=== PATIENT | female | born 1950 | race Hispanic/Latino ===

== ENCOUNTER → 2023-04-27 | Outpatient (CLI) | payer MEDICARE | END | disposition home or self-care (01) | LOC: RAH 10:27 | PROVIDERS: ATTEND Internal Medicine Nephrology | DX: Z12.31 Encounter for screening mammogram for malignant neoplasm of breast (principal) | CPT/HCPCS: 77067 ==

== ENCOUNTER → 2023-06-01 | Outpatient (CLI) | payer OTHER | END | disposition home or self-care (01) | LOC: OIH 08:28 | PROVIDERS: ATTEND Internal Medicine Cardiovascular Disease | DX: Z13.6 Encounter for screening for cardiovascular disorders (principal) | CPT/HCPCS: 75571 ==

== ENCOUNTER 2023-06-28 21:13 | Emergency (ER) | payer MEDICARE ==
[~2023-06-28] VITALS: Ht 154.9 cm; Wt 80.7 kg
[2023-06-28 22:12] VITALS: BP 160/70; PULSE 89; RESP 16; O2SAT 100
[2023-06-28 22:55] LABS: BASOPHILS # (AUTO) 0.03 K/uL (0.00-0.20); BASOPHILS % (AUTO) 0.3 % (0.0-5.0); EOSINOPHILS # (AUTO) 0.03 K/uL (0.00-0.70); EOSINOPHILS % (AUTO) 0.3 % (0.0-8.0); HEMATOCRIT 38.2 % (36-48); IMMATURE GRANULOCYTE ABSOLUTE 0.04 K/uL (0-1); LYMPHOCYTES # (AUTO) 2.3 K/uL (1.0-4.8); LYMPHOCYTES % (AUTO) 19.9 % (21.0-51.0); MEAN CORPUSCULAR HEMOGLOBIN 28.3 pg (27.0-33.0); MEAN CORPUSCULAR VOLUME 85.8 fL (79-99); MONOCYTES # (AUTO) 0.6 K/uL (0.1-1.0); MONOCYTES % (AUTO) 4.9 % (3.0-13.0); NEUTROPHILS # (AUTO) 8.4 K/uL (1.8-7.7); NEUTROPHILS % (AUTO) 74.2 % (40.0-77.0); PLATELET COUNT (AUTO) 276 K/uL (130-400); RED BLOOD CELL COUNT(AUTO) 4.45 MIL/uL (4.00-5.50); RED CELL DISTRIBUTION WIDTH 12.8 % (11.0-15.5); WHITE BLOOD COUNT (AUTO) 11.4 K/uL (4.8-10.8)
[2023-06-28 23:09] LABS: CREATININE 0.6 mg/dL (0.5-1.5); POTASSIUM 3.4 mmol/L (3.5-5.1)
[2023-06-28 23:13] LABS: ALBUMIN 3.9 g/dL (3.5-5.0); BILIRUBIN,TOTAL 0.2 mg/dL (0.2-1.0); TOTAL PROTEIN, SERUM 9.4 g/dL (6.0-8.3)
[2023-06-28 23:20] LABS: APPEARANCE,URINE CLEAR (CLEAR); BILIRUBIN,URINE NEGATIVE (NEGATIVE); GLUCOSE, URINE (UA) NEGATIVE (NEGATIVE); KETONES,URINE NEGATIVE (NEGATIVE); LEUKOCYTE ESTERASE ,URINE NEGATIVE Leu/uL (NEGATIVE); NITRATE,URINE NEGATIVE (NEGATIVE); OCCULT BLOOD,URINE NEGATIVE (NEGATIVE); PH,URINE 6.5 (5.0-8.0); PROTEIN,URINE NEGATIVE (NEGATIVE); UROBILINOGEN,URINE 0.2 mg/dL (0.2-1.0)
[2023-06-28 23:21] LABS: ADD UA MICROSCOPIC NO; COLOR,URINE Light-Yellow (YELLOW)
== END 2023-06-29 00:16 | disposition home or self-care (01) ==
LOC: EDH 21:13
DX: F41.9 Anxiety disorder, unspecified (principal); I10 Essential (primary) hypertension; Z90.49 Acquired absence of other specified parts of digestive tract
CPT/HCPCS: 36415; 80053; 81003; 84484; 85025; 93005

== ENCOUNTER → 2023-08-31 | Outpatient (CLI) | payer MEDICARE | END | disposition home or self-care (01) | LOC: RAH 14:42 | PROVIDERS: ATTEND Internal Medicine Nephrology | DX: Z78.0 Asymptomatic menopausal state (principal) | CPT/HCPCS: 77080 ==

== ENCOUNTER 2024-03-19 12:38 | Emergency (ER) | payer MEDICARE ==
[~2024-03-19] VITALS: Ht 154.9 cm; Wt 80.3 kg
[2024-03-19 13:21] LABS: BASOPHILS # (AUTO) 0.02 K/uL (0.00-0.20); BASOPHILS % (AUTO) 0.2 % (0.0-5.0); EOSINOPHILS # (AUTO) 0.05 K/uL (0.00-0.70); EOSINOPHILS % (AUTO) 0.6 % (0.0-8.0); HEMATOCRIT 37.1 % (36-48); IMMATURE GRANULOCYTE ABSOLUTE 0.03 K/uL (0-1); LYMPHOCYTES # (AUTO) 1.3 K/uL (1.0-4.8); LYMPHOCYTES % (AUTO) 15.6 % (21.0-51.0); MEAN CORPUSCULAR HEMOGLOBIN 29.2 pg (27.0-33.0); MEAN CORPUSCULAR HGB CONC 33.2 g/dL (32.0-36.0); MEAN CORPUSCULAR VOLUME 88.1 fL (79-99); MONOCYTES # (AUTO) 0.6 K/uL (0.1-1.0); NEUTROPHILS # (AUTO) 6.4 K/uL (1.8-7.7); NEUTROPHILS % (AUTO) 76.2 % (40.0-77.0); PLATELET COUNT (AUTO) 278 K/uL (130-400); RED BLOOD CELL COUNT(AUTO) 4.21 MIL/uL (4.00-5.50); RED CELL DISTRIBUTION WIDTH 13.2 % (11.0-15.5); WHITE BLOOD COUNT (AUTO) 8.3 K/uL (4.8-10.8)
[2024-03-19 13:40] LABS: CREATININE 0.7 mg/dL (0.5-1.0); POTASSIUM 3.9 mmol/L (3.5-5.1)
[2024-03-19 14:30] LABS: INR 0.98 (0.85-1.15); PROTHROMBIN TIME 10.6 SEC (9.6-11.6)
[2024-03-19 14:31] LABS: PARTIAL THROMBOPLASTIN TIME 29.3 SEC (26.3-35.5)
[2024-03-19 14:57] VITALS: BP 163/64; PULSE 94; RESP 16; O2SAT 96
== END 2024-03-19 15:30 | disposition home or self-care (01) ==
LOC: EDH 12:38
DX: R04.0 Epistaxis (principal); E78.00 Pure hypercholesterolemia, unspecified; I10 Essential (primary) hypertension; Z90.710 Acquired absence of both cervix and uterus
CPT/HCPCS: 36415; 80048; 85025; 85610; 85730

== ENCOUNTER 2024-10-04 18:22 | Emergency (ER) | payer MEDICARE ==
[~2024-10-04] VITALS: Ht 157.5 cm; Wt 79.8 kg
--- NOTE | 2024-10-04 18:29 | ERN ---
ED Note History of Present Illness Stated Complaint: BODY ACHES, LIGHT HEADED Time Seen by MD: 18:22 Time Seen by Midlevel: 18:22 Dictation: The patient is a 74-year-old female with a history of hypertension, hyperlipidemia presents to the emergency department with multiple complaints. Patient reports that she has been having a frontal headache for several weeks. Reports she takes tramadol which causes her to be dizzy. Patient reports that she was also having some nasal congestion, sore throat. Reports that she was eating today and her jaw started to hurt with chewing. Denies any nausea or vomiting. Allergies: Coded Allergies: thimerosal (Unverified Allergy, Unknown, 06/28/23) Home Meds Active Scripts Meclizine HCl (Meclizine HCl) 25 Mg Tablet, 25 MG PO TID for vertigo, #15 TAB 0 Refills Prov:RAÚL DANIELS [employer]GREASING [employer]UTION [employer]ER 10/04/24 Past Medical History Past Medical History: High Cholesterol, Hypertension Surgical History: Hysterectomy, Other Surgical History Other: RT OVARIAN TUMOR REMOVAL, RT EYE SX, SINUS SX Family History: DM, HTN Social History: Negative, Lives with family History: Not Applicable RN Note Reviewed/Agreed w/PFSH: Yes Review of System Dictation Constitutional: Negative for fever,chills, and weight loss Eyes: Negative for injury, pain,redness, and discharge ENT: Negative for injury,pain or swelling positive for sore throat, nasal congestion Cardiovascular: Negative for chest pain, palpitations, and edema Respiratory: Negative for shortness of breath, cough, and wheezing, Abdomen/GI: Negative for abdominal pain, nausea, vomiting, diarrhea, and constipation Back: Negative for injury and pain : Negative for injury, bleeding and discharge MS/Extremity: Negative for injury and deformity Skin: Negative for rash, and discoloration Neuro: Negative for weakness, numbness, tingling, and seizure positive for headache Psych: Negative for suicide ideation, homicidal ideation, and hallucinations Initial Vital Sign VS Vital Signs Date Time Temp Pulse Resp B/P (MAP) Pulse Ox O2 Delivery O2 Flow Rate FiO2 10/04/24 18:50 97.0 104 20 198/81 97 10/04/24 20:39 Room Air* 0 21 Physical Exam Dictation Vital Signs reviewed General Appearance: Alert, oriented x 3, no acute distress, well developed, nourished. Head and Face: non-traumatic. Eyes: PERRL, pink conjunctivas, eyelid no trauma, anterior chamber with arcus senilis. Ears: Pinnas intact and no signs of trauma or erythema ear canals clear and no discharge TM no erythema Nose: No discharge, no bleeding. Oropharynx: Mouth normal, tongue pink. pharynx clear,no erythema, tonsils no exudates, no abscesses noted, mucous membrane moist Neck: Supple, non-tender, no thyromegaly, no masses, no JVD, no bruits Breast:Deferred Chest:No tenderness, no crepitus, no paradoxical movement, no retractions Lungs:Clear, well-ventilated, symmetric, no rales, no wheezing, no rhonchi, no stridor, good breath sounds bilaterally Heart: Regular rate, regular rhythm, no murmur, no gallops Vascular: no peripheral edema, Abdomen: Soft, positive bowel sounds, nondistended, no guarding, nontender, no rebound, no masses no hepatomegaly, no splenomegaly, no Rivera's sign, no hernias. Rectal: Deferred Genital: Deferred Neurological: Normal speech, motor function intact, sensory function intact , upper extremities equal and strength, lower extremities equal and strength Musculoskeletal: Neck nontender, full range of motion, back nontender, full range of motion, Extremities: nontender, full range of motion Skin: Color pink, dry, no turgor, no rash, no lacerations, no abrasions, no contusions. Lymphatic: Deferred Results (Laboratory/Radiology) Laboratory/Radiology Laboratory Tests Test 10/04/24 19:50 10/04/24 19:51 Influenza Type A Antigen Negative For Type A Influenza Type B Antigen Negative For Type B SARS-CoV-2 Antigen (Rapid) PRESUMPTIVE NEGATIVE White Blood Count 8.5 K/uL (4.8-10.8) Red Blood Count 3.88 MIL/uL (4.00-5.50) L Hemoglobin 11.0 g/dL (12.0-16.0) L Hematocrit 34.1 % (36-48) L Mean Corpuscular Volume 87.9 fL (79-99) Mean Corpuscular Hemoglobin 28.4 pg (27.0-33.0) Mean Corpuscular Hemoglobin Concent 32.3 g/dL (32.0-36.0) Red Cell Distribution Width 12.9 % (11.0-15.5) Platelet Count 261 K/uL (130-400) Mean Platelet Volume 8.3 fL (7.5-10.5) Immature Granulocyte % (Auto) 0.5 % (0-1) Neutrophils (%) (Auto) 65.9 % (40.0-77.0) Lymphocytes (%) (Auto) 24.3 % (21.0-51.0) Monocytes (%) (Auto) 7.6 % (3.0-13.0) Eosinophils (%) (Auto) 1.3 % (0.0-8.0) Basophils (%) (Auto) 0.4 % (0.0-5.0) Neutrophils # (Auto) 5.6 K/uL (1.8-7.7) Lymphocytes # (Auto) 2.1 K/uL (1.0-4.8) Monocytes # (Auto) 0.7 K/uL (0.1-1.0) Eosinophils # (Auto) 0.11 K/uL (0.00-0.70) Basophils # (Auto) 0.03 K/uL (0.00-0.20) Absolute Immature Granulocyte (auto 0.04 K/uL (0-1) Nucleated Red Blood Cells 0.0 % (0.0-0.19) Sodium Level 132 mmol/L (136-145) L Potassium Level 3.1 mmol/L (3.5-5.1) L Chloride Level 99 mmol/L (101-111) L Carbon Dioxide Level 37 mmol/L (21-32) H Blood Urea Nitrogen 16 mg/dL (7-18) Creatinine 0.5 mg/dL (0.5-1.0) Glomerular Filtration Rate Calc 99 mL/min (>90) Random Glucose 103 mg/dL (70-105) Total Calcium 9.5 mg/dL (8.5-10.1) Troponin I High Sensitivity 14 ng/L (4-50) REASON: headache ORDERING PHYSICIAN: RAÚL DANIELS PROCEDURE: HEAD WO - CT HEAD/BRAIN W/O CONTRAST CT HEAD WITHOUT CONTRAST INDICATION: Headache TECHNIQUE: Noncontrast axial helical CT images from the vertex through the skull base using 5 mm slice thickness without contrast material. CT was performed with one or more of the following dose reduction techniques: Automated exposure control, adjustment of the mA and/or kV according to patient size, or use of iterative reconstruction technique. COMPARISON: None FINDINGS: The cerebral and cerebellar hemispheres are age-appropriate in appearance. No evidence for abnormal extra-axial fluid collections or masses. The ventricles and sulci are normal in size and configuration. No evidence for intracranial parenchymal, epidural, or subdural hemorrhage, mass effect or midline shift. The grayson-white matter differentiation is well preserved. No secondary evidence to suggest acute ischemia. The brainstem and cerebellum appear normal. The visualized orbits appear unremarkable. The visible paranasal sinuses and mastoid air cells are clear. The calvarium appears normal. IMPRESSION: No acute intracranial process identified. Labs Reviewed?: Yes EKG: (+) rhythm (Sinus rhythm) EKG Comment: Date:10/04/2024 Time: 1918 Ventricular rate:73 [place] interval:150 QRS duration:80 QT/QTc:404 EKG interpretation: Sinus rhythm Reviewed by ED Attending no STEMI ED Course ED Course Orders Procedure Category Date Status Time Cbc With Differential LAB 10/04/24 Complete 18:59 Chest 1vw RAD 10/04/24 Resulted 18:59 12 Lead Ekg Tracing- EKG 10/04/24 Logged Technical 18:59 Acetaminophen 325 Tab PHA 10/04/24 Complete (Tylenol 325mg Tab 19:00 Troponin I High LAB 10/04/24 Complete Sensitivity 18:59 Basic Metabolic Panel LAB 10/04/24 Complete 18:59 Ct Head/Brain W/O CT 10/04/24 Resulted Contrast 18:59 Covid19 (Sars Antigen LAB 10/04/24 Complete Rapid) 18:59 Influenza Type A & B, LAB 10/04/24 Complete Rapid 18:59 Potassium Bicarb/Cit PHA 10/04/24 Complete Ac 25meq (K-Lyte Ta 21:00 Current Medications Medications (Trade) Dose Ordered Sig/Sunshine Route PRN Reason Start Time Stop Time Status Last Admin Dose Admin Acetaminophen (TYLenol 325MG TAB) 650 mg ONCE ONCE PO 10/04/24 19:00 10/04/24 19:03 DC 10/04/24 20:23 Potassium Bicarbonate (K-Lyte Tablet Eff 25 Meq Tablet.eff) 25 meq ONCE PO 10/04/24 21:00 10/04/24 21:34 DC 10/04/24 20:50 Vital Signs Date Time Temp Pulse Resp B/P (MAP) Pulse Ox O2 Delivery O2 Flow Rate FiO2 10/04/24 20:39 97.0 74 18 157/75 98 Room Air* 0 21 10/04/24 18:50 97.0 104 20 198/81 97 Medical Decision Making MDM The patient is a 74-year-old female with a history of hypertension, hyperlipidemia presents to the emergency department with multiple complaints. Patient reports that she has been having a frontal headache for several weeks. Reports she takes tramadol which causes her to be dizzy. Patient reports that she was also having some nasal congestion, sore throat. Reports that she was eating today in her jaw started to hurt. Denies any nausea or vomiting. CBC showed no leukocytosis, mild normocytic anemia, chemistry showed mild hyponatremia, hypokalemia, normal renal function, negative troponin, serology negative. CT showed no acute pathology. EKG showed normal sinus rhythm, patient in no acute distress, neurologically intact., nontoxic appearance. Will be discharged to follow up with PCP. Differential diagnosis: ACS, pneumonia, upper respiratory infection, intracerebral hemorrhage Need for hospitalization: Patient does not meet criteria for hospitalization. There are no social concerns with this patient. DX & DISP Disposition: Discharge Departure Impression: Primary Impression: URI (upper respiratory infection) Additional Impressions: Hypokalemia, Hyponatremia, Headache, Anemia Condition: Stable Scripts Meclizine HCl (Meclizine HCl) 25 Mg Tablet 25 MG PO TID for vertigo, #15 TAB 0 Refills Prov: RAÚL DANIELS 10/04/24 Referrals: GREGORY GONZALES MD (PCP) Time of Disposition: 20:58 I have reviewed the case, and I agree with, Diagnosis and Plan I performed a substantive portion of the visit. I have reviewed and personally made and approve the management plan that is documented in the notes by myself with RUSTY/resident. I acknowledged full responsibility for the patient's management plan. RAÚL DANIELS Oct 04, 2024 18:29 RAFAELA HERRERA DO Oct 05, 2024 00:03
--- NOTE | 2024-10-04 19:41 | HMCIMG ---
CT HEAD WITHOUT CONTRAST INDICATION: Headache TECHNIQUE: Noncontrast axial helical CT images from the vertex through the skull base using 5 mm slice thickness without contrast material. CT was performed with one or more of the following dose reduction techniques: Automated exposure control, adjustment of the mA and/or kV according to patient size, or use of iterative reconstruction technique. COMPARISON: None FINDINGS: The cerebral and cerebellar hemispheres are age-appropriate in appearance. No evidence for abnormal extra-axial fluid collections or masses. The ventricles and sulci are normal in size and configuration. No evidence for intracranial parenchymal, epidural, or subdural hemorrhage, mass effect or midline shift. The grayson-white matter differentiation is well preserved. No secondary evidence to suggest acute ischemia. The brainstem and cerebellum appear normal. The visualized orbits appear unremarkable. The visible paranasal sinuses and mastoid air cells are clear. The calvarium appears normal. IMPRESSION: No acute intracranial process identified.
[2024-10-04 19:59] LABS: BASOPHILS # (AUTO) 0.03 K/uL (0.00-0.20); BASOPHILS % (AUTO) 0.4 % (0.0-5.0); EOSINOPHILS # (AUTO) 0.11 K/uL (0.00-0.70); EOSINOPHILS % (AUTO) 1.3 % (0.0-8.0); HEMATOCRIT 34.1 % (36-48); IMMATURE GRANULOCYTE ABSOLUTE 0.04 K/uL (0-1); LYMPHOCYTES # (AUTO) 2.1 K/uL (1.0-4.8); LYMPHOCYTES % (AUTO) 24.3 % (21.0-51.0); MEAN CORPUSCULAR HEMOGLOBIN 28.4 pg (27.0-33.0); MEAN CORPUSCULAR HGB CONC 32.3 g/dL (32.0-36.0); MEAN CORPUSCULAR VOLUME 87.9 fL (79-99); MONOCYTES # (AUTO) 0.7 K/uL (0.1-1.0); MONOCYTES % (AUTO) 7.6 % (3.0-13.0); NEUTROPHILS # (AUTO) 5.6 K/uL (1.8-7.7); NEUTROPHILS % (AUTO) 65.9 % (40.0-77.0); PLATELET COUNT (AUTO) 261 K/uL (130-400); RED BLOOD CELL COUNT(AUTO) 3.88 MIL/uL (4.00-5.50); RED CELL DISTRIBUTION WIDTH 12.9 % (11.0-15.5); WHITE BLOOD COUNT (AUTO) 8.5 K/uL (4.8-10.8)
[2024-10-04 20:14] LABS: CREATININE 0.5 mg/dL (0.5-1.0)
[2024-10-04 20:18] LABS: POTASSIUM 3.1 mmol/L (3.5-5.1)
[2024-10-04] MEDS: acetaMINOPHEN 325 MG TAB PO ONE (20:23)
[2024-10-04 20:25] LABS: COVID19 (SARS ANTIGEN RAPID) PRESUMPTIVE NEGATIVE (NEGATIVE); INFLUENZA TYPE A Negative For Type A (NEGATIVE); INFLUENZA TYPE B Negative For Type B (NEGATIVE)
[2024-10-04 20:39] VITALS: BP 157/75; PULSE 74; RESP 18; TEMP 97; O2SAT 98
[2024-10-04] MEDS: PoTASSium BIcarbonate/CIT AC 25 MEQ TABLET.EFF PO SCH (20:50)
[2024-10-04] MEDS ORDERED: MECL-302 PO (21:31)
--- NOTE | 2024-10-04 23:04 | HMCIMG ---
CHEST 1VW HISTORY: Chest pain COMPARISON: None FINDINGS: A frontal projection of the chest was obtained. Mild bilateral pulmonary infiltrates are seen may be related to mild pulmonary vascular congestion with possible superimposed pneumonitis. The heart is borderline enlarged. Degenerative changes are seen. No evidence of aortic calcification is seen. IMPRESSION: 1. Mild bilateral pulmonary infiltrates are seen may be related to mild pulmonary vascular congestion with possible superimposed pneumonitis.
--- NOTE | 2024-10-05 06:23 | EKG ---
[facility] Test Date: 2024-10-04 Test Time: 19:19:17 Pat Name: OVIDIO AIKEN Department: ED Room: Gender: Female [employer]iner: [id number] : 1950 Requested By: RAÚL DANIELS Order Number: [id number] Reading MD: Measurements Intervals [place] Rate: 89 P: 73 MN: 150 QRS: 1 QRSD: 80 T: 18 QT: 332 QTc: 404 Interpretive Statements Sinus rhythm No previous ECG available for comparison Please click the below link to view image of tracing.
== END 2024-10-04 21:33 | disposition home or self-care (01) ==
LOC: EDH 18:22
DX: J06.9 Acute upper respiratory infection, unspecified (principal); E87.6 Hypokalemia; E78.00 Pure hypercholesterolemia, unspecified; D64.9 Anemia, unspecified; R51.9 Headache, unspecified; E87.1 Hypo-osmolality and hyponatremia; I10 Essential (primary) hypertension; Z90.710 Acquired absence of both cervix and uterus; Z79.899 Other long term (current) drug therapy; Z20.822 Contact with and (suspected) exposure to COVID-19
CPT/HCPCS: 36415; 70450; 71045; 80048; 84484; 85025; 87426; 87804; 93005; 99285

== ENCOUNTER → 2024-10-18 | Outpatient (CLI) | payer MEDICARE ==
[~2024-10-18] MED LIST: MECL-302 PO
--- NOTE | 2024-10-18 13:20 | HMCIMG ---
Exam Type: CHEST 1VW Clinical Information: Shortness of breath Comparison: None Findings: The lungs are clear of infiltrates. The heart is normal in size. The bony and soft tissue structures of the chest are unremarkable. Impression: Clear lungs.
== END | disposition home or self-care (01) ==
LOC: RAH 12:13
PROVIDERS: ATTEND Internal Medicine Nephrology
DX: R06.02 Shortness of breath (principal)
CPT/HCPCS: 71045

== ENCOUNTER 2025-04-23 15:31 | Observation (INO) | payer MEDICARE ==
[~2025-04-23] VITALS: Ht 154.9 cm; Wt 81.0 kg
[~2025-04-23 15:31] MED LIST changes: -AMLO2.5T4 PO; -ESTR1TAB21 PO; -FURO20TA4 PO; -LEVO100 PO; -LOSA50TA64 PO; -TRAM50TA4 PO
--- NOTE | 2025-04-23 16:05 | ERN ---
General Chief Complaint: Dizzy/Light Headed Stated Complaint: DIZZY AFTER XRAY Time Seen by MD: 15:36 Source: patient History of Present Illness Initial Comments PATIENT IS A 74-YEAR-OLD FEMALE COMING IN COMPLAINING OF WORSENING VERTIGO. PER PATIENT SHE WAS DIAGNOSED WITH A VERTIGO MANY WHEN SHE GOT COVID. HE STATES HE WAS LAYING DOWN GETTING AN X-RAY WHEN SHE GOT UP SHE FELT VERY DIZZY ALSO DOWN. STATES HE GOT DIAPHORETIC WELL. Allergies: Coded Allergies: thimerosal (Unverified Allergy, Unknown, 06/28/23) Home Meds Active Scripts Meclizine HCl (Meclizine HCl) 25 Mg Tablet, 25 MG PO TID for vertigo, #15 TAB 0 Refills Prov:RAÚL DANIELS HOSPICE PHYSICIAN 10/04/24 Past Medical History Past Medical History: High Cholesterol, Hypertension Medical History Other: VERTIGO Past Surgical History: Hysterectomy, Other Surgical History Other: RT OVARIAN TUMOR REMOVAL, RT EYE SX, SINUS SX Family History Family History: DM, HTN Social History Social History: Negative, Lives with family Female( History) History: Not Applicable ROS Dictation CONSTITUTIONAL: NO CHILLS, NO FEVER, NO WEAKNESS, NO DIAPHORESIS, NO MALAISE. HEAD/FACE: NO SIGNS OF TRAUMA. EENT: NO EYE PAIN, NO BLURRED VISION, NO TEARING, NO DOUBLE VISION, NO EAR PAIN, NO EAR DISCHARGE, NO NOSE PAIN, NO NASAL CONGESTION, NO THROAT PAIN, NO THROAT SWELLING, NO MOUTH PAIN. RESPIRATORY: NO COUGH, NO ORTHOPNEA, NO SOB, NO STRIDOR, NO WHEEZING. CARDIOVASCULAR: NO CHEST PAIN, NO EDEMA, NO PALPITATIONS, NO SYNCOPE. GASTROINTESTINAL/ABDOMINAL: NO ABDOMINAL PAIN, NO CONSTIPATION, NO DIARRHEA, NO NAUSEA, NO VOMITING. GENITOURINARY: NO ABNORMAL DISCHARGE, NO DYSURIA, NO FREQUENT URINATION, NO HEMATURIA. NO COMPLAINTS OF PAIN IN THE GENITALS. MUSCULOSKELETAL: NO BACK PAIN, NO GOUT, NO JOINT PAIN, NO JOINT SWELLING, NO MUSCLE PAIN, NO MUSCLE STIFFNESS, NO NECK PAIN. INTEGUMENTARY: NO CHANGE IN COLOR, NO CHANGE IN HAIR/NAILS, NO DRYNESS, NO LESION, NO LUMPS, NO RASH. NEUROLOGICAL/PSYCH: NO ANXIETY, NOT DEPRESSED, NO EMOTIONAL PROBLEM, NO HEADACHE, NO NUMBNESS, NO PRE-EXISTING DEFICIT, NO HISTORY OF SEIZURES, NO TREMORS, NO WEAKNESS. HEMATOLOGIC/LYMPHATIC: NOT ANEMIC, NO HISTORY OF BLOOD CLOTS, NO APPARENT BLEEDING, NO BRUISING, GLANDS NOT SWOLLEN. ALL SYSTEMS NEGATIVE, EXCEPT NOTED. Physical Exam Physical Exam Dictation VITAL SIGNS: REVIEWED. GENERAL APPEARANCE: ALERT, ORIENTED X3, NO ACUTE DISTRESS, OBESE. HEAD AND FACE: NON-TRAUMATIC. EYES: PERRL, PINK CONJUNCTIVAS, EYELID NO TRAUMA, ANTERIOR CHAMBER CLEAR. EARS: PINNAS INTACT AND NO SIGNS OF TRAUMA OR ERYTHEMA. EAR CANALS CLEAR AND NO DISCHARGE. TMS NO ERYTHEMA. NOSE: NO DISCHARGE, NO BLEEDING. OROPHARYNX: MOUTH NORMAL, TEETH NO CARIES, TONGUE PINK. PHARYNX CLEAR, NO ERYTHEMA. TONSILS NO EXUDATES, NO ABSCESSES NOTED. MUCOUS MEMBRANE MOIST. NECK: SUPPLE, NON-TENDER, NO THYROMEGALY, NO MASSES, NO JVD, NO BRUITS. BREAST: DEFERRED. CHEST: NO TENDERNESS, NO CREPITUS, NO PARADOXICAL MOVEMENT, NO RETRACTIONS. LUNGS: CLEAR, WELL-VENTILATED, SYMMETRIC, NO RALES, NO WHEEZING, NO RHONCHI, NO STRIDOR, GOOD BREATH SOUNDS BILATERALLY. HEART: REGULAR RATE, REGULAR RHYTHM, NO MURMUR, NO GALLOPS. VASCULAR: NO PERIPHERAL EDEMA. ABDOMEN: SOFT, POSITIVE BOWEL SOUNDS, NONDISTENDED, NO GUARDING, NONTENDER, NO REBOUND, NO MASSES NO HEPATOMEGALY, NO SPLENOMEGALY, NO FORRESTER'S SIGN, NO HERNIAS. RECTAL: DEFERRED. GENITAL: DEFERRED. NEUROLOGICAL: NORMAL SPEECH, GROSS MOTOR FUNCTION INTACT, GROSS SENSORY FUNCTION INTACT. MUSCULOSKELETAL: NECK NONTENDER, FULL RANGE OF MOTION, BACK NONTENDER, FULL RANGE OF MOTION. EXTREMITIES: NONTENDER, FULL RANGE OF MOTION. SKIN: COLOR PINK, DRY, NO TURGOR, NO RASH, NO LACERATIONS, NO ABRASIONS, NO CONTUSIONS. LYMPHATICS: DEFERRED. Results Laboratory and Microbiology Lab and Micro Result Laboratory Tests Test 04/23/25 16:05 04/23/25 16:20 04/23/25 16:30 Influenza Type A Antigen Negative For Type A Influenza Type B Antigen Negative For Type B SARS-CoV-2, RNA, NAAT NEGATIVE SARS CoV-2 Urine Color LIGHT-YELLOW (YELLOW) Urine Appearance CLEAR (CLEAR) Urine pH 7.0 (5.0-8.0) Urine Specific [place] 1.025 (1.001-1.031) Urine Protein NEGATIVE mg/dL (NEGATIVE) Urine Glucose (UA) NEGATIVE mg/dL (NEGATIVE) Urine Ketones NEGATIVE mg/dL (NEGATIVE) Urine Occult Blood NEGATIVE (NEGATIVE) Urine Nitrate NEGATIVE (NEGATIVE) Urine Bilirubin NEGATIVE mg/dL (NEGATIVE) Urine Urobilinogen 0.2 mg/dL (0.2-1.0) Urine Leukocyte Esterase NEGATIVE [place]/uL White Blood Count 7.9 K/uL (4.8-10.8) Red Blood Count 3.78 MIL/uL (4.00-5.50) L Hemoglobin 10.8 g/dL (12.0-16.0) L Hematocrit 33.4 % (36-48) L Mean Corpuscular Volume 88.4 fL (79-99) Mean Corpuscular Hemoglobin 28.6 pg (27.0-33.0) Mean Corpuscular Hemoglobin Concent 32.3 g/dL (32.0-36.0) Red Cell Distribution Width 13.8 % (11.0-15.5) Platelet Count 246 K/uL (130-400) Mean Platelet Volume 8.4 fL (7.5-10.5) Immature Granulocyte % (Auto) 0.5 % (0-1) Neutrophils (%) (Auto) 68.7 % (40.0-77.0) Lymphocytes (%) (Auto) 22.9 % (21.0-51.0) Monocytes (%) (Auto) 5.5 % (3.0-13.0) Eosinophils (%) (Auto) 2.0 % (0.0-8.0) Basophils (%) (Auto) 0.4 % (0.0-5.0) Neutrophils # (Auto) 5.4 K/uL (1.8-7.7) Lymphocytes # (Auto) 1.8 K/uL (1.0-4.8) Monocytes # (Auto) 0.4 K/uL (0.1-1.0) Eosinophils # (Auto) 0.16 K/uL (0.00-0.70) Basophils # (Auto) 0.03 K/uL (0.00-0.20) Absolute Immature Granulocyte (auto 0.04 K/uL (0-1) Nucleated Red Blood Cells 0.0 % (0.0-0.19) Sodium Level 137 mmol/L (136-145) Potassium Level 3.7 mmol/L (3.5-5.1) Chloride Level 100 mmol/L (101-111) L Carbon Dioxide Level 32 mmol/L (21-32) Blood Urea Nitrogen 15 mg/dL (7-18) Creatinine 0.6 mg/dL (0.5-1.0) Glomerular Filtration Rate Calc 95 mL/min (>90) Random Glucose 100 mg/dL (70-105) Total Calcium 9.4 mg/dL (8.5-10.1) Troponin I High Sensitivity 10 ng/L (4-50) Labs Reviewed?: Yes EKG/XRAY/US/CT/MRI EKG Comment 08/2025 TIME 4:08 P.M. VENTRICULAR RATE 71 SINUS RHYTHM [place] [address] WAVE ELEVATION OR DEPRESSION X-RAY Comment [place] [address] [place] [address] IMAGING REPORT Signed PATIENT: OVIDIO AIKEN MR#: [id number] : 1950 SEX: F AGE: 74 LOCATION: [facility] ORDER 160 STATUS: REG ER REPORT#: [id number] SERVICE 160 REASON: VERTIGO C/P ORDERING PHYSICIAN: RAFAEL CHAND MD PROCEDURE: CXR1VW - CHEST 1VW CLINICAL INFORMATION Vertigo, chest pain COMPARISON None. TECHNIQUE Frontal view chest. FINDINGS Lines and tubes: None Lungs: Clear. Pleura: Unremarkable. No effusion or pneumothorax. Cardiomediastinal Silhouette: Unremarkable. Bones: Normal for age. Soft Tissues: Normal. IMPRESSION No acute cardiopulmonary findings. /[place] DICTATED BY: RAMONA GOODE MD DATE: 04/23/251747 ELECTRONICALLY SIGNED BY: RAMONA GOODE MD DATE: 04/23/251747 [facility] MDM: DIFFERENTIAL DIAGNOSIS: SYNCOPE, NEAR-SYNCOPE RATIONALE: TESTS CONSIDERED AND ORDERED SECONDARY TO SHARED DECISION MAKING INCLUDE: LABS, ECG AND RADIOLOGY PREVIOUS OUTSIDE RECORDS REVIEWED: OLD ER VISITS. RISK OF COMPLICATION AND/OR MORBIDITY OR MORTALITY OF PATIENT MANAGEMENT: NONE MEDICATIONS-PER MEDICATION RECONCILIATION NEED FOR HOSPITALIZATION: PATIENT DOES MEET CRITERIA FOR HOSPITALIZATION. NEED FOR EMERGENCY MAJOR/MINOR SURGERY: NO THERE ARE NO SOCIAL CONCERNS WITH THIS PATIENT. PRESCRIPTION DRUG MANAGEMENT PRESCRIPTIONS WILL INCLUDE SYMPTOMATIC CARE PATIENT'S PRIOR EXTERNAL MEDICAL RECORDS FROM OTHER ER VISITS WERE REVIEWED BY ME INDICATED. PRIOR TESTING AND RESULTS FROM PREVIOUS VISITS WERE REVIEWED. PRIOR TESTS WERE TAKEN INTO ACCOUNT WITH MEDICAL DECISION MAKING AND RESOURCE UTILIZATION, INDEPENDENT HISTORIAN/HISTORIANS WERE USED TO OBTAIN COMPLETE MEDICAL HISTORY. I INDEPENDENTLY INTERPRETED THE TEST THAT WERE PERFORMED, RESULTS WERE REVIEWED BY ME AND CONSIDERED FINDINGS ON RADIOLOGY IF ORDERED. MEDICAL MANAGEMENT AND EXAMINATION INTERPRETATION DISCUSSIONS WERE HAD BY ME WITH OTHER QUALIFIED HEALTHCARE PROFESSIONALS INDICATED FOR THE PATIENT'S CARE. PATIENT WILL BE ADMITTED UNDER THE CARE OFDr Mcclendon for ongoing management. Dr. Rincon is patient's rough patcher ED Course Orders Procedure Category Date Status Time Cbc With Differential LAB 04/23/25 Complete 16:01 Chest 1vw RAD 04/23/25 Resulted 16:01 12 Lead Ekg Tracing- EKG 04/23/25 Complete Technical 16:01 0.9%Nacl 1000ml (Ns PHA 04/23/25 Complete 1000ml) 16:30 Troponin I High LAB 04/23/25 Complete Sensitivity 16:01 Urinalysis Profile LAB 04/23/25 Complete 16:01 Basic Metabolic Panel LAB 04/23/25 Complete 16:01 Covid Rna Naat LAB 04/23/25 Complete 16:01 Influenza Type A & B, LAB 04/23/25 Complete Rapid 16:01 Meclizine Hcl 25 Mg PHA 04/23/25 Complete (Antivert 25 Mg) 16:30 Current Medications Medications (Trade) Dose Ordered Sig/Sunshine Route PRN Reason Start Time Stop Time Status Last Admin Dose Admin Meclizine HCl (ANTIvert 25 mg) 25 mg ONCE ONCE PO 04/23/25 16:30 04/23/25 16:31 DC 04/23/25 16:15 Sodium Chloride 1,000 ml @ 0 mls/hr ONCE ONCE IV 04/23/25 16:30 04/23/25 16:31 DC 04/23/25 16:15 Vital Signs Date Time Temp Pulse Resp B/P (MAP) Pulse Ox O2 Delivery O2 Flow Rate FiO2 04/23/25 15:50 97.9 76 16 129/66 98 Room Air* 0 21 04/23/25 15:32 97.9 76 16 129/66 98 Room Air 0 DX & DISP Disposition: Inpatient Decision to Admit Time: 17:46 Departure Impression: Primary Impression: Syncope Additional Impression: Near syncope Condition: Stable Referrals: GREGORY GONZALES MD (PCP) RAFAEL CHAND MD Apr 23, 2025 16:05
--- NOTE | 2025-04-23 16:12 | EKG ---
[facility] Test Date: 2025-04-23 Test Time: 16:08:48 Pat Name: OVIDIO AIKEN Department: ED Room: 418 Gender: F Renderer: [id number] : 1950 Requested By: RAFAEL CHAND Order Number: [id number] Reading MD: Caty Doran Measurements Intervals [place] Rate: 71 P: 46 MO: 141 QRS: 8 QRSD: 76 T: 33 QT: 393 QTc: 428 Interpretive Statements Sinus rhythm Low voltage, precordial leads Compared to ECG 10/04/2024 19:19:17 Low QRS voltage now present Electronically Signed On 04-24-2025 11:21:00 CDT by Caty Doran Please click the below link to view image of tracing.
[2025-04-23] MEDS: 0.9%NACL 1000ML 1,000 ML IV ONE (16:15)
[2025-04-23 16:27] LABS: SARS-CoV-2, RNA, NAAT NEGATIVE SARS CoV-2 (NEGATIVE)
[2025-04-23 16:35] LABS: INFLUENZA TYPE A Negative For Type A (NEGATIVE); INFLUENZA TYPE B Negative For Type B (NEGATIVE)
--- NOTE | 2025-04-23 16:50 | HMCIMG ---
CLINICAL INFORMATION Vertigo, chest pain COMPARISON None. TECHNIQUE Frontal view chest. FINDINGS Lines and tubes: None Lungs: Clear. Pleura: Unremarkable. No effusion or pneumothorax. Cardiomediastinal Silhouette: Unremarkable. Bones: Normal for age. Soft Tissues: Normal. IMPRESSION No acute cardiopulmonary findings. /[place]
[2025-04-23 16:55] LABS: APPEARANCE,URINE CLEAR (CLEAR); GLUCOSE, URINE (UA) NEGATIVE (NEGATIVE); LEUKOCYTE ESTERASE ,URINE NEGATIVE Leu/uL (NEGATIVE); NITRATE,URINE NEGATIVE (NEGATIVE); OCCULT BLOOD,URINE NEGATIVE (NEGATIVE)
[2025-04-23 16:56] LABS: IMMATURE GRANULOCYTE ABSOLUTE 0.04 K/uL (0-1); NUCLEATED RED BLOOD CELLS 0.0 % (0.0-0.19); PLATELET COUNT (AUTO) 246 K/uL (130-400); RED BLOOD CELL COUNT(AUTO) 3.78 MIL/uL (4.00-5.50); RED CELL DISTRIBUTION WIDTH 13.8 % (11.0-15.5); WHITE BLOOD COUNT (AUTO) 7.9 K/uL (4.8-10.8)
[2025-04-23 17:04] LABS: ADD UA MICROSCOPIC NO
[2025-04-23 17:08] LABS: CREATININE 0.6 mg/dL (0.5-1.0); GLOMERULAR FILTR. RATE CALC 95.0 mL/min (>90); GLUCOSE,RANDOM 100.0 mg/dL (70-105); SODIUM SERUM 137.0 mmol/L (136-145); UREA NITROGEN, BLOOD 15.0 mg/dL (7-18)
--- NOTE | 2025-04-23 18:30 | NUR ---
YONG OF CARE REQUESTED BY PATIENT REQUESTING CHANGE OF ATTENDING MD INFORMED DR Hart AND DR BURDEN ASSUMING CARE OF PATIENT
--- NOTE | 2025-04-23 19:15 | NUR ---
TRANSFERED CARE TO [facility] AT THIS TIME
[2025-04-23 19:35] LABS: ASPARTATE AMINOTRANSFERASE 22.0 U/L (10-37); TOTAL PROTEIN, SERUM 8.1 g/dL (6.0-8.3)
--- NOTE | 2025-04-23 19:44 | HMCIMG ---
CLINICAL INFORMATION Bilateral lower extremity swelling COMPARISON None. TECHNIQUE Castro scale, color flow, and spectral Doppler sonography of the deep venous system of the lower extremity FINDINGS RIGHT Common femoral vein: Patent and easily compressible without intraluminal thrombus. Femoral vein: Patent and easily compressible without intraluminal thrombus. Popliteal vein: Patent and easily compressible without intraluminal thrombus. Doppler analysis: Normal venous flow including appropriate response to Valsalva, respiratory variation, and calf augmentation. CALF Posterior tibial vein: Patent and easily compressible without intraluminal thrombus. Peroneal veins: Patent and easily compressible without intraluminal thrombus. LEFT Common femoral vein: Patent and easily compressible without intraluminal thrombus. Femoral vein: Patent and easily compressible without intraluminal thrombus. Popliteal vein: Patent and easily compressible without intraluminal thrombus. Doppler analysis: Normal venous flow including appropriate response to Valsalva, respiratory variation, and calf augmentation. CALF Posterior tibial vein: Patent and easily compressible without intraluminal thrombus. Peroneal veins: Patent and easily compressible without intraluminal thrombus. IMPRESSION No deep venous thrombosis. /[place]
--- NOTE | 2025-04-23 20:06 | NUR ---
TELE NEURO CONSULT DONE
[2025-04-23] MEDS ORDERED: IOHEXOL-350 75 ML VIAL IV ONE (20:12)
--- NOTE | 2025-04-23 20:37 | HP ---
[facility] HISTORY AND PHYSICAL Date of Service: Apr 23, 2025 Time of Service: 1909 HISTORY OF PRESENT ILLNESS: Date of service: 04/23/2025, patient was seen in ER room 18, patient was seen by me at 1910 74-year-old female with underlying history of hypertension, obesity, prior hi story of vertigo, recent history of COVID 19 infection six weeks ago, chronic pain, urinary incontinence the ER for further evaluation of vertiginous symptoms. Patient states that she had a fall about five days ago and was following up with her primary care physician. Primary care physician had ordered x-rays including left ankle x-ray, left knee x-ray, left elbow x-ray, left forearm x-ray and she was having these radiology studies done close to 2:00 p.m. While patient was having these studies home close to 2:00 p.m., when patient changed position, she had acute onset of severe vertiginous symptoms with significant diaphoresis, and pressure in the right ear. Symptoms were accompanied by nausea, significant palpitations, as well as she noticed that she was having jerking movement of upper and lower extremities. She denies previous history of seizures. She reports that she had symptoms of vertigo when she had COVID-19 infection about six weeks ago. She has had another prior episode of vertigo. Never had these severe symptoms of vertigo previously. Denies previous history of stroke. She is followed by Dr. Rincon with Cardiology as outpatient. She denies any previous history of VT or cardiac arrhythmia. While having the episodes of vertiginous symptoms, patient also felt very dizzy and lightheaded. She denies focal weakness of upper or lower extremities. Symptoms of vertigo ar e worsened with movement. She reports having history of hypertension and she takes losartan 25 mg twice daily at home. She reports having issues with low diastolic blood pressure, she cuts the dose of losartan 50 mg in half instead of taking full dose of losartan in the morning. On presentation to the hospital, patient was noted to be hypertensive with blood pressure ranging between 129-197/60s-70s. Presentation showed WBC count of 7900, hemoglobin 10.8, platelet count of 688158. BMP remarkable for sodium of 137, potassium 3.7, BUN of 15 , creatinine of 0.6. Patient was noted to be negative for influenza panel as well as SARs COVID 19 panel. Urinalysis was noted to be negative as well. REVIEW OF SYSTEMS CONSTITUTIONAL: Denies fevers, chills, or night sweats. No unintentional weight loss reported. NEUROLOGICAL: acute onset of vertigo close to 2:00 pm today ENT: No hearing loss, otalgia, otorrhea, rhinitis, rhinorrhea, hoarseness, or sore throat. CARDIOVASCULAR: Denies any exertional angina, dyspnea on exertion, orthopnea, paroxysmal nocturnal dyspnea, palpitations, life-threatening arrhythmias, claudication. PULMONARY: Denies any shortness of breath, cough, phlegm/sputum, hemoptysis, pleuritic chest pain. SLEEP: Denies morning headaches, daytime somnolence or napping. Denies difficulty falling asleep, staying asleep, waking from sleep. Denies knowledge of snoring. GASTROINTESTINAL: Denies any type of dysphagia to either liquids or solids. Denies nausea, vomiting, pyrosis, early satiety, abdominal pain, diarrhea, constipation, or changes in stool consistency or caliber. Denies coffee-ground emesis, hematemesis, hematochezia, or melanotic stools. GENITOURINARY: Denies frequency, urgency, nocturia, hematuria or incontinence (Storage/Irritative symptoms.) Low urinary stream, straining to void, urinary intermittency or hesitancy, splitting of the voiding stream, terminal dribbling. ENDOCRINOLOGIC: Denies polyuria, polydipsia, polyphagia or heat/cold intolerances. HEMATOLOGIC: Denies thrombophilia/previous clots, or coagulopathy/bleeding disorders. ONCOLOGIC: Denies personal history of malignancy. DERMATOLOGIC: Denies rashes or pruritus. PSYCHIATRIC: Denies any suicidal or homicidal ideation. Denies hallucinations. 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 NEUROLOGICAL: Cranial nerves II-XII grossly intact. Moving Bilateral upper and lower extremities with no significant weakness HEENT: Face is symmetric. Pupils are equal and reactive. Extraocular movements are intact. NECK: Supple. No JVD. No thyromegaly. No submental, submandibular, pre- /postauricular, occipital or supraclavicular lymphadenopathy. CHEST: Normal chest expansion. No Telemetry. LUNGS: Absence of any rales, rhonchi or any wheezing. CARDIOVASCULAR: Regular. S1 and S2 normal. No appreciable rubs, murmurs or gallops. ABDOMEN: Soft, nontender, and nondistended. There is no rebound, voluntary guarding, or rigidity. : Deferred. No Goode. EXTREMITIES: Patient has 1+ pitting edema bilateral lower Vital Sign (Last 24 Hours) 04/23/25 04/23/25 18:09 19:50 Temp 97.9 Pulse 93 Resp 18 B/P (MAP) 189/75 Pulse Ox 97 O2 Delivery Room Air* O2 Flow Rate 0 FiO2 21 LABS: Laboratory: Test 04/23/25 16:30 04/23/25 16:20 04/23/25 16:05 Range/Units White Blood Count 7.9 4.8-10.8 K/uL Red Blood Count 3.78 L 4.00-5.50 MIL/uL Hemoglobin 10.8 L 12.0-16.0 g/dL Hematocrit 33.4 L 36-48 % Mean Corpuscular Volume 88.4 79-99 fL Mean Corpuscular Hemoglobin 28.6 27.0-33.0 pg Mean Corpuscular Hemoglobin Concent 32.3 32.0-36.0 g/dL Red Cell Distribution Width 13.8 11.0-15.5 % Platelet Count 246 130-400 K/uL Mean Platelet Volume 8.4 7.5-10.5 fL Immature Granulocyte % (Auto) 0.5 0-1 % Neutrophils (%) (Auto) 68.7 40.0-77.0 % Lymphocytes (%) (Auto) 22.9 21.0-51.0 % Monocytes (%) (Auto) 5.5 3.0-13.0 % Eosinophils (%) (Auto) 2.0 0.0-8.0 % Basophils (%) (Auto) 0.4 0.0-5.0 % Neutrophils # (Auto) 5.4 1.8-7.7 K/uL Lymphocytes # (Auto) 1.8 1.0-4.8 K/uL Monocytes # (Auto) 0.4 0.1-1.0 K/uL Eosinophils # (Auto) 0.16 0.00-0.70 K/uL Basophils # (Auto) 0.03 0.00-0.20 K/uL Absolute Immature Granulocyte (auto 0.04 0-1 K/uL Nucleated Red Blood Cells 0.0 0.0-0.19 % Sodium Level 137 136-145 mmol/L Potassium Level 3.7 3.5-5.1 mmol/L Chloride Level 100 L 101-111 mmol/L Carbon Dioxide Level 32 21-32 mmol/L Blood Urea Nitrogen 15 7-18 mg/dL Creatinine 0.6 0.5-1.0 mg/dL Glomerular Filtration Rate Calc 95 >90 mL/min Random Glucose 100 70-105 mg/dL Hemoglobin A1c 5.5 4.0-6.0 % Estimated Average Glucose (eAG) 111 70-126 mg/dL Total Calcium 9.4 8.5-10.1 mg/dL Magnesium Level 1.80 1.80-2.40 mg/dL Total Bilirubin 0.3 0.2-1.0 mg/dL Direct Bilirubin 0.1 0.0-0.3 mg/dL Aspartate Amino Transf (AST/SGOT) 22 10-37 U/L Alanine Aminotransferase (ALT/SGPT) 20 12-78 U/L Alkaline Phosphatase 96 50-136 U/L Troponin I High Sensitivity 10 4-50 ng/L B-Type Natriuretic Peptide 61 0-100 pg/mL Total Protein 8.1 6.0-8.3 g/dL Albumin 3.2 L 3.5-5.0 g/dL Thyroid Stimulating Hormone (TSH) 1.74 0.36-3.74 uIU/mL Urine Color LIGHT-YELLOW YELLOW Urine Appearance CLEAR CLEAR Urine pH 7.0 5.0-8.0 Urine Specific [place] 1.025 1.001-1.031 Urine Protein NEGATIVE NEGATIVE mg/dL Urine Glucose (UA) NEGATIVE NEGATIVE mg/dL Urine Ketones NEGATIVE NEGATIVE mg/dL Urine Occult Blood NEGATIVE NEGATIVE Urine Nitrate NEGATIVE NEGATIVE Urine Bilirubin NEGATIVE NEGATIVE mg/dL Urine Urobilinogen 0.2 0.2-1.0 mg/dL Urine Leukocyte Esterase NEGATIVE NEGATIVE [place]/uL Influenza Type A Antigen Negative For Type A NEGATIVE Influenza Type B Antigen Negative For Type B NEGATIVE SARS-CoV-2, RNA, NAAT NEGATIVE SARS CoV-2 NEGATIVE Current Medications Medications (Trade) Dose Ordered Sig/Sunshine Route PRN Reason Start Time Stop Time Status Last Admin Dose Admin Acetaminophen (TYLenol 325MG TAB) 650 mg Q6H PRN PO MILD PAIN (1-3) 04/23/25 18:00 05/23/25 17:59 Enoxaparin Sodium (Lovenox) 30 mg DAILY SQ 04/24/25 09:00 05/24/25 08:59 Famotidine (Pepcid 20mg Tab) 20 mg BID PO 04/23/25 21:00 05/23/25 20:59 Insulin Human Regular (humuLIN R 100 UNIT/ML 3ML) INSULIN SLIDING SCAL... ACHS SQ 04/23/25 21:00 04/23/25 19:18 DC Labetalol HCl (TRANdate 20MG SYG) 10 mg Q6H PRN IV for SBP> 180 04/23/25 20:00 05/23/25 19:59 Levothyroxine Sodium (SYNTHroid 100MCG TAB) 100 mcg DAILY@0630 PO 04/24/25 06:30 05/24/25 06:29 Losartan Potassium (CozAAR 25MG TAB) 25 mg BID PO 04/23/25 21:00 05/23/25 20:59 Meclizine HCl (ANTIvert 12.5 mg) 12.5 mg TID PRN PO DIZZINESS 04/23/25 19:30 05/23/25 19:29 04/23/25 19:40 12.5 MG Ondansetron HCl (zoFRAN 4MG INJ) 4 mg Q6H PRN IVP NAUSEA/VOMITING 04/23/25 18:00 05/23/25 17:59 Oxybutynin Chloride (oxyBUTYnin chloRIDE) 5 mg TID PO 04/23/25 21:00 05/23/25 20:59 Tramadol HCl (UltRAM) 50 mg BID PRN PO MODERATE PAIN (4-6) 04/23/25 19:30 04/28/25 19:29 DIAGNOSTICS / RADIOLOGY: SERVICE 1601 REASON: VERTIGO C/P ORDERING PHYSICIAN: RAFAEL CHAND MD PROCEDURE: CXR1VW - CHEST 1VW CLINICAL INFORMATION Vertigo, chest pain COMPARISON None. TECHNIQUE Frontal view chest. FINDINGS Lines and tubes: None Lungs: Clear. Pleura: Unremarkable. No effusion or pneumothorax. Cardiomediastinal Silhouette: Unremarkable. Bones: Normal for age. Soft Tissues: Normal. IMPRESSION No acute cardiopulmonary findings. /[place] DICTATED BY: RAMONA GOODE MD DATE: 04/23/251747 ELECTRONICALLY SIGNED BY: RAMONA GOODE MD DATE: 04/23/251747 ASSESSMENT: Acute onset vertigo with diaphoresis and palpitations, POA Hypertensive urgency, POA History of prior vertigo, POA Recent history of SARs COVID 19 infection, six weeks ago, POA Anemia, mild, POA Underlying history of hypertension, POA Urinary incontinence POA Hypothyroidism, POA obesity, POA Recent history of fall, POA Obesity, POA PLAN: Patient will be admitted to cardiac telemetry floor We will obtain consultation with [facility] tele neurology, differential diagnosis of the acute vertigo remains benign positional vertigo, inner ear etiology, labyrinthitis versus we will rule out central causes including acute CVA, patie nt was seen by Dr. Arshad with Tele Neurology We will obtain a CT head without contrast and CT head and neck angiogram We will obtain MRI brain without contrast tomorrow morning if symptoms are not improving With regards to palpitations, EKG showed normal sinus rhythm, we will monitor patient closely in telemetry, and we will consider Holter monitor on follow up as outpatient, patient's case was discussed with Dr. Avila's with Cardiology, appreciate recommendations Patient does have bilateral lower extremity edema, we will obtain a venous Doppler to rule out any signs of DVT, we will obtain a 2D echocardiogram to assess LVEF We will resume patient's home antihypertensives including losartan 25 mg twice daily, patient reports having history of low diastolic blood pressure and reports being sensitive to antihypertensives, we will up titrate antihypertensives slowly based on blood pressure trend over the next 24-48 hours We will keep IV labetalol 10 mg p.r.n. for SBP greater than 180 We will keep patient on meclizine 12.5 mg t.i.d. p.r.n. for further episodes of vertigo We will follow up results of urinalysis to rule out any UTI We will see how patient progresses over the next 24-48 hours, we will request physical therapy evaluation as well, will follow up results of multiple radiographs that were done as outpatient in [facility] once available Labs to be repeated in the morning, DVT prophylaxis with Lovenox, GI prophylaxis with Pepcid Home medications will be resumed once list of medications obtained Date of service: 04/23/2025 Plan of care was discussed with patient at bedside, Russ Yu MD Advanced Care Planning: Which of the following were discussed: Hospice care: Yes __ No _X_ Therapeutic options: Yes _X_ No __ Advance directives: Yes _X_ No __ Other discussions: Discussed with who?: Patient Voluntary nature of this service was explained to the patient? Yes _x_ No __ Amount of time spent: 20 minutes RUSS YU MD Apr 23, 2025 20:37
[2025-04-23] MEDS: FAMOTIDINE 20MG TAB PO SCH (20:57)
--- NOTE | 2025-04-23 21:33 | HMCIMG ---
1. EXAM: CTA Head with Intravenous Contrast. CLINICAL HISTORY: Rule out significant intracranial vessel stenosis. TECHNIQUE: Post-contrast axial CTA images of the head were performed. Coronal and sagittal reformatted images were generated and reviewed. A CT scan is done according to ALARA (As Low as Reasonably Achievable). COMPARISON: None provided. FINDINGS: Anterior cerebral arteries are unremarkable. The anterior communicating artery is opacified. The Middle Cerebral arteries are unremarkable. Posterior communicating arteries are opacified. Posterior cerebral arteries are intact. Vertebral arteries are visualized. The basilar artery is unremarkable. Intracranial internal carotid arteries demonstrate normal enhancement. No evidence of aneurysm (greater than 4 mm) or arteriovenous lesion. IMPRESSION: No hemodynamically significant abnormality in the intracranial arteries. 2. EXAM: CTA Neck with Intravenous Contrast. CLINICAL HISTORY: Rule out significant intracranial vessel stenosis. TECHNIQUE: Post-contrast axial CTA images of the head were performed. Coronal and sagittal reformatted images were generated and reviewed. A CT scan is done according to ALARA (As Low as Reasonably Achievable). COMPARISON: None provided. FINDINGS: CCA, Carotid Bulb, ICA, and origin of the ECA are well opacified. Vertebral arteries are well opacified. Jugular veins are well opacified. The included great vessels of the aortic arch are grossly unremarkable. Included lung apices are grossly unremarkable. No acute bony changes. Mildly deviated nasal septum towards the left. IMPRESSION: No hemodynamically significant abnormality in the neck arteries. /[place]
--- NOTE | 2025-04-23 21:42 | HMCIMG ---
EXAM: Non-contrast CT examination of the Brain. CLINICAL HISTORY: Acute onset of vertigo. TECHNIQUE: Thin collimated axial CT images of the brain were obtained, with sagittal and coronal reformatted images also submitted. A CT scan is done according to ALARA (As Low as Reasonably Achievable). CONTRAST USED: None. COMPARISON: Prior CT brain dated 04 October 2024. FINDINGS: Mild generalized brain atrophy and chronic microvascular ischemic white matter disease. No acute intracranial abnormality is present. No acute cortical infarction, hemorrhage, mass, or mass effect. No hydrocephalus or abnormal extra-axial fluid collections. The posterior fossa is unremarkable. The skull base and calvarium are intact. The included portions of the paranasal sinuses and mastoid air cells are clear. Deviated nasal septum towards the left. IMPRESSION: No acute intracranial abnormality is present. Mild generalized brain atrophy and chronic microvascular ischemic white matter disease. Compared to the prior study, there is no significant interval change. /[place]
--- NOTE | 2025-04-23 23:00 | NUR ---
REPORT GIVEN TO MARV BEAL
[2025-04-23 23:15] VITALS: BP 147/92; PULSE 81; RESP 20; TEMP 98.3
[2025-04-24] VITALS (14 sets, daily range): BP systolic 131–160; BP diastolic 47–97; PULSE 77–104; RESP 16–20; TEMP 98–100.2; O2SAT 95–98
[2025-04-24 05:15] LABS: IMMATURE GRANULOCYTE ABSOLUTE 0.03 K/uL (0-1); NUCLEATED RED BLOOD CELLS 0.0 % (0.0-0.19); PLATELET COUNT (AUTO) 225 K/uL (130-400); RED BLOOD CELL COUNT(AUTO) 3.56 MIL/uL (4.00-5.50); RED CELL DISTRIBUTION WIDTH 14.0 % (11.0-15.5); WHITE BLOOD COUNT (AUTO) 7.1 K/uL (4.8-10.8)
[2025-04-24 05:30] LABS: CREATININE 0.7 mg/dL (0.5-1.0); GLOMERULAR FILTR. RATE CALC 91.0 mL/min (>90); GLUCOSE,RANDOM 98.0 mg/dL (70-105); SODIUM SERUM 139.0 mmol/L (136-145); UREA NITROGEN, BLOOD 9.0 mg/dL (7-18)
[2025-04-24] MEDS ORDERED: MEDROL DAY 1 BREAKFAST PO NR (07:30)
--- NOTE | 2025-04-24 08:28 | CONS ---
[facility] Cardiology Consultation Note Cardiology consult dictated for Kaylah Ware MD Date of service 04/24/2025 Primary senior embedded software engineer: Dr. Rincon Reason for consult: Hypertensive crisis Chief complaint: Severe dizziness and vertigo-like symptoms History of present illness: This is a 74-year-old female seen by Dr Rincon in 2022 for evaluation of palpitations. Presented for evaluation of severe vertigo- like symptoms. Patient apparently fell approximately five days ago and primary physician was evaluating with x-rays of the upper and lower extremities. While she was having procedures or testing done she changed position and had onset of severe vertigo type symptoms. She had COVID 19 infection about six weeks ago and had episodes of vertigo at that time. Twelve lead EKG was performed on arrival with no acute findings. Her blood pressure was on the high side 197 over 70s. Cardiology consult was requested for evaluation of hypertensive crisis. Review of systems: 14 point review of systems performed pertinent positives and negatives discussed in HPI Past medical history: Positive for hypertension, dyslipidemia, hypothyroidism, asthma. Negative for CVA TIA no PE no DVT no liver kidney disease Past surgical history: Oophorectomy, hysterectomy, right eye surgery and sinus surgery Past social history: Patient denies tobacco alcohol or illicit drug use Family history: Noncontributory Allergies: Patient is allergic to Thimerosal Review of blood work: CBC hemoglobin of 10.2 hematocrit 31.3, white blood cells of 7.1 and platelets of 225. BNP on admission 61 TSH of 1.74. Basic metabolic panel with a sodium of 139, potassium 4.2, BUN of nine creatinine of 0.1 Seven and a GFR of 91 with a magnesium of 1.70. Current medications: Lovenox 30 mg daily subQ, levothyroxine daily, [id number] mg p.o. b.i.d., meclizine PRN Physical exam: Blood pressure this morning 132/47 heart rate of 77 beats per minute and regular normal S1-S2 no rubs gallops murmurs noted. Neck is supple no jugular vein distention no carotid bruits. Bilateral breath sounds are clear to auscultation. Lower extremities with trace edema. Patient is alert awake and oriented. All others within normal limits. Scan of the head showed mild atrophy but no acute pathology Venous Dopplers of the lower extremities showed no evidence of deep vein thrombosis Assessment: Vertigo Hypertensive crisis Hypertension Dyslipidemia Asthma Plan: At this point we have a 74-year-old female was evaluated by Dr. Rincon in the past for palpitations. presented for evaluation of sudden onset of vertigo. She has contracted COVID three different times and every time one of her symptoms is severe vertigo. She was COVID positive six weeks ago. Blood pressure on admission systolic was 190 but this morning has a blood pressure of 132/47. Patient denies chest pain shortness of breath dizziness syncope or palpitations. Currently patient is up in the room ambulating without problem on telemetry SR 80-90bpm. She is pending 2D echocardiogram that was ordered yesterday on admission. We will observe blood pressure on [id number] b.i.d.. Further recommendations once results are available for review. \ATTESTATION BY PHYSICIAN I have seen and examined the patient. I reviewed the documentation, medical decision making, and treatment plan as noted by the mid-level provider above. I agree with the findings and plan of care. KAYLAH WARE MD, [facility] Apr 24, 2025 08:28 KAYLAH WARE MD Apr 24, 2025 10:44
[2025-04-24] MEDS ORDERED: MAGNESIUM 2GM PREMIX 50ML 50 ML IV PRN (08:30)
[2025-04-24] MEDS: ENOXAPARIN SODIUM 30 MG/0.3 ML SQ SCH (09:40)
[2025-04-24] MEDS: MAGNESIUM 2GM PREMIX 50ML 50 ML IV PRN (09:40)
--- NOTE | 2025-04-24 11:31 | NUR ---
DCP:HOME Pt currently lives alone in her home. pt does not have DME, home health, or provider services. Pt states that she is able to complete ADLs independently. PCP is Ashley Kline and uses [facility] for any RX needs. At [place] pt will want to go home and family can assist with transportation. Addendum: 04/24/25 at 1133 by SYDNEE MODI SS Amended: Links added.
[2025-04-24] MEDS ORDERED: MEDROL DAY 1 LUNCH AND DINNER PO NR ×2 (12:00)
[2025-04-24] MEDS ORDERED: LEVO100 PO (13:18)
[2025-04-24] MEDS ORDERED: AMLO2.5T4 PO (13:18)
[2025-04-24] MEDS ORDERED: FURO20TA4 PO (13:18)
[2025-04-24] MEDS ORDERED: TRAM50TA4 PO (13:18)
[2025-04-24] MEDS ORDERED: ESTR1TAB21 PO (13:18)
[2025-04-24] MEDS ORDERED: LOSA50TA64 PO (13:18)
--- NOTE | 2025-04-24 14:45 | NUR ---
SPEECH TRIGGER COMPLETED / ACUTE ONSET OF VERTIGO WITH PALPITATIONS Pt IS A 74 Y.O. FEMALE ADMITTED SECONDARY TO ACUTE ONSET OF VERTIGO WITH PALPITATIONS. Pt HAS A PAST MEDICAL HISTORY SIGNIFICANT FOR HTN, URINARY INCONTINENCE, HYPOTHYROIDISM, OBESITY, AND CHRONIC PAIN. PATIENT PRESENTED WITH NO PULMONARY INFILTRATES ON MOST RECENT CHEST X-RAY (04/23/2025). Pt CURRENTLY ON REGULAR TEXTURE AND THIN LIQUIDS. PER NURSE RUBEN, Pt TOLERATING DIET WITH NO OVERT S/S OF ASPIRATION. PLEASE REQUEST SPEECH THERAPY SERVICES FOR SKILLED BEDSIDE SWALLOW EVALUATION IF Pt PRESENTS WITH +S/S OF ASPIRATION SUCH COUGH RESPONSE, THROAT CLEAR, OR WET VOCAL QUALITY DURING ORAL INTAKE. ALL QUESTIONS ANSWERED AT THIS TIME. Addendum: 04/25/[address]IRA CUELLO Amended: Links added.
--- NOTE | 2025-04-24 14:48 | PN ---
[facility] PROGRESS NOTE Date of Service: Apr 24, 2025 Time of Service: 14:48 SUBJECTIVE: Mrs. Galindo is a 74-year-old female with underlying history of hypertension, obesity, prior history of vertigo, recent history of COVID 19 infection six weeks ago, chronic pain, urinary incontinence the ER for further evaluation of vertiginous symptoms. Today I examined the patient at bedside. She reports headache and backache since yesterday. 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 She reports improvement in dizziness from yesterday after taking meclizine in the ER. Head impulse test is negative for nystagmus and the gait is normal. She is put on continuous telemetry for arrhythmias put recorded none of them till now. She has mild tenderness in the sinuses and slight puffiness around the eyes. She has chronic dryness in the foot for which she uses ammonium lactate. On examination it is warm, red, slightly swollen and blisters. She has a history of COVID 6 weeks back and had a similar episode of vertigo then. We are suspecting post viral labyrinthitis that is causing the present vertigo symptoms so we plan to treat her with medrol madie young. Her blood pressure declined today to 132/49 as compared to 189/75 on arrival in the ER. She is on her home medication losartan 25 mg BID PO. Labs show magnesium of 1.7. Her MRI is scheduled this evening. Her orthostats show BP 146/62 HR 86 lying down BP 150/75 HR 91 Sitting BP 131/97 HR 88 Standing up. REVIEW OF SYSTEMS CONSTITUTIONAL: Headache, back ache present, Denies fevers, chills, or night sweats. No unintentional weight loss reported. NEUROLOGICAL: acute onset of vertigo close to 2:00 pm yesterday ENT: Slight facial pain, No hearing loss, otalgia, otorrhea, rhinitis, rhinorrhea, hoarseness, or sore throat, no tinnitus . CARDIOVASCULAR: Denies any exertional angina, dyspnea on exertion, orthopnea, paroxysmal nocturnal dyspnea, palpitations, life-threatening arrhythmias, claudication. PULMONARY: Denies any shortness of breath, cough, phlegm/sputum, hemoptysis, pleuritic chest pain. SLEEP: Denies morning headaches, daytime somnolence or napping. Denies difficulty falling asleep, staying asleep, waking from sleep. Denies knowledge of snoring. GASTROINTESTINAL: Denies any type of dysphagia to either liquids or solids. De nies nausea, vomiting, pyrosis, early satiety, abdominal pain, diarrhea, constipation, or changes in stool consistency or caliber. Denies coffee-ground emesis, hematemesis, hematochezia, or melanotic stools. GENITOURINARY: Urinary incontinence present. Denies frequency, urgency, nocturia, hematuria, Low urinary stream, straining to void, urinary intermit tency or hesitancy, splitting of the voiding stream, terminal dribbling. ENDOCRINOLOGIC: Denies polyuria, polydipsia, polyphagia or heat/cold intolerances. HEMATOLOGIC: Denies thrombophilia/previous clots, or coagulopathy/bleeding disorders. ONCOLOGIC: Denies personal history of malignancy. DERMATOLOGIC: stasis dermatitis, erythema on gilbert, hyperpigmentation on dorsal surface of left foot , few blisters on multiple parts of the leg PSYCHIATRIC: Denies any suicidal or homicidal ideation. Denies hallucinations. PHYSICAL EXAM GENERAL APPEARANCE: The patient is awake, alert, and oriented, in no acute cardiopulmonary distress. NEUROLOGICAL: Cranial nerves II-XII grossly intact. Moving Bilateral upper and lower extremities with no significant weakness HEENT: Face is symmetric. Pupils are equal and reactive. Extraocular movements are intact.tender maxillary and frontal sinuses , erythematous posterior oropharynx NECK: Supple. No JVD. No thyromegaly. No submental, submandibular, pre- /postauricular, occipital or supraclavicular lymphadenopathy. CHEST: Normal chest expansion. No Telemetry. LUNGS: Absence of any rales, rhonchi or any wheezing. CARDIOVASCULAR: Regular. S1 and S2 normal. No appreciable rubs, murmurs or gallops. ABDOMEN: Soft, nontender, and nondistended. There is no rebound, voluntary guarding, or rigidity. : Deferred. No Hough. EXTREMITIES: Warm, tender, 1+ non -pitting edema bilateral lower, excoriation valdes and hyperpigmentation on the left foot, multiple blisters on various parts of the foot. Vital Signs (last 8hr) Date Time Temp Pulse Resp B/P (MAP) Pulse Ox O2 Delivery O2 Flow Rate FiO2 04/24/25 12:08 89 18 135/73 99 Room Air 04/24/25 12:05 89 18 145/77 99 Room Air 04/24/25 12:00 98.1 89 18 145/63 99 Room Air 04/24/25 08:00 95 Room Air* 0 21 04/24/25 08:00 98.8 87 16 155/71 95 Room Air LABS: Laboratory: Test 04/24/25 12:16 04/24/25 04:32 04/23/25 16:30 04/23/25 16:20 Range/Units Whole Blood Glucose 114 H 70-110 MG/DL White Blood Count 7.1 4.8-10.8 K/uL Red Blood Count 3.56 L 4.00-5.50 MIL/uL Hemoglobin 10.2 L 12.0-16.0 g/dL Hematocrit 31.3 L 36-48 % Mean Corpuscular Volume 87.9 79-99 fL Mean Corpuscular Hemoglobin 28.7 27.0-33.0 pg Mean Corpuscular Hemoglobin Concent 32.6 32.0-36.0 g/dL Red Cell Distribution Width 14.0 11.0-15.5 % Platelet Count 225 130-400 K/uL Mean Platelet Volume 8.6 7.5-10.5 fL Immature Granulocyte % (Auto) 0.4 0-1 % Neutrophils (%) (Auto) 72.3 40.0-77.0 % Lymphocytes (%) (Auto) 19.0 L 21.0-51.0 % Monocytes (%) (Auto) 6.3 3.0-13.0 % Eosinophils (%) (Auto) 1.7 0.0-8.0 % Basophils (%) (Auto) 0.3 0.0-5.0 % Neutrophils # (Auto) 5.1 1.8-7.7 K/uL Lymphocytes # (Auto) 1.4 1.0-4.8 K/uL Monocytes # (Auto) 0.5 0.1-1.0 K/uL Eosinophils # (Auto) 0.12 0.00-0.70 K/uL Basophils # (Auto) 0.02 0.00-0.20 K/uL Absolute Immature Granulocyte (auto 0.03 0-1 K/uL Nucleated Red Blood Cells 0.0 0.0-0.19 % Erythrocyte Sedimentation Rate 70 H 0-30 MM/HR Sodium Level 139 136-145 mmol/L Potassium Level 4.2 3.5-5.1 mmol/L Chloride Level 105 101-111 mmol/L Carbon Dioxide Level 31 21-32 mmol/L Blood Urea Nitrogen 9 7-18 mg/dL Creatinine 0.7 0.5-1.0 mg/dL Glomerular Filtration Rate Calc 91 >90 mL/min Random Glucose 98 70-105 mg/dL Total Calcium 9.0 8.5-10.1 mg/dL Magnesium Level 1.70 L 1.80-2.40 mg/dL Hemoglobin A1c 5.5 4.0-6.0 % Estimated Average Glucose (eAG) 111 70-126 mg/dL Total Bilirubin 0.3 0.2-1.0 mg/dL Direct Bilirubin 0.1 0.0-0.3 mg/dL Aspartate Amino Transf (AST/SGOT) 22 10-37 U/L Alanine Aminotransferase (ALT/SGPT) 20 12-78 U/L Alkaline Phosphatase 96 50-136 U/L Troponin I High Sensitivity 10 4-50 ng/L B-Type Natriuretic Peptide 61 0-100 pg/mL Total Protein 8.1 6.0-8.3 g/dL Albumin 3.2 L 3.5-5.0 g/dL Thyroid Stimulating Hormone (TSH) 1.74 0.36-3.74 uIU/mL Urine Color LIGHT-YELLOW YELLOW Urine Appearance CLEAR CLEAR Urine pH 7.0 5.0-8.0 Urine Specific [place] 1.025 1.001-1.031 Urine Protein NEGATIVE NEGATIVE mg/dL Urine Glucose (UA) NEGATIVE NEGATIVE mg/dL Urine Ketones NEGATIVE NEGATIVE mg/dL Urine Occult Blood NEGATIVE NEGATIVE Urine Nitrate NEGATIVE NEGATIVE Urine Bilirubin NEGATIVE NEGATIVE mg/dL Urine Urobilinogen 0.2 0.2-1.0 mg/dL Urine Leukocyte Esterase NEGATIVE NEGATIVE [place]/uL Test 04/23/25 16:05 Range/Units Influenza Type A Antigen Negative For Type A NEGATIVE Influenza Type B Antigen Negative For Type B NEGATIVE SARS-CoV-2, RNA, NAAT NEGATIVE SARS CoV-2 NEGATIVE Current Medications Medications (Trade) Dose Ordered Sig/Sunshine Route PRN Reason Start Time Stop Time Status Last Admin Dose Admin Acetaminophen (TYLenol 325MG TAB) 650 mg Q6H PRN PO MILD PAIN (1-3) 04/23/25 18:00 05/23/25 17:59 Ceftriaxone Sodium (ROCEphine 1G INJ) 1 gm Q24H IVPB 04/24/25 15:00 05/04/25 14:59 UNV Enoxaparin Sodium (Lovenox) 30 mg DAILY SQ 04/24/25 09:00 05/24/25 08:59 04/24/25 09:40 30 MG Famotidine (Pepcid 20mg Tab) 20 mg BID PO 04/23/25 21:00 05/23/25 20:59 04/24/25 09:38 20 MG Insulin Human Regular (humuLIN R 100 UNIT/ML 3ML) INSULIN SLIDING SCAL... ACHS SQ 04/23/25 21:00 04/23/25 19:18 DC Labetalol HCl (TRANdate 20MG SYG) 10 mg Q6H PRN IV for SBP> 180 04/23/25 20:00 05/23/25 19:59 Levothyroxine Sodium (SYNTHroid 100MCG TAB) 100 mcg DAILY@0630 PO 04/24/25 06:30 05/24/25 06:29 04/24/25 06:52 100 MCG Losartan Potassium (CozAAR 25MG TAB) 25 mg BID PO 04/23/25 21:00 05/23/25 20:59 04/24/25 09:38 25 MG Magnesium Sulfate 50 ml @ 0 mls/hr PROTOCOL PRN IV OTHER [SEE ORDER COMMENTS] 04/24/25 08:30 04/24/25 08:33 DC Magnesium Sulfate 50 ml @ 0 mls/hr PROTOCOL PRN IV hypomagnesemia 04/24/25 08:30 05/24/25 08:29 04/24/25 09:40 25 MLS/HR Meclizine HCl (ANTIvert 12.5 mg) 12.5 mg TID PRN PO DIZZINESS 04/23/25 19:30 05/23/25 19:29 04/23/25 19:40 12.5 MG Methylprednisolone (methylPREDNISolone) 4 mg ACBKFST PO 04/25/25 07:30 04/24/25 14:45 DC Methylprednisolone (methylPREDNISolone) 4 mg ACBKFST PO 04/27/25 07:30 04/24/25 14:45 DC Methylprednisolone (methylPREDNISolone) 4 mg ACBKFST PO 04/28/25 07:30 8/13/25 14:46 DC Methylprednisolone (methylPREDNISolone) 4 mg ACBKFST PO 04/29/25 07:30 04/24/25 14:46 DC Methylprednisolone (methylPREDNISolone) 4 mg ACDINNER PO 04/25/25 16:30 04/24/25 14:45 DC Methylprednisolone (methylPREDNISolone) 4 mg ACDINNER PO 04/27/25 16:30 04/24/25 14:46 DC Methylprednisolone (methylPREDNISolone) 4 mg ACHS PO 04/26/25 07:30 04/24/25 14:45 DC Methylprednisolone (methylPREDNISolone) 4 mg ACLUNCH PO 04/25/25 11:30 04/24/25 14:45 DC Methylprednisolone (methylPREDNISolone) 4 mg ACLUNCH PO 04/27/25 11:30 04/24/25 14:45 DC Methylprednisolone (methylPREDNISolone) 4 mg BIDLUNCHDINNER PO 04/24/25 12:00 04/24/25 14:45 DC Methylprednisolone (methylPREDNISolone) 4 mg HS PO 04/28/25 21:00 04/24/25 14:46 DC Methylprednisolone (methylPREDNISolone) 8 mg ACBKFST PO 04/24/25 07:30 04/24/25 14:44 DC Methylprednisolone (methylPREDNISolone) 8 mg HS PO 04/24/25 21:00 04/24/25 14:45 DC Methylprednisolone (methylPREDNISolone) 8 mg HS PO 04/25/25 21:00 04/24/25 14:45 DC Ondansetron HCl (zoFRAN 4MG INJ) 4 mg Q6H PRN IVP NAUSEA/VOMITING 04/23/25 18:00 05/23/25 17:59 Oxybutynin Chloride (oxyBUTYnin chloRIDE) 5 mg TID PO 04/23/25 21:00 05/23/25 20:59 04/24/25 09:40 5 MG Pharmacy Profile Note (Pharmacy Communication) 1 each ONCE MISC 04/24/25 15:00 05/01/25 14:59 UNV Tramadol HCl (UltRAM) 50 mg BID PRN PO MODERATE PAIN (4-6) 04/23/25 19:30 04/28/25 19:29 04/24/25 09:39 50 MG DIAGNOSTICS / RADIOLOGY: Echocardiogram ultrasound(04/24/25) LVEF 50-55% CT HEAD/NECK(04/23/25) IMPRESSION: No hemodynamically significant abnormality in the neck arteries. CT head(04/23/25) IMPRESSION: No acute intracranial abnormality is present. Mild generalized brain atrophy and chronic microvascular ischemic white matter disease. Compared to the prior study, there is no significant interval change. Venous Doppler study(04/23/25) IMPRESSION No deep venous thrombosis. Chest x-ray(04/23/25) IMPRESSION No acute cardiopulmonary findings. ASSESSMENT: Dizziness, nausea secondary to post viral vestibular neuritis,POA Hypertensive urgency, POA Cellulitis, left lower extremity,POA Chronic sinusitis History of prior vertigo, POA Recent history of SARs COVID 19 infection, six weeks ago, POA - negative now Anemia, mild, POA Hypomagnesemia Underlying history of hypertension, POA Urinary incontinence POA Hypothyroidism, POA obesity, POA Recent history of fall, POA Obesity, POA PLAN: Dizziness, nausea secondary to post viral vestibular neuritis,,POA * Start Medrol Doz Dayron today * Early ambulation and avoidance of prolonged bedrest to prevent chronic dizziness and deconditioning * Hydration, fall precautions, avoid activities like driving until vertigo results * Head CT is negative, carotid ultrasound is negative. * MRI is ordered to rule out central causes of vertigo, pending for tomorrow * Echo today shows 50-55% LVEF, continuous telemetry did not show abnormal rhythms till now. * Continue telemetry. Hypertensive urgency,POA * Blood pressure improved from 189/75 in the ER to 132/47 today morning. * Continue losartan 25 mg b.i.d * Monitor blood pressure every 4 hourly * Look for warning signs like blurry vision, severe headache, decreased urine output. * Start labetalol 10 mg IV PRN CELLULITIS, left lower extremity,POA * ESR 70 * Start Rocephin 1G IV Q24H * Monitor CBC Hypomagnesemia * Mg - 1.7 * Start magnesium replacement protocol. Urinary incontinence, POA * Continue oxybutynin 5mg TID PO DVT Prophylaxis : Lovenox 30mg SQ Daily GI Prophylaxis : Famotidine 20mg BID PO ATTESTATION BY PHYSICIAN I have seen and examined the patient. I reviewed the documentation, medical decision making, and treatment plan as noted by the resident provider above. I agree with the findings and plan of care. Bal Winston MD, BHAVANI MD Apr 24, 2025 14:48 DORA JARA MD Apr 24, 2025 20:55
[2025-04-24] MEDS ORDERED: PHARMACY COMMUNICATION MISC SCH (15:00)
[2025-04-24 15:03] LABS: % IRON SATURATION 21.5 % (22-44); IRON, SERUM 63.0 mcg/dL (50-170)
[2025-04-24] MEDS: MEDROL DAY 1 LUNCH AND DINNER PO NR (16:04)
--- NOTE | 2025-04-24 16:55 | HMCSR ---
APPROVED REPORT EXAM: Two-dimensional and M-mode echocardiogram with Doppler and color Doppler. INDICATION ICD: assess for heart failure 2D Dimensions RVDd3.5 cmLVEF(%)76.5 (>50%)LVED Vol(simp.)83.0 mL IVSd0.8 (0.7-1.1cm)FS(%)45 %LVES Vol(simp.)41.0 mL LVDd4.5 (3.8-5.6cm)LA (2D)3.5 (1.6-4.0cm)LVEF(%, simp.)51 % PWd1.0 (0.7-1.1cm)Ao Root(2D)2.4 (2.0-3.7cm)LA ESV INDEX (BP)31.53 mL/m2 LVDs2.5 (2.5-4.0cm)LVOT diam2.0 (1.8-2.4cm) IVC diam1.8 cm Deformation Strain Apical 4-16.3 % Apical 2-17.7 % Apical 3-14.1 % Global Strain-16.0 % M-Mode Dimensions EPSS0.6 cm LA (MM)3.9 (1.6-4.0cm) Ao Root(MM)2.7 (2.0-3.7cm) Aortic Valve AoV Vmax1.4 m/Dalia Peak GR7.8 mmHgLVOT Vmax1.1 m/s AoV VTI0.3 mAo Mean GR4.0 mmHgLVOT VTI0.26 m FRANCISCO JAVIER (VMAX)2.39 cm2AVA (VTI) 2.7 cm2 Mitral Valve MV E Vmax99.0 cm/sDECEL Roje220 ms MV A Vmax94.4 cm/sP 1/2 T59 ms E/A ratio1.0MVA (PHT)3.7 cm2 TDI E/E' Sricrn08.9E/E' Lateral9.9 Medial E' Peak V9.08 cm/sLateral E' Peak V10.02 cm/s Pulmonary Valve PV Vmax1.1 m/sPV VTI0.24 mPV Mean GR2.7 mmHg PV Peak GR4.6 mmHg Tricuspid Valve TR Vmax2.5 m/sRVSP23.2 mmHg TR Peak GR27.7 mmHg Left Ventricle The left ventricle is normal size. There is normal left ventricular wall thickness. LVEF is 50-55%. T he left ventricular diastolic function is normal. Right Ventricle The right ventricle is normal size. The right ventricular systolic function is normal. Atria The left atrium size is normal. The right atrium size is normal. Aortic Valve The aortic valve is normal in structure. No aortic regurgitation is present. There is no aortic valvu lar stenosis. Mitral Valve The mitral valve is normal in structure. Mitral regurgitation is trace. There is no mitral valve sten osis. Tricuspid Valve The tricuspid valve is normal in structure. There is trivial tricuspid valve regurgitation noted. Pulmonic Valve The pulmonary valve is normal in structure. There is no pulmonic valvular regurgitation. Great Vessels The aortic root is normal in size. The IVC is normal in size and collapses >50% with inspiration. Pericardium There is no pericardial effusion. Conclusion The left ventricle is normal size. LVEF is 50-55%. The left ventricular diastolic function is normal. The right ventricle is normal size. The right ventricular systolic function is normal. The left atrium size is normal. The right atrium size is normal. No valvular pathology. There is no pericardial effusion.
[2025-04-24] MEDS: 0.9% NACL 500ML IV.SOLN 500 ML IV STA (17:15)
--- NOTE | 2025-04-24 17:37 | CONS ---
CONSULT NOTE: [facility] Note # Demographics Consult Type: General Neurology Patient Location: Inpatient First Name: Lindsey Last Name: Edin Date of : 1950 Age: 74 Gender: Female Facility: [facility] Time of Initial Page (Central Time): 04/24/2025 16:14 First Contact with Site (Central Time): 04/24/2025 16:15 # HPI Chief Complaint: - dizziness History: 74 y/o woman with vertigo and abnormal movements. Symptoms started yesterday when she came for x-rays--tech helped her sit up and then everything started spinning. Symptoms have improved significantly but not resolved. No similar symptoms previously other when she had vertigo with COVID. Today has a headache. Yesterday did have tingling in the left arm. # Scores Time of exam and NIHSS (Central Time): 04/24/2025 16:22 Level of Consciousness 1a: [0] = Alert; keenly responsive LOC Questions 1b: [0] = Answers both questions correctly LOC Commands 1c: [0] = Performs both tasks correctly Best Gaze 2: [0] = Normal Visual 3: [0] = No visual loss Facial Palsy 4: [0] = Normal symmetrical movements Motor Arm Left 5a: [0] = No drift Motor Arm Right 5b: [0] = No drift Motor Leg Left 6a: [0] = No drift Motor Leg Right 6b: [0] = No drift Limb Ataxia 7: [0] = Absent Sensory 8: [0] = Normal Best Language 9: [0] = No aphasia Dysarthria 10: [0] = Normal Extinction and Inattention 11: [0] = No abnormality NIHSS Total: 0 # Data Other Labs: ESR 70 Hgb A1c 5.5 CTA Head: - no large vessel occlusion - per radiologist read CTA Neck: - patent vessels - per radiologist read Other Imaging: ECHO with EF 50-55% # Assessment Impression: - Vertigo Favor BPPV with the movement-induced symptoms, though mild stroke possible # Plan Labs: - lipid panel Imaging: (urgency: routine): MRI brain pending Therapy/Evaluation: - PT/OT evaluation Medication: - aspirin 81 mg daily - start statin with goal of LDL < 70 Other: - If patient has any neurological deterioration please call me back immediately - will need event monitor or loop recorder as outpatient if atrial fibrillation not found as inpatient - telemetry monitoring - LDL < 70 # Logistics Attestation of consult completion: The patient is located at: [facility]. Facility staff participated in the visit. I performed this telemedicine visit from my offsite office utilizing interactive 2 way audio and visual telecommunication technology at the request of the onsite inpatient provider. Total time spent in telemedicine encounter: I spent 20 minutes reviewing clinical data and/or imaging, obtaining history, examining the patient, communicating with the onsite care team, and in preparation of this report. # Demographics First Name: Lindsey Last Name: Edin Facility: [facility] AL COLBERT MD Apr 24, 2025 17:37
--- NOTE | 2025-04-24 17:44 | HMCIMG ---
EXAM: MR Brain without Intravenous Contrast. CLINICAL HISTORY: Rule out acute CVA. TECHNIQUE: Magnetic resonance images of the brain without intravenous contrast in multiple planes. CONTRAST: None. COMPARISON: None provided. FINDINGS: BRAIN: No restricted diffusion to indicate acute infarction. No intracranial mass or hemorrhage. No midline shift or extra-axial fluid collection. No cerebellar tonsillar ectopia. No abnormal enhancement. The central arterial and venous flow voids are patent. Mild atrophy. VENTRICLES: No hydrocephalus. ORBITS: The orbits are normal. SINUSES AND MASTOIDS: The sinuses and mastoid air cells are clear. BONES: No acute fracture or focal osseous lesion. IMPRESSION: 1. No evidence of acute CVA or other acute abnormality. 2. Mild atrophy. /[place]
[2025-04-24] MEDS: MEDROL DAY1 HS PO NR (20:53)
[2025-04-24] MEDS ORDERED: MEDROL DAY1 HS PO NR (21:00)
[2025-04-25] VITALS (8 sets, daily range): BP systolic 132–164; BP diastolic 53–98; PULSE 72–87; RESP 16–18; TEMP 97.7–98.7; O2SAT 96–97
[2025-04-25 05:56] LABS: NUCLEATED RED BLOOD CELLS 0.0 % (0.0-0.19); PLATELET COUNT (AUTO) 222.0 K/uL (130-400); RED BLOOD CELL COUNT(AUTO) 3.84 MIL/uL (4.00-5.50); RED CELL DISTRIBUTION WIDTH 14.1 % (11.0-15.5); WHITE BLOOD COUNT (AUTO) 7.5 K/uL (4.8-10.8)
[2025-04-25 06:16] LABS: CREATININE 0.7 mg/dL (0.5-1.0); GLOMERULAR FILTR. RATE CALC 91.0 mL/min (>90); GLUCOSE,RANDOM 143.0 mg/dL (70-105); LDL DIRECT 105.0 mg/dL (0-99); SODIUM SERUM 140.0 mmol/L (136-145)
[2025-04-25] MEDS: MEDROL DAY 2 BRK PO NR (06:45)
[2025-04-25 07:26] LABS: UREA NITROGEN, BLOOD 13.0 mg/dL (7-18)
[2025-04-25] MEDS ORDERED: MEDROL DAY 2 BRK PO NR (07:30)
[2025-04-25] MEDS ORDERED: MEDROL DAY 2 LCH PO NR (11:30)
[2025-04-25] MEDS ORDERED: VANCOMYCIN PROTOCOL PER PHARMACY IV SCH (12:00)
[2025-04-25] MEDS ORDERED: PHARMACY COMMUNICATION MISC SCH (12:00)
[2025-04-25] MEDS: MEDROL DAY 2 LCH PO NR (12:24)
[2025-04-25] MEDS: VANCOMYCIN 2GM/500 ML BAG 500 ML IV ONE (12:25)
--- NOTE | 2025-04-25 15:25 | HMCIMG ---
US ARTERIAL BILAT LOW EXT DUPL HISTORY: TENDERNESS, CELLULITIS TECHNIQUE: Real-time arterial doppler ultrasound of the lower extremity was performed. FINDINGS: RIGHT: Normal triphasic and biphasic waveforms seen in the evaluated arteries. Peak systolic velocities: CLINICAL ESTHETICIAN 189 cm/s. Proximal SFA 182 cm/s. Mid SFA 134cm/s Distal SFA 150 cm/s. Proximal popliteal 80 cm/s. Distal popliteal 83 cm/s. DIRECTOR OF HOUSING AND ENERGY SERVICES 100 cm/s. NANCY 79 cm/s. DPA 37 cm/s. LEFT: Normal triphasic and biphasic waveforms seen in the evaluated arteries. Peak systolic velocities: CLINICAL ESTHETICIAN 152 cm/s. Proximal SFA 151 cm/s. Mid SFA 165cm/s Distal SFA 184 cm/s. Proximal popliteal cm/s. Distal popliteal 118 cm/s. DIRECTOR OF HOUSING AND ENERGY SERVICES 103 cm/s. NANCY 104 cm/s. DPA 32 cm/s. IMPRESSION: No evidence of flow-limiting stenosis by velocity criteria.
[2025-04-25] MEDS ORDERED: MEDROL DAY 2 DIN PO NR (16:30)
[2025-04-25] MEDS ORDERED: IOHEXOL 350 MG/ML 100ML INFUS..BTL IV ONE (16:45)
[2025-04-25] MEDS: MEDROL DAY 2 DIN PO NR (17:26)
--- NOTE | 2025-04-25 17:34 | PN ---
[facility] PROGRESS NOTE Date of Service: Apr 25, 2025 Time of Service: 17:07 SUBJECTIVE: Mrs. Galindo is a 74-year-old female with underlying history of hypertension, obesity, prior history of vertigo, recent history of COVID 19 infection six weeks ago, chronic pain, urinary incontinence the ER for further evaluation of vertiginous symptoms. Today I examined the patient at bedside. She reports headache and backache since yesterday. 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 She reports improvement in dizziness from yesterday after taking meclizine in the ER. Head impulse test is negative for nystagmus and the gait is normal. She is put on continuous telemetry for arrhythmias put recorded none of them till now. She has mild tenderness in the sinuses and slight puffiness around the eyes. She has chronic dryness in the foot for which she uses ammonium lactate. On examination it is warm, red, slightly swollen and blisters. She has a history of COVID 6 weeks back and had a similar episode of vertigo then. We are suspecting post viral labyrinthitis that is causing the present vertigo symptoms so we plan to treat her with medrol madie young. Her blood pressure declined today to 132/49 as compared to 189/75 on arrival in the ER. She is on her home medication losartan 25 mg BID PO. Labs show magnesium of 1.7. Her MRI is scheduled this evening. Her orthostats show BP 146/62 HR 86 lying down BP 150/75 HR 91 Sitting BP 131/97 HR 88 Standing up. 04/25/25: The patient is examined at the bedside. She is alert oriented and hemodynamically stable. She reported low-grade fever yesterday night but resolved today. She had an episode of vertigo for 2 minutes early in the morning today. Yesterday we administered 500 mL of NS bolus. Her orthostatics tested positive after the bolus with standing BP 153/63,HR 101 Laying BP 146/61 HR 103 Sitting 155/75 HR 104. The swelling of the legs and redness decreased from yesterday but reports pain in the calf. So we ordered CT left leg without contrast, U/S arterial B/L Lower legs. She is started on vancomycin 1g today. REVIEW OF SYSTEMS CONSTITUTIONAL: Denies fevers, chills, or night sweats. No unintentional maribell ght loss reported. NEUROLOGICAL: acute onset of vertigo close to 4:00 Am Today ENT: Slight facial pain, No hearing loss, otalgia, otorrhea, rhinitis, rhinorrhea, hoarseness, or sore throat, no tinnitus . CARDIOVASCULAR: Denies any exertional angina, dyspnea on exertion, orthopnea, paroxysmal nocturnal dyspnea, palpitations, life-threatening arrhythmias, claudication. PULMONARY: Denies any shortness of breath, cough, phlegm/sputum, hemoptysis, pleuritic chest pain. SLEEP: Denies morning headaches, daytime somnolence or napping. Denies difficulty falling asleep, staying asleep, waking from sleep. Denies knowledge of snoring. GASTROINTESTINAL: Denies any type of dysphagia to either liquids or solids. Denies nausea, vomiting, pyrosis, early satiety, abdominal pain, diarrhea, constipation, or changes in stool consistency or caliber. Denies coffee-ground emesis, hematemesis, hematochezia, or melanotic stools. GENITOURINARY: Urinary incontinence present. Denies frequency, urgency, nocturia, hematuria, Low urinary stream, straining to void, urinary intermittency or hesitancy, splitting of the voiding stream, terminal dribbling. ENDOCRINOLOGIC: Denies polyuria, polydipsia, polyphagia or heat/cold intolerances. HEMATOLOGIC: Denies thrombophilia/previous clots, or coagulopathy/bleeding disorders. ONCOLOGIC: Denies personal history of malignancy. DERMATOLOGIC: stasis dermatitis, erythema on gilbert, hyperpigmentation on dorsal surface of left foot , few blisters on multiple parts of the leg PSYCHIATRIC: Denies any suicidal or homicidal ideation. Denies hallucinations. PHYSICAL EXAM GENERAL APPEARANCE: The patient is awake, alert, and oriented, in no acute cardiopulmonary distress. NEUROLOGICAL: Cranial nerves II-XII grossly intact. Moving Bilateral upper and lower extremities with no significant weakness HEENT: Face is symmetric. Pupils are equal and reactive. Extraocular movements are intact.tender maxillary and frontal sinuses , erythematous posterior oropharynx NECK: Supple. No JVD. No thyromegaly. No submental, submandibular, pre-/postauricular, occipital or supraclavicular lymphadenopathy. CHEST: Normal chest expansion. No Telemetry. LUNGS: Absence of any rales, rhonchi or any wheezing. CARDIOVASCULAR: Regular. S1 and S2 normal. No appreciable rubs, murmurs or gallops. ABDOMEN: Soft, nontender, and nondistended. There is no rebound, voluntary guarding, or rigidity. : Deferred. No Hough. EXTREMITIES: Warm, tender, 1+ non -pitting edema bilateral lower, excoriation valdes and hyperpigmentation on the left foot, multiple blisters on various parts of the foot. Vital Signs (last 8hr) Date Time Temp Pulse Resp B/P (MAP) Pulse Ox O2 Delivery O2 Flow Rate FiO2 04/25/25 16:00 98.1 87 17 152/98 97 Room Air 04/25/25 12:00 98.2 80 18 164/79 94 Room Air LABS: Laboratory: Test 04/25/25 15:41 04/25/25 05:49 04/24/25 04:32 Range/Units Whole Blood Glucose 137 H 70-110 MG/DL White Blood Count 7.5 4.8-10.8 K/uL Red Blood Count 3.84 L 4.00-5.50 MIL/uL Hemoglobin 11.0 L 12.0-16.0 g/dL Hematocrit 34.3 L 36-48 % Mean Corpuscular Volume 89.3 79-99 fL Mean Corpuscular Hemoglobin 28.6 27.0-33.0 pg Mean Corpuscular Hemoglobin Concent 32.1 32.0-36.0 g/dL Red Cell Distribution Width 14.1 11.0-15.5 % Platelet Count 222 130-400 K/uL Mean Platelet Volume 8.0 7.5-10.5 fL Nucleated Red Blood Cells 0.0 0.0-0.19 % Sodium Level 140 136-145 mmol/L Potassium Level 4.2 3.5-5.1 mmol/L Chloride Level 104 101-111 mmol/L Carbon Dioxide Level 29 21-32 mmol/L Blood Urea Nitrogen 13 7-18 mg/dL Creatinine 0.7 0.5-1.0 mg/dL Glomerular Filtration Rate Calc 91 >90 mL/min Random Glucose 143 H 70-105 mg/dL Total Calcium 9.4 8.5-10.1 mg/dL Magnesium Level 1.90 1.80-2.40 mg/dL C-Reactive Protein, Quantitative 27.10 H 0.5-3.0 mg/L B-Type Natriuretic Peptide 155 H 0-100 pg/mL Triglycerides Level 65 30-200 mg/dL Cholesterol Level 215 H <200 mg/dL LDL Cholesterol 105 H 0-99 mg/dL HDL Cholesterol 88 H 35-85 mg/dL Immature Granulocyte % (Auto) 0.4 0-1 % Neutrophils (%) (Auto) 72.3 40.0-77.0 % Lymphocytes (%) (Auto) 19.0 L 21.0-51.0 % Monocytes (%) (Auto) 6.3 3.0-13.0 % Eosinophils (%) (Auto) 1.7 0.0-8.0 % Basophils (%) (Auto) 0.3 0.0-5.0 % Neutrophils # (Auto) 5.1 1.8-7.7 K/uL Lymphocytes # (Auto) 1.4 1.0-4.8 K/uL Monocytes # (Auto) 0.5 0.1-1.0 K/uL Eosinophils # (Auto) 0.12 0.00-0.70 K/uL Basophils # (Auto) 0.02 0.00-0.20 K/uL Absolute Immature Granulocyte (auto 0.03 0-1 K/uL Erythrocyte Sedimentation Rate 70 H 0-30 MM/HR Iron Level 63 50-170 mcg/dL Total Iron Binding Capacity 292 250-450 mcg/dL Percent Iron Saturation 21.5 L 22-44 % Current Medications Medications (Trade) Dose Ordered Sig/Sunshine Route PRN Reason Start Time Stop Time Status Last Admin Dose Admin Acetaminophen (TYLenol 325MG TAB) 650 mg Q6H PRN PO MILD PAIN (1-3) 04/23/25 18:00 05/23/25 17:59 04/24/25 20:52 650 MG Ceftriaxone Sodium (ROCEphine 1G INJ) 1 gm Q24H IVPB 04/24/25 15:00 05/04/25 14:59 04/24/25 15:00 1 GM Enoxaparin Sodium (Lovenox) 30 mg DAILY SQ 04/24/25 09:00 05/24/25 08:59 04/25/25 08:19 30 MG Famotidine (Pepcid 20mg Tab) 20 mg BID PO 04/23/25 21:00 05/23/25 20:59 04/25/25 08:18 20 MG Insulin Human Regular (humuLIN R 100 UNIT/ML 3ML) INSULIN SLIDING SCAL... ACHS SQ 04/23/25 21:00 04/23/25 19:18 DC Labetalol HCl (TRANdate 20MG SYG) 10 mg Q6H PRN IV for SBP> 180 04/23/25 20:00 05/23/25 19:59 Levothyroxine Sodium (SYNTHroid 100MCG TAB) 100 mcg DAILY@0630 PO 04/24/25 06:30 05/24/25 06:29 04/25/25 06:32 100 MCG Losartan Potassium (CozAAR 25MG TAB) 25 mg BID PO 04/23/25 21:00 05/23/25 20:59 04/25/25 08:19 25 MG Magnesium Sulfate 50 ml @ 0 mls/hr PROTOCOL PRN IV OTHER [SEE ORDER COMMENTS] 04/24/25 08:30 04/24/25 08:33 DC Magnesium Sulfate 50 ml @ 0 mls/hr PROTOCOL PRN IV hypomagnesemia 04/24/25 08:30 05/24/25 08:29 04/24/25 09:40 25 MLS/HR Meclizine HCl (ANTIvert 12.5 mg) 12.5 mg TID PRN PO DIZZINESS 04/23/25 19:30 05/23/25 19:29 04/23/25 19:40 12.5 MG Methylprednisolone (methylPREDNISolone) 4 mg ACBKFST PO 04/25/25 07:30 04/24/25 14:45 DC Methylprednisolone (methylPREDNISolone) 4 mg ACBKFST PO 04/25/25 07:30 04/25/25 23:59 04/25/25 06:45 4 MG Methylprednisolone (methylPREDNISolone) 4 mg ACBKFST PO 04/27/25 07:30 04/24/25 14:45 DC Methylprednisolone (methylPREDNISolone) 4 mg ACBKFST PO 04/27/25 07:30 04/27/25 23:59 Methylprednisolone (methylPREDNISolone) 4 mg ACBKFST PO 04/28/25 07:30 04/24/25 14:46 DC Methylprednisolone (methylPREDNISolone) 4 mg ACBKFST PO 04/28/25 07:30 04/28/25 23:59 Methylprednisolone (methylPREDNISolone) 4 mg ACBKFST PO 04/29/25 07:30 04/24/25 14:46 DC Methylprednisolone (methylPREDNISolone) 4 mg ACBKFST PO 04/29/25 07:30 04/29/25 23:59 Methylprednisolone (methylPREDNISolone) 4 mg ACDINNER PO 04/25/25 16:30 04/24/25 14:45 DC Methylprednisolone (methylPREDNISolone) 4 mg ACDINNER PO 04/25/25 16:30 04/25/25 23:59 Methylprednisolone (methylPREDNISolone) 4 mg ACDINNER PO 04/27/25 16:30 04/24/25 14:46 DC Methylprednisolone (methylPREDNISolone) 4 mg ACDINNER PO 04/27/25 16:30 04/27/25 23:59 Methylprednisolone (methylPREDNISolone) 4 mg ACHS PO 04/26/25 07:30 04/24/25 14:45 DC Methylprednisolone (methylPREDNISolone) 4 mg ACHS PO 04/26/25 07:30 04/26/25 23:59 Methylprednisolone (methylPREDNISolone) 4 mg ACLUNCH PO 04/25/25 11:30 04/24/25 14:45 DC Methylprednisolone (methylPREDNISolone) 4 mg ACLUNCH PO 04/25/25 11:30 04/25/25 23:59 04/25/25 12:24 4 MG Methylprednisolone (methylPREDNISolone) 4 mg ACLUNCH PO 04/27/25 11:30 04/24/25 14:45 DC Methylprednisolone (methylPREDNISolone) 4 mg ACLUNCH PO 04/27/25 11:30 04/27/25 23:59 Methylprednisolone (methylPREDNISolone) 4 mg BIDLUNCHDINNER PO 04/24/25 12:00 04/24/25 14:45 DC Methylprednisolone (methylPREDNISolone) 4 mg HS PO 04/28/25 21:00 04/24/25 14:46 DC Methylprednisolone (methylPREDNISolone) 4 mg HS PO 04/28/25 21:00 04/28/25 23:59 Methylprednisolone (methylPREDNISolone) 8 mg ACBKFST PO 04/24/25 07:30 04/24/25 14:44 DC Methylprednisolone (methylPREDNISolone) 8 mg BIDLUNCHDINNER PO 04/24/25 12:00 04/24/25 14:55 DC Methylprednisolone (methylPREDNISolone) 8 mg BIDLUNCHDINNER PO 04/24/25 15:00 04/24/25 22:00 DC 04/24/25 17:15 8 MG Methylprednisolone (methylPREDNISolone) 8 mg HS PO 04/24/25 21:00 04/24/25 14:45 DC Methylprednisolone (methylPREDNISolone) 8 mg HS PO 04/24/25 21:00 04/24/25 23:59 DC 04/24/25 20:53 8 MG Methylprednisolone (methylPREDNISolone) 8 mg HS PO 04/25/25 21:00 04/24/25 14:45 DC Methylprednisolone (methylPREDNISolone) 8 mg HS PO 04/25/25 21:00 04/25/25 23:59 Ondansetron HCl (zoFRAN 4MG INJ) 4 mg Q6H PRN IVP NAUSEA/VOMITING 04/23/25 18:00 05/23/25 17:59 Oxybutynin Chloride (oxyBUTYnin chloRIDE) 5 mg TID PO 04/23/25 21:00 05/23/25 20:59 04/25/25 08:19 5 MG Pharmacy Profile Note (Pharmacy Communication) 1 each ONCE MISC 04/24/25 15:00 04/24/25 14:58 DC Pharmacy Profile Note (Pharmacy Communication) 1 each ONCE MISC 04/25/25 12:00 04/25/25 11:51 DC Sodium Chloride 500 ml @ 0 mls/hr Q0M STAT IV 04/24/25 15:24 04/24/25 15:39 DC 04/24/25 17:15 0 MLS/HR Tramadol HCl (UltRAM) 50 mg BID PRN PO MODERATE PAIN (4-6) 04/23/25 19:30 04/28/25 19:29 04/25/25 08:18 50 MG Vancomycin HCl 250 ml @ 125 mls/hr Q12H IV 04/26/25 03:00 05/06/25 02:59 Vancomycin HCl (Vancomycin Protocol) 1 each AD IV 04/25/25 12:00 05/09/25 11:59 DIAGNOSTICS / RADIOLOGY: ARTERIAL US(04/25/25) IMPRESSION: No evidence of flow-limiting stenosis by velocity criteria. CT LOWER EXTREMITY LEFT LEG(04/25/25) Pending report ASSESSMENT: Dizziness, nausea secondary to post viral vestibular neuritis,POA Hypertensive urgency, POA Cellulitis, left lower extremity,POA Chronic sinusitis History of prior vertigo, POA Recent history of SARs COVID 19 infection, six weeks ago, POA - negative now Anemia, mild, POA Hypomagnesemia Underlying history of hypertension, POA Urinary incontinence POA Hypothyroidism, POA obesity, POA Recent history of fall, POA Obesity, POA PLAN: Dizziness, nausea secondary to post viral vestibular neuritis,,POA * Continue Medrol Doz Dayron today * Early ambulation and avoidance of prolonged bedrest to prevent chronic dizziness and deconditioning * Hydration, fall precautions, avoid activities like driving until vertigo results * Head CT is negative, carotid ultrasound is negative. * MRI is negative * Echo today shows 50-55% LVEF, continuous telemetry did not show abnormal rhythms till now. stop telemetry today * Continue telemetry. Hypertensive urgency,POA * Blood pressure 152/98 today morning. * Continue losartan 25 mg b.i.d * Monitor blood pressure every 4 hourly * Look for warning signs like blurry vision, severe headache, decreased urine output. * Start labetalol 10 mg IV PRN CELLULITIS, left lower extremity,POA * ESR 70 * Start Vancomycin 2g IV once * Start Vancomycin 1g IV BD * Continue Rocephin 1G IV Q24H * Order Arterial US to rule out Arterial insufficiency today * order CT LFT Lower Limb w/o contrast to rule out osteomyelitis today * Monitor CBC * ESR 70 * CRP 27.10 Hypomagnesemia * Mg - 1.9 * Start magnesium replacement protocol If <1.8 Urinary incontinence, POA * Continue oxybutynin 5mg TID PO DVT Prophylaxis : Lovenox 30mg SQ Daily GI Prophylaxis : Famotidine 20mg BID PO ATTESTATION BY PHYSICIAN I have seen and examined the patient. I reviewed the documentation, medical decision making, and treatment plan as noted by the resident provider above. I agree with the findings and plan of care. Bal Winston MD, BHAVANI MD Apr 25, 2025 17:34
[2025-04-25] MEDS: MEDROL DAY 2 HS PO NR (19:46)
[2025-04-25] MEDS ORDERED: MEDROL DAY 2 HS PO NR (21:00)
[2025-04-26] MEDS: VANCOMYCIN 1G/250ML KIT 250 ML IV SCH (02:54)
[2025-04-26 04:00] VITALS: BP 154/69; PULSE 79; RESP 18; TEMP 98
[2025-04-26 04:19] LABS: NUCLEATED RED BLOOD CELLS 0.0 % (0.0-0.19); PLATELET COUNT (AUTO) 222.0 K/uL (130-400); RED BLOOD CELL COUNT(AUTO) 3.45 MIL/uL (4.00-5.50); RED CELL DISTRIBUTION WIDTH 14.1 % (11.0-15.5); WHITE BLOOD COUNT (AUTO) 11.2 K/uL (4.8-10.8)
[2025-04-26 04:34] LABS: CREATININE 0.7 mg/dL (0.5-1.0); GLOMERULAR FILTR. RATE CALC 91.0 mL/min (>90); GLUCOSE,RANDOM 133.0 mg/dL (70-105); SODIUM SERUM 139.0 mmol/L (136-145); UREA NITROGEN, BLOOD 13.0 mg/dL (7-18)
[2025-04-26] MEDS: MEDROL DAY 3 PO NR (06:07)
[2025-04-26] MEDS ORDERED: MEDROL DAY 3 PO NR (07:30)
[2025-04-26 08:00] VITALS: BP 166/90; PULSE 98; RESP 17; TEMP 98.2
[2025-04-26 08:36] VITALS: O2SAT 96
--- NOTE | 2025-04-26 11:26 | HMCIMG ---
EXAM: CT left leg, without and with IV contrast. CLINICAL HISTORY: To rule out abscess and cellulitis. TECHNIQUE: Axial computed tomography images of the left leg without intravenous contrast. CONTRAST: Without and with contrast. COMPARISON: None provided. FINDINGS: BONES: No acute fracture is evident. No aggressive appearing osseous lesion. No periosteal reaction evident. JOINTS: Small calcaneocuboid calcaneal sided osteophyte. The joint spaces appear within normal limits. No dislocation. SOFT TISSUES: Diffuse leg and ankle periarticular subcutaneous edema and skin thickening . No discrete drainable collection is seen. IMPRESSION: 1. No drainable fluid collection. 2. Diffuse subcutaneous edema and skin thickening of the left leg and ankle. This is consistent with cellulitis. 3. No definite evidence of osteomyelitis. /[place]
[2025-04-26] MEDS ORDERED: MECL-226 PO (14:45)
[2025-04-26] MEDS ORDERED: AMOX-426 PO ×2 (14:45→15:05)
[2025-04-26] MEDS ORDERED: METH4TAB3 PO (14:45)
--- NOTE | 2025-04-26 15:07 | DS ---
Discharge Summary Hospital Course Summary: Ms. Portillo is a 74-year-old female with PMH of hypertension, obesity, prior history of vertigo, recent history of COVID 19 infection six weeks ago, chronic pain, urinary incontinence the ER for further evaluation of vertiginous symptoms. She is followed by Dr. Rincon prototype special build as outpatient. On presentation to the hospital, patient was noted to be hypertensive with blood pressure ranging between 129-197/60s-70s. On examination her legs were warm tender and swollen confirming cellulitis. So she is admitted to the hospital for IV antibiotics and vertigo workup. Upon hospitalization, she was treated with IV Rocephin and IV Vancomycin for cellulitis and chronic sinusitis . The continuous telemetry showed no arrhythmias. Head CT, head/neck CT, brain MRI were negative ruling out central causes of vertigo including posterior circulation stroke . Venous Doppler study showed no DVT, arterial ultrasound was negative, lower extremity CT confirmed cellulitis and ruled out osteomyelitis. Echo showed 50-55% LVEF. 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 The patient is clinically and hemodynamically stable by the time of discharge . She is put on Augmentin 625 mg PO BID for 14 days, meclizine 12.5 mg BD PRN and Medrol Dos hector. She is advised to follow up with her primary care physician within 3 days for managing her cellulitis, hypertension and vertigo. The patient was educated on recognizing red flag symptoms and instructed to seek emergency care immediately if they occur. General discharge instructions were also provided at the time of discharge Counter Attendant(s): Dr Kaylah Ware MD Cardiology [place] [id number] [address] [facility] Cardiology Consultation Note Cardiology consult dictated for Kayalh Ware MD Date of service 04/24/2025 Primary prototype special build: Dr. Rincon Reason for consult: Hypertensive crisis Chief complaint: Severe dizziness and vertigo-like symptoms History of present illness: This is a 74-year-old female seen by Dr Rincon in 2022 for evaluation of palpitations. Presented for evaluation of severe vertigo- like symptoms. Patient apparently fell approximately five days ago and primary physician was evaluating with x-rays of the upper and lower extremities. While she was having procedures or testing done she changed position and had onset of severe vertigo type symptoms. She had COVID 19 infection about six weeks ago and had episodes of vertigo at that time. Twelve lead EKG was performed on arrival with no acute findings. Her blood pressure was on the high side 197 ove r 70s. Cardiology consult was requested for evaluation of hypertensive crisis. Review of systems: 14 point review of systems performed pertinent positives and negatives discussed in HPI Past medical history: Positive for hypertension, dyslipidemia, hypothyroidism, asthma. Negative for CVA TIA no PE no DVT no liver kidney disease Past surgical history: Oophorectomy, hysterectomy, right eye surgery and sinus surgery Past social history: Patient denies tobacco alcohol or illicit drug use Family history: Noncontributory Allergies: Patient is allergic to Thimerosal Review of blood work: CBC hemoglobin of 10.2 hematocrit 31.3, white blood cells of 7.1 and platelets of 225. BNP on admission 61 TSH of 1.74. Basic metabolic panel with a sodium of 139, potassium 4.2, BUN of nine creatinine of 0.1 Seven and a GFR of 91 with a magnesium of 1.70. Current medications: Lovenox 30 mg daily subQ, levothyroxine daily, [id number] mg p.o. b.i.d., meclizine PRN Physical exam: Blood pressure this morning 132/47 heart rate of 77 beats per minute and regular normal S1-S2 no rubs gallops murmurs noted. Neck is supple no jugular vein distention no carotid bruits. Bilateral breath sounds are clear to auscultation. Lower extremities with trace edema. Patient is alert awake and oriented. All others within normal limits. Scan of the head showed mild atrophy but no acute pathology Venous Dopplers of the lower extremities showed no evidence of deep vein thrombosis Assessment: Vertigo Hypertensive crisis Hypertension Dyslipidemia Asthma Plan: At this point we have a 74-year-old female was evaluated by Dr. Rincon in the past for palpitations. presented for evaluation of sudden onset of vertigo. She has contracted COVID three different times and every time one of her symptoms is severe vertigo. She was COVID positive six weeks ago. Blood pressure on admission systolic was 190 but this morning has a blood pressure of 132/47. Patient denies chest pain shortness of breath dizziness syncope or palpitations. Currently patient is up in the room ambulating without problem on telemetry SR 80-90bpm. She is pending 2D echocardiogram that was ordered yesterday on admission. We will observe blood pressure on [id number] b.i.d.. Further recommendations once results are available for review. \ATTESTATION BY PHYSICIAN I have seen and examined the patient. I reviewed the documentation, medical decision making, and treatment plan as noted by the mid-level provider above. I agree with the findings and plan of care. KAYLAH WARE MD, MARTINA CLAIMS ADMINISTRATOR Apr 24, 2025 08:28 KAYLAH WARE MD Apr 24, 2025 10:44 Electronically Signed by: GERMAIN CASTAÑEDA04/24/25 0828 Electronically Co-Signed by: KAYLAH WARE MD04/24/[address] Brody Colbert MD [facility] [address] [address] CONSULT NOTE: [place] Neuro Note # Demographics Consult Type: General Neurology Patient Location: Inpatient First Name: Ovidio Last Name: Edin Date of : 1950 Age: 74 Gender: Female Facility: [facility] Time of Initial Page (Central Time): 04/24/2025 16:14 First Contact with Site (Central Time): 04/24/2025 16:15 # HPI Chief Complaint: - dizziness History: 74 y/o woman with vertigo and abnormal movements. Symptoms started yesterday when she came for x-rays--tech helped her sit up and then everything started spinning. Symptoms have improved significantly but not resolved. No similar symptoms previously other when she had vertigo with COVID. Today has a headache. Yesterday did have tingling in the left arm. # Scores Time of exam and NIHSS (Central Time): 04/24/2025 16:22 Level of Consciousness 1a: [0] = Alert; keenly responsive LOC Questions 1b: [0] = Answers both questions correctly LOC Commands 1c: [0] = Performs both tasks correctly Best Gaze 2: [0] = Normal Visual 3: [0] = No visual loss Facial Palsy 4: [0] = Normal symmetrical movements Motor Arm Left 5a: [0] = No drift Motor Arm Right 5b: [0] = No drift Motor Leg Left 6a: [0] = No drift Motor Leg Right 6b: [0] = No drift Limb Ataxia 7: [0] = Absent Sensory 8: [0] = Normal Best Language 9: [0] = No aphasia Dysarthria 10: [0] = Normal Extinction and Inattention 11: [0] = No abnormality NIHSS Total: 0 # Data Other Labs: ESR 70 Hgb A1c 5.5 CTA Head: - no large vessel occlusion - per radiologist read CTA Neck: - patent vessels - per radiologist read Other Imaging: ECHO with EF 50-55% # Assessment Impression: - Vertigo Favor BPPV with the movement-induced symptoms, though mild stroke possible # Plan Labs: - lipid panel Imaging: (urgency: routine): MRI brain pending Therapy/Evaluation: - PT/OT evaluation Medication: - aspirin 81 mg daily - start statin with goal of LDL < 70 Other: - If patient has any neurological deterioration please call me back immediately - will need event monitor or loop recorder as outpatient if atrial fibrillation not found as inpatient - telemetry monitoring - LDL < 70 # Logistics Attestation of consult completion: The patient is located at: [facility]. Facility staff participated in the visit. I performed this telemedicine visit from my offsite office utilizing interactive 2 way audio and visual telecommunication technology at the request of the onsite inpatient provider. Total time spent in telemedicine encounter: I spent 20 minutes reviewing clinical data and/or imaging, obtaining history, examining the patient, communicating with the onsite care team, and in preparation of this report. # Demographics First Name: Ovidio Last Name: Edin Facility: [facility] BRODY COLBERT MD Apr 24, 2025 17:37 Electronically Signed by: BRODY COLBERT MD04/24/25 1046 Electronically Co-Signed by: Procedure(s): [place] [id number] [place] [id number] IMAGING REPORT Signed PATIENT: OVIDIO AIKEN MR#: [id number] : 1950 SEX: F AGE: 74 LOCATION: [facility] ORDER 160 STATUS: REG ER REPORT#: [id number] SERVICE 160 REASON: VERTIGO C/P ORDERING PHYSICIAN: RAFAEL CAHND MD PROCEDURE: CXR1VW - CHEST 1VW CLINICAL INFORMATION Vertigo, chest pain COMPARISON None. TECHNIQUE Frontal view chest. FINDINGS Lines and tubes: None Lungs: Clear. Pleura: Unremarkable. No effusion or pneumothorax. Cardiomediastinal Silhouette: Unremarkable. Bones: Normal for age. Soft Tissues: Normal. IMPRESSION No acute cardiopulmonary findings. /[place]astern DICTATED BY: RAMONA GOODE MD DATE: 04/23/251747 ELECTRONICALLY SIGNED BY: RAMONA GOODE MD DATE: 04/23/251747 [facility] [address] [place] [address] IMAGING REPORT Signed PATIENT: OVIDIO AIKEN MR#: [id number] : 1950 SEX: F AGE: 74 LOCATION: [facility] ORDER 16 STATUS: ADM IN REPORT#: [id number] SERVICE 10 REASON: r/o lower extremity DVT ORDERING PHYSICIAN: BARBARA BURDEN MD PROCEDURE: VENOUS BRET - US VENOUS DOPPLER BILATERAL CLINICAL INFORMATION Bilateral lower extremity swelling COMPARISON None. TECHNIQUE Castro scale, color flow, and spectral Doppler sonography of the deep venous system of the lower extremity FINDINGS RIGHT Common femoral vein: Patent and easily compressible without intraluminal thrombus. Femoral vein: Patent and easily compressible without intraluminal thrombus. Popliteal vein: Patent and easily compressible without intraluminal thrombus. Doppler analysis: Normal venous flow including appropriate response to Valsalva, respiratory variation, and calf augmentation. CALF Posterior tibial vein: Patent and easily compressible without intraluminal thrombus. Peroneal veins: Patent and easily compressible without intraluminal thrombus. LEFT Common femoral vein: Patent and easily compressible without intraluminal thrombus. Femoral vein: Patent and easily compressible without intraluminal thrombus. Popliteal vein: Patent and easily compressible without intraluminal thrombus. Doppler analysis: Normal venous flow including appropriate response to Valsalva, respiratory variation, and calf augmentation. CALF Posterior tibial vein: Patent and easily compressible without intraluminal thrombus. Peroneal veins: Patent and easily compressible without intraluminal thrombus. IMPRESSION No deep venous thrombosis. /Eastern DICTATED BY: RAMONA GOODE MD DATE: 04/23/252042 ELECTRONICALLY SIGNED BY: RAMONA GOODE MD DATE: 04/23/252042 [place] [id number] [place] [id number] IMAGING REPORT Signed PATIENT: OVIDIO AIKEN MR#: [id number] : 1950 SEX: F AGE: 74 LOCATION: [facility] ORDER 20 STATUS: ADM IN REPORT#: [id number] SERVICE 18 REASON: acute onset vertigo close to 2:00 pm today ORDERING PHYSICIAN: BARBARA BURDEN MD PROCEDURE: HEAD WO - CT HEAD/BRAIN W/O CONTRAST EXAM: Non-contrast CT examination of the Brain. CLINICAL HISTORY: Acute onset of vertigo. TECHNIQUE: Thin collimated axial CT images of the brain were obtained, with sagittal and coronal reformatted images also submitted. A CT scan is done according to ALARA (As Low as Reasonably Achievable). CONTRAST USED: None. COMPARISON: Prior CT brain dated 04 October 2024. FINDINGS: Mild generalized brain atrophy and chronic microvascular ischemic white matter disease. No acute intracranial abnormality is present. No acute cortical infarction, hemorrhage, mass, or mass effect. No hydrocephalus or abnormal extra-axial fluid collections. The posterior fossa is unremarkable. The skull base and calvarium are intact. The included portions of the paranasal sinuses and mastoid air cells are clear. Deviated nasal septum towards the left. IMPRESSION: No acute intracranial abnormality is present. Mild generalized brain atrophy and chronic microvascular ischemic white matter disease. Compared to the prior study, there is no significant interval change. /Eastern DICTATED BY: MICHEAL HUGGINS Jr., MD DATE: 04/23/252240 ELECTRONICALLY SIGNED BY: MICHEAL HUGGINS Jr., MD DATE: 04/23/252240 [facility] [address] [place] [id number] IMAGING REPORT Addendum PATIENT: OVIDIO AIKEN MR#: [id number] : 1950 SEX: F AGE: 74 LOCATION: [facility] ORDER 31 STATUS: ADM IN REPORT#: [id number] SERVICE 30 REASON: r/o singificant intracranial vessel stenosis ORDERING PHYSICIAN: BARBARA BURDEN MD PROCEDURE: CTA [facility] - CT ANGIO HEAD AND NECK ADDENDUM REPORT ADDENDUM: Results were shared by telephone at 10:39 pm on 04-23-25 and acknowledged by patient's nurse Sunil Angel. /Taswell 1. EXAM: CTA Head with Intravenous Contrast. CLINICAL HISTORY: Rule out significant intracranial vessel stenosis. TECHNIQUE: Post-contrast axial CTA images of the head were performed. Coronal and sagittal reformatted images were generated and reviewed. A CT scan is done according to ALARA (As Low as Reasonably Achievable). COMPARISON: None provided. FINDINGS: Anterior cerebral arteries are unremarkable. The anterior communicating artery is opacified. The Middle Cerebral arteries are unremarkable. Posterior communicating arteries are opacified. Posterior cerebral arteries are intact. Vertebral arteries are visualized. The basilar artery is unremarkable. Intracranial internal carotid arteries demonstrate normal enhancement. No evidence of aneurysm (greater than 4 mm) or arteriovenous lesion. IMPRESSION: No hemodynamically significant abnormality in the intracranial arteries. 2. EXAM: CTA Neck with Intravenous Contrast. CLINICAL HISTORY: Rule out significant intracranial vessel stenosis. TECHNIQUE: Post-contrast axial CTA images of the head were performed. Coronal and sagittal reformatted images were generated and reviewed. A CT scan is done according to ALARA (As Low as Reasonably Achievable). COMPARISON: None provided. FINDINGS: CCA, Carotid Bulb, ICA, and origin of the ECA are well opacified. Vertebral arteries are well opacified. Jugular veins are well opacified. The included great vessels of the aortic arch are grossly unremarkable. Included lung apices are grossly unremarkable. No acute bony changes. Mildly deviated nasal septum towards the left. IMPRESSION: No hemodynamically significant abnormality in the neck arteries. /Eastern DICTATED BY: MICHEAL HUGGINS Jr., MD DATE: 04/23/252241 ELECTRONICALLY SIGNED BY: DATE: 1. EXAM: CTA Head with Intravenous Contrast. CLINICAL HISTORY: Rule out significant intracranial vessel stenosis. TECHNIQUE: Post-contrast axial CTA images of the head were performed. Coronal and sagittal reformatted images were generated and reviewed. A CT scan is done according to ALARA (As Low as Reasonably Achievable). COMPARISON: None provided. FINDINGS: Anterior cerebral arteries are unremarkable. The anterior communicating artery is opacified. The Middle Cerebral arteries are unremarkable. Posterior communicating arteries are opacified. Posterior cerebral arteries are intact. Vertebral arteries are visualized. The basilar artery is unremarkable. Intracranial internal carotid arteries demonstrate normal enhancement. No evidence of aneurysm (greater than 4 mm) or arteriovenous lesion. IMPRESSION: No hemodynamically significant abnormality in the intracranial arteries. 2. EXAM: CTA Neck with Intravenous Contrast. CLINICAL HISTORY: Rule out significant intracranial vessel stenosis. TECHNIQUE: Post-contrast axial CTA images of the head were performed. Coronal and sagittal reformatted images were generated and reviewed. A CT scan is done according to ALARA (As Low as Reasonably Achievable). COMPARISON: None provided. FINDINGS: CCA, Carotid Bulb, ICA, and origin of the ECA are well opacified. Vertebral arteries are well opacified. Jugular veins are well opacified. The included great vessels of the aortic arch are grossly unremarkable. Included lung apices are grossly unremarkable. No acute bony changes. Mildly deviated nasal septum towards the left. IMPRESSION: No hemodynamically significant abnormality in the neck arteries. /Eastern DICTATED BY: MICHEAL HUGGINS Jr., MD DATE: 04/23/252231 ELECTRONICALLY SIGNED BY: MICHEAL HUGGINS Jr., MD DATE: 04/23/252231 [place] [address] IMAGING REPORT Signed PATIENT: OVIDIO AIKEN MR#: [id number] : 1950 SEX: F AGE: 74 LOCATION: 4[facility] ORDER 24 STATUS: ADM IN REPORT#: [id number] SERVICE 22 REASON: r/o acute cva, acute onset of veritgo at 2 pm today ORDERING PHYSICIAN: BARBARA BURDEN MD PROCEDURE: BRAIN WO - MR BRAIN WO CON EXAM: MR Brain without Intravenous Contrast. CLINICAL HISTORY: Rule out acute CVA. TECHNIQUE: Magnetic resonance images of the brain without intravenous contrast in multiple planes. CONTRAST: None. COMPARISON: None provided. FINDINGS: BRAIN: No restricted diffusion to indicate acute infarction. No intracranial mass or hemorrhage. No midline shift or extra-axial fluid collection. No cerebellar tonsillar ectopia. No abnormal enhancement. The central arterial and venous flow voids are patent. Mild atrophy. VENTRICLES: No hydrocephalus. ORBITS: The orbits are normal. SINUSES AND MASTOIDS: The sinuses and mastoid air cells are clear. BONES: No acute fracture or focal osseous lesion. IMPRESSION: 1. No evidence of acute CVA or other acute abnormality. 2. Mild atrophy. /Taswell DICTATED BY: ANNE-MARIE CASTELLANO MD DATE: 04/24/251842 ELECTRONICALLY SIGNED BY: ANNE-MARIE CASTELLANO MD DATE: 04/24/251842 [place] [id number] IMAGING REPORT Signed PATIENT: OVIDIO AIKEN MR#: [id number] : 1950 SEX: F AGE: 74 LOCATION: 4CH ORDER 49 STATUS: ADM IN REPORT#: [id number] SERVICE 48 REASON: assess for heart failure, heart clinic to read ORDERING PHYSICIAN: BARBARA BURDEN MD PROCEDURE: ECHO CMP - ECHO 2-D COMPLETE APPROVED REPORT EXAM: Two-dimensional and M-mode echocardiogram with Doppler and color Doppler. INDICATION ICD: assess for heart failure 2D Dimensions RVDd 3.5 cm LVEF(%) 76.5 (>50%) LVED Vol(simp.) 83.0 mL IVSd 0.8 (0.7-1.1cm) FS(%) 45 % LVES Vol(simp.) 41.0 mL LVDd 4.5 (3.8-5.6cm) LA (2D) 3.5 (1.6-4.0cm) LVEF(%, simp.) 51 % PWd 1.0 (0.7-1.1cm) Ao Root(2D) 2.4 (2.0-3.7cm) LA ESV INDEX (BP) 31. 53 mL/m2 LVDs 2.5 (2.5-4.0cm) LVOT diam 2.0 (1.8-2.4cm) IVC diam 1.8 cm Deformation Strain Apical 4 -16.3 % Apical 2 -17.7 % Apical 3 -14.1 % Global Strain -16.0 % M-Mode Dimensions EPSS 0.6 cm LA (MM) 3.9 (1.6-4.0cm) Ao Root(MM) 2.7 (2.0-3.7cm) Aortic Valve AoV Vmax 1.4 m/s Ao Peak GR 7.8 mmHg LVOT Vmax 1.1 m/s AoV VTI 0.3 m Ao Mean GR 4.0 mmHg LVOT VTI 0.26 m FRANCISCO JAVIER (VMAX) 2.39 cm2 FRANCISCO JAVIER (VTI) 2.7 cm2 Mitral Valve MV E Vmax 99.0 cm/s DECEL Time 149 ms MV A Vmax 94.4 cm/s P 1/2 T 59 ms E/A ratio 1.0 MVA (PHT) 3.7 cm2 TDI E/E' Medial 10.9 E/E' Lateral 9.9 Medial E' Peak V 9.08 cm/s Lateral E' Peak V 10.02 cm/s Pulmonary Valve PV Vmax 1.1 m/s PV VTI 0.24 m PV Mean GR 2.7 mmHg PV Peak GR 4.6 mmHg Tricuspid Valve TR Vmax 2.5 m/s RVSP 23.2 mmHg TR Peak GR 27.7 mmHg Left Ventricle The left ventricle is normal size. There is normal left ventricular wall thickness. LVEF is 50-55%. The left ventricular diastolic function is normal. Right Ventricle The right ventricle is normal size. The right ventricular systolic function is normal. Atria The left atrium size is normal. The right atrium size is normal. Aortic Valve The aortic valve is normal in structure. No aortic regurgitation is present. There is no aortic valvular stenosis. Mitral Valve The mitral valve is normal in structure. Mitral regurgitation is trace. There is no mitral valve stenosis. Tricuspid Valve The tricuspid valve is normal in structure. There is trivial tricuspid valve regurgitation noted. Pulmonic Valve The pulmonary valve is normal in structure. There is no pulmonic valvular regurgitation. Great Vessels The aortic root is normal in size. The IVC is normal in size and collapses >50% with inspiration. Pericardium There is no pericardial effusion. Conclusion The left ventricle is normal size. LVEF is 50-55%. The left ventricular diastolic function is normal. The right ventricle is normal size. The right ventricular systolic function is normal. The left atrium size is normal. The right atrium size is normal. No valvular pathology. There is no pericardial effusion. DICTATED BY: VINNIE ZAYAS MD DATE: 04/24/25 1058 ELECTRONICALLY SIGNED BY: VINNIE ZAYAS MD DATE: 04/24/25 0876 [place] [address] IMAGING REPORT Signed PATIENT: OVIDIO AIKEN MR#: [id number] : 1950 SEX: F AGE: 74 LOCATION: [facility] ORDER 1144 STATUS: ADM IN REPORT#: [id number] SERVICE 1143 REASON: TENDERNESS, CELLULITIS ORDERING PHYSICIAN: BAL CHAIDEZ MD PROCEDURE: ART B LE - US ARTERIAL BILAT LOW EXT DUPL US ARTERIAL BILAT LOW EXT DUPL HISTORY: TENDERNESS, CELLULITIS TECHNIQUE: Real-time arterial doppler ultrasound of the lower extremity was performed. FINDINGS: RIGHT: Normal triphasic and biphasic waveforms seen in the evaluated arteries. Peak systolic velocities: MOTORCOACH DRIVER 189 cm/s. Proximal SFA 182 cm/s. Mid SFA 134cm/s Distal SFA 150 cm/s. Proximal popliteal 80 cm/s. Distal popliteal 83 cm/s. SEASONER HAND 100 cm/s. NANCY 79 cm/s. DPA 37 cm/s. LEFT: Normal triphasic and biphasic waveforms seen in the evaluated arteries. Peak systolic velocities: MOTORCOACH DRIVER 152 cm/s. Proximal SFA 151 cm/s. Mid SFA 165cm/s Distal SFA 184 cm/s. Proximal popliteal cm/s. Distal popliteal 118 cm/s. SEASONER HAND 103 cm/s. NANCY 104 cm/s. DPA 32 cm/s. IMPRESSION: No evidence of flow-limiting stenosis by velocity criteria. DICTATED BY: ESPERANZA TERRY MD DATE: 04/25/251520 ELECTRONICALLY SIGNED BY: ESPERANZA TERRY MD DATE: 04/25/251524 [place] [id number] IMAGING REPORT Signed PATIENT: OVIDIO AIKEN MR#: [id number] : 1950 SEX: F AGE: 74 LOCATION: [facility] ORDER 1146 STATUS: ADM IN REPORT#: [id number] SERVICE 1144 REASON: R/O ABCESS + CELLULITIS ORDERING PHYSICIAN: BAL CHAIDEZ MD PROCEDURE: LOW EXTWWO - CT LOW EXT W/WO CONTRAST EXAM: CT left leg, without and with IV contrast. CLINICAL HISTORY: To rule out abscess and cellulitis. TECHNIQUE: Axial computed tomography images of the left leg without intravenous contrast. CONTRAST: Without and with contrast. COMPARISON: None provided. FINDINGS: BONES: No acute fracture is evident. No aggressive appearing osseous lesion. No periosteal reaction evident. JOINTS: Small calcaneocuboid calcaneal sided osteophyte. The joint spaces appear within normal limits. No dislocation. SOFT TISSUES: Diffuse leg and ankle periarticular subcutaneous edema and skin thickening . No discrete drainable collection is seen. IMPRESSION: 1. No drainable fluid collection. 2. Diffuse subcutaneous edema and skin thickening of the left leg and ankle. This is consistent with cellulitis. 3. No definite evidence of osteomyelitis. /Taswell DICTATED BY: GEOFF FLORES MD DATE: 04/26/251225 ELECTRONICALLY SIGNED BY: GEOFF FLORES MD DATE: 04/26/251225 Assessment/Plan: Discharge Diagnosis Dizziness, nausea secondary to post viral vestibular neuritis,POA Hypertensive urgency, POA resolved Cellulitis, left lower extremity,POA Chronic sinusitis History of prior vertigo, POA Recent history of SARs COVID 19 infection, six weeks ago, POA - negative now Anemia, mild, POA Hypomagnesemia Underlying history of hypertension, POA Urinary incontinence POA Hypothyroidism, POA obesity, POA Recent history of fall, POA Obesity, POA Discharge Instructions: Admission Date: 04/23/25 Discharge Date: 04/25/25 Disposition: Home Condition at Discharge: Stable Activity: As tolerated Home Medications: Continued Discharge Medications: Augmentin 650mg po BID Meclizine 12.5mg PO BID PRN Medrol montague hector PO 6 days Follow-Up Appointments: Primary Care Provider: within 3 days of discharge SPECIFIC INSTRUCTIONS: Moves slowly when changing positions; use support when walking to prevent falls from dizziness; avoid driving until vertigo resolves. Take all prescribed antibiotics for cellulitis exactly as directed until the full course is completed. Keep the affected skin area clean and dry; elevate the limb if swollen Check daily for worsening redness, swelling, or drainage Maintain hydration of at least 1.5-2 L to reduced dizziness symptoms and get adequate rest to support healing Go to ED or call 911 if fever develops, redness spreads rapidly, swelling worsens, severe headache or new neurological symptoms occur or if vertigo suddenly worsens with vomiting or difficulty speaking or walking. Home Medications: Active Scripts Methylprednisolone (Medrol) 4 Mg Tab.ds.pk, 1 TAB PO AD for 6 Days, #21 TAB 0 Re fills continue from day 3 dose as you have received day 1 and day 2 doses at hospital Prov:DORA JARA MD 04/26/25 Amoxicillin/Potassium Clav (Augmentin 500-125 Tablet) 500 Mg-125 Mg Tablet, 1 TAB PO BID for 14 Days, #28 TAB 0 Refills Prov:DORA JARA MD 04/26/25 Meclizine HCl (Meclizine HCl) 12.5 Mg Tablet, 12.5 MG PO BID PRN for DIZZINESS for 3 Days, #6 TAB 0 Refills Prov:DORA JARA MD 04/26/25 Reported Medications Amlodipine Besylate (Amlodipine Besylate) 2.5 Mg Tablet, 2.5 TAB PO DAILY 04/24/25 Losartan Potassium (Losartan Potassium) 50 Mg Tablet, 1 TAB PO DAILY 04/24/25 Levothyroxine Sodium (Levothroid/Synthroid) 100 Mcg Tab, 1 TAB PO DAILY 04/24/25 Tramadol Hcl (Tramadol HCl) 50 Mg Tablet, 1 TAB PO BID PRN for PAIN 04/24/25 Estradiol (Estrace) 1 Mg Tablet, 1 TAB PO DAILY 04/24/25 Discontinued Reported Medications Amoxicillin/Potassium Clav (Augmentin 500-125 Tablet) 500 Mg-125 Mg Tablet, 1 EACH PO DAILY for 14 Days, TAB 04/26/25 Furosemide (Furosemide) 20 Mg Tablet, 1 TAB PO DAILY 04/24/25 Discontinued Scripts Meclizine HCl (Meclizine HCl) 25 Mg Tablet, 25 MG PO TID for vertigo, #15 TAB 0 Refills Prov:RAÚL DANIELS 10/04/24 Time spent arranging discharge: 1-30 minutes ATTESTATION BY PHYSICIAN I have seen and examined the patient. I reviewed the documentation, medical decision making, and treatment plan as noted by the resident provider above. I agree with the findings and plan of care. Bal Chaidez MD, BHAVANI MD Apr 26, 2025 15:07 DORA JARA MD Apr 26, 2025 18:10
--- NOTE | 2025-04-26 15:52 | NUR ---
DISCHARGE PIV DC'D PATIENT INFORMED OF FOLLOW UP APPOINTMENT ON WITH (PRIMARY) QUESTIONS ANSWERED PRIOR TO DISCHARGE
[2025-04-27] MEDS ORDERED: MEDROL DAY 4 BKF PO NR ×2 (07:30)
[2025-04-27] MEDS ORDERED: MEDROL DAY 4 LCH PO NR ×2 (11:30)
[2025-04-27] MEDS ORDERED: MEDROL DAY 4 DIN PO NR ×2 (16:30)
[2025-04-28] MEDS ORDERED: MEDROL DAY 5 BKF PO NR ×2 (07:30)
[2025-04-28] MEDS ORDERED: MEDROL DAY 5 HS PO NR ×2 (21:00)
[2025-04-29] MEDS ORDERED: MEDROL DAY 6 PO NR ×2 (07:30)
== END 2025-04-26 15:45 | disposition home or self-care (01) ==
LOC: EDH 15:31 → INTOOBSV 17:45 → UNDOADMOB 17:45 → EDHIP 17:45 → 4CH 21:44 → EDHIP 21:44 → 4CH 04-24 10:00 → EDHIP 04-24 10:00
PROVIDERS: ADMIT Internal Medicine; ATTEND Internal Medicine
DX: R42 Dizziness and giddiness (principal); Z20.822 Contact with and (suspected) exposure to COVID-19; L03.116 Cellulitis of left lower limb; J32.9 Chronic sinusitis, unspecified; D64.9 Anemia, unspecified; E83.42 Hypomagnesemia; R32 Unspecified urinary incontinence; E03.9 Hypothyroidism, unspecified; R00.2 Palpitations; M79.89 Other specified soft tissue disorders; R60.0 Localized edema; R61 Generalized hyperhidrosis; R55 Syncope and collapse; E66.9 Obesity, unspecified; I10 Essential (primary) hypertension; G89.29 Other chronic pain; I16.0 Hypertensive urgency; J45.909 Unspecified asthma, uncomplicated; E78.00 Pure hypercholesterolemia, unspecified; Z79.899 Other long term (current) drug therapy; Z90.710 Acquired absence of both cervix and uterus; Z88.8 Allergy status to other drugs, medicaments and biological substances; Z86.16 Personal history of COVID-19; Z68.33 Body mass index [BMI] 33.0-33.9, adult
CPT/HCPCS: 99285; 83036; 84443; 80076; 83735 ×3; 84484; 80048 ×4; 83880 ×2; 85025 ×2; 87804 ×2; 81003; 36415 ×4; 87635; 71045; 70450; 70496; 70498; 93970; 70551; 93005; 96372 ×3; 96361 ×2; 96365; 96366 ×4; 96367 ×2; 83540; 83550; 85651; 82948 ×10; 93306; 93356; 97161; 97116; 97530 ×2; 96376; 80061; 85027 ×2; 86140 ×2; 73702; 93925; J7030; Q9967 ×2; G0378 ×54; J3475; J1650 ×3; J0696 ×2; J7509 ×8; J3370; J3373

== ENCOUNTER → 2025-04-23 | Outpatient (CLI) | payer MEDICARE ==
[~2025-04-23] MED LIST changes: +AMLO2.5T4 PO; +ESTR1TAB21 PO; +FURO20TA4 PO; +LEVO100 PO; +LOSA50TA64 PO; +TRAM50TA4 PO
--- NOTE | 2025-04-24 19:33 | HMCIMG ---
EXAM: CR Left Knee, 3 views. CLINICAL HISTORY: Pain. COMPARISON: None provided. FINDINGS: Mild osteopenia. Moderate to severe degenerative changes in the medial tibiofemoral joint compartment with a marginal osteophyte. Mild degenerative changes in the patellofemoral joint compartment. The lateral tibiofemoral joint compartment is relatively preserved. No acute fracture or aggressive appearing osseous lesion. There is no joint effusion appreciated. The soft tissues are unremarkable. IMPRESSION: No acute osseous abnormality. Mild osteopenia. Moderate to severe degenerative changes in the medial tibiofemoral joint compartment with marginal osteophyte. Mild degenerative changes in the patellofemoral joint compartment. Lateral tibiofemoral joint compartment is relatively preserved. /[place]
--- NOTE | 2025-04-24 19:34 | HMCIMG ---
EXAM: CR left Elbow, 2 views. CLINICAL HISTORY: Pain in the left elbow. COMPARISON: None provided. FINDINGS: No acute fracture or aggressive appearing osseous lesion. Joint spaces are within normal limits. No radiographic evidence of joint effusion. Mild soft tissue edema posterior to the distal arm and posterior to the elbow joint. IMPRESSION: No acute osseous abnormality. Mild soft tissue edema posterior to the distal arm and posterior to the elbow joint. /[place]
--- NOTE | 2025-04-24 19:35 | HMCIMG ---
EXAM: CR Left Ankle, 3 views. CLINICAL HISTORY: Pain in the left ankle and joints of the left foot. COMPARISON: None provided. FINDINGS: Mild osteopenia. Degenerative changes in the tibiotalar, talofibular, and intertarsal joints. Diffuse soft tissue edema around the ankle joint, the distal one-third of the leg, and the dorsal aspect of the foot. No acute fracture or aggressive appearing osseous lesion. No radiographic evidence of joint effusion. IMPRESSION: No acute osseous abnormality. Mild osteopenia. Degenerative changes in the tibiotalar, talofibular, and intertarsal joints. Diffuse soft tissue edema around the ankle joint, the distal one-third of the leg, and the dorsal aspect of the foot. /[place]
--- NOTE | 2025-04-24 19:35 | HMCIMG ---
EXAM: CR left forearm, 1 view. CLINICAL HISTORY: Pain in the left forearm. COMPARISON: None provided. FINDINGS: No acute fracture or aggressive appearing osseous lesion. Mild degenerative changes in the radiocarpal joint. The elbow joint appears unremarkable. Minimal soft tissue edema posterior to the distal arm and the elbow joint. No acute osseous abnormality. IMPRESSION: No acute osseous abnormality. Mild degenerative changes in the radiocarpal joint. Minimal soft tissue edema posterior to the distal arm and the elbow joint. /[place]
== END | disposition home or self-care (01) ==
LOC: RAH 14:11
PROVIDERS: ATTEND Internal Medicine Nephrology
DX: M19.032 Primary osteoarthritis, left wrist (principal); M85.872 Other specified disorders of bone density and structure, left ankle and foot; M19.072 Primary osteoarthritis, left ankle and foot; M25.422 Effusion, left elbow; M17.12 Unilateral primary osteoarthritis, left knee; M25.762 Osteophyte, left knee; M25.572 Pain in left ankle and joints of left foot; M25.522 Pain in left elbow; M25.562 Pain in left knee; M79.632 Pain in left forearm
CPT/HCPCS: 73070; 73090; 73562; 73610

== ENCOUNTER 2025-05-27 19:31 | Emergency (ER) | payer MEDICARE ==
[~2025-05-27] VITALS: Ht 157.5 cm; Wt 80.3 kg
[~2025-05-27 19:31] MED LIST changes: +AMLO2.5T4 PO; +AMOX-426 PO; +ESTR1TAB21 PO; +LEVO100 PO; +LOSA50TA64 PO; +MECL-226 PO; -MECL-302 PO; +METH4TAB3 PO; +TRAM50TA4 PO
--- NOTE | 2025-05-27 19:42 | ERN ---
ED Note History of Present Illness Stated Complaint: C/O DIZZINESS W/NAUSEA Chief Complaint: Dizzy/Light Headed Time Seen by MD: 19:35 Dictation: PATIENT IS A 75-YEAR-OLD FEMALE COMING IN TODAY WITH COMPLAINTS OF DIZZINESS WITH NUMBNESS AND TINGLING TO HER LEFT 4TH AND 5TH FINGERS ONSET WAS TUESDAY. SHE DENIES ANY HEADACHE NO CHEST PAIN NO BACK PAIN NO SOB. NO NAUSEA VOMITING. SHE SAID SINCE STARTING TODAY IT IS MORE TOWARD THE RIGHT HAND. SHE IS NEUROLOGICALLY INTACT SPEECH IS CLEAR NIH IS 0. Allergies: Coded Allergies: thimerosal (Unverified Allergy, Unknown, 06/28/23) Home Meds Active Scripts Methylprednisolone (Medrol) 4 Mg Tab.ds.pk, 1 TAB PO AD for 6 Days, #21 TAB 0 Refills continue from day 3 dose as you have received day 1 and day 2 doses at hospital Prov:DORA JARA MD 04/26/25 Amoxicillin/Potassium Clav (Augmentin 500-125 Tablet) 500 Mg-125 Mg Tablet, 1 TAB PO BID for 14 Days, #28 TAB 0 Refills Prov:DORA JARA MD 04/26/25 Meclizine HCl (Meclizine HCl) 12.5 Mg Tablet, 12.5 MG PO BID PRN for DIZZINESS for 3 Days, #6 TAB 0 Refills Prov:DORA JARA MD 04/26/25 Reported Medications Amlodipine Besylate (Amlodipine Besylate) 2.5 Mg Tablet, 2.5 TAB PO DAILY 04/24/25 Losartan Potassium (Losartan Potassium) 50 Mg Tablet, 1 TAB PO DAILY 04/24/25 Levothyroxine Sodium (Levothroid/Synthroid) 100 Mcg Tab, 1 TAB PO DAILY 04/24/25 Tramadol Hcl (Tramadol HCl) 50 Mg Tablet, 1 TAB PO BID PRN for PAIN 04/24/25 Estradiol (Estrace) 1 Mg Tablet, 1 TAB PO DAILY 04/24/25 Past Medical History Past Medical History: High Cholesterol, Hypertension Additional Past Medical Hx: VERTIGO Surgical History: Hysterectomy Surgical History Other: RT OVARIAN TUMOR REMOVAL, RT EYE SX, SINUS SX Family History: DM, HTN Social History: Negative, Lives with family History: Not Applicable RN Note Reviewed/Agreed w/PFSH: Yes Review of System Dictation CONSTITUTIONAL: NEGATIVE EXCEPT FOR HPI HEAD/FACE: NEGATIVE EXCEPT FOR HPI EENT: NEGATIVE EXCEPT FOR HPI RESPIRATORY: NEGATIVE EXCEPT FOR HPI GASTROINTESTINAL/ABDOMINAL: NEGATIVE EXCEPT FOR HPI GENITOURINARY: NEGATIVE EXCEPT FOR HPI MUSCULOSKELETAL: NEGATIVE EXCEPT FOR HPI INTEGUMENTARY: NEGATIVE EXCEPT FOR HPI NEUROLOGICAL/PSYCH: NEGATIVE EXCEPT FOR HPI DIZZINESS WITH NUMBNESS AND TINGLING TO LEFT 4TH AND 5TH FINGERS HEMATOLOGIC/LYMPHATIC: NEGATIVE EXCEPT FOR HPI ALL SYSTEMS NEGATIVE, EXCEPT NOTED ABOVE. 13 POINT REVIEW OF SYSTEMS ASSESSED AND ALL NEGATIVE EXCEPT FOR ABOVE. Initial Vital Sign VS Vital Signs Date Time Temp Pulse Resp B/P (MAP) Pulse Ox O2 Delivery O2 Flow Rate FiO2 05/27/25 19:35 98.6 97 20 177/71 97 Room Air 05/27/25 20:06 0 21 Physical Exam Dictation VITAL SIGNS REVIEWED GENERAL APPEARANCE: ALERT, ORIENTED X 3, NO ACUTE DISTRESS, WELL DEVELOPED, NOURISHED. ANXIOUS HEAD AND FACE: NON-TRAUMATIC. EYES: PERRL, PINK CONJUNCTIVAS, EYELID NO TRAUMA, ANTERIOR CHAMBER WITH ARCUS SENILIS. EARS: PINNAS INTACT AND NO SIGNS OF TRAUMA OR ERYTHEMA EAR CANALS CLEAR AND NO DISCHARGE TM NO ERYTHEMA NOSE: NO DISCHARGE, NO BLEEDING. OROPHARYNX: MOUTH NORMAL, TONGUE PINK, PHARYNX CLEAR,NO ERYTHEMA, TONSILS NO EXUDATES, NO ABSCESSES NOTED, MUCOUS MEMBRANE MOIST NECK: SUPPLE, NON-TENDER, NO THYROMEGALY, NO MASSES, NO JVD, NO BRUITS BREAST:DEFERRED CHEST:NO TENDERNESS, NO CREPITUS, NO PARADOXICAL MOVEMENT, NO RETRACTIONS LUNGS:CLEAR, WELL-VENTILATED, SYMMETRIC, NO RALES, NO WHEEZING, NO RHONCHI, NO STRIDOR, GOOD BREATH SOUNDS BILATERALLY HEART: TACHYCARDIC, NO MURMUR, NO GALLOPS VASCULAR: NO PERIPHERAL EDEMA, ABDOMEN: SOFT, POSITIVE BOWEL SOUNDS, NONDISTENDED, NO GUARDING, NONTENDER, NO REBOUND, NO MASSES NO HEPATOMEGALY, NO SPLENOMEGALY, NO FORRESTER'S SIGN, NO HERNIAS. RECTAL: DEFERRED GENITAL: DEFERRED NEUROLOGICAL: NORMAL SPEECH, MOTOR FUNCTION INTACT, SENSORY FUNCTION INTACT NIH IS 0 MUSCULOSKELETAL: NECK NONTENDER, FULL RANGE OF MOTION, BACK NONTENDER, FULL RANGE OF MOTION, EXTREMITIES: NONTENDER, FULL RANGE OF MOTION SKIN: COLOR PINK, DRY, NO TURGOR, NO RASH, NO LACERATIONS, NO ABRASIONS, NO CONTUSIONS. LYMPHATIC: DEFERRED Results (Laboratory/Radiology) Laboratory/Radiology Laboratory Tests Test 05/27/25 20:08 05/27/25 20:48 White Blood Count 8.2 K/uL (4.8-10.8) Red Blood Count 3.74 MIL/uL (4.00-5.50) L Hemoglobin 10.8 g/dL (12.0-16.0) L Hematocrit 32.5 % (36-48) L Mean Corpuscular Volume 86.9 fL (79-99) Mean Corpuscular Hemoglobin 28.9 pg (27.0-33.0) Mean Corpuscular Hemoglobin Concent 33.2 g/dL (32.0-36.0) Red Cell Distribution Width 13.1 % (11.0-15.5) Platelet Count 241 K/uL (130-400) Mean Platelet Volume 8.5 fL (7.5-10.5) Immature Granulocyte % (Auto) 0.4 % (0-1) Neutrophils (%) (Auto) 74.0 % (40.0-77.0) Lymphocytes (%) (Auto) 17.1 % (21.0-51.0) L Monocytes (%) (Auto) 7.0 % (3.0-13.0) Eosinophils (%) (Auto) 1.0 % (0.0-8.0) Basophils (%) (Auto) 0.5 % (0.0-5.0) Neutrophils # (Auto) 6.1 K/uL (1.8-7.7) Lymphocytes # (Auto) 1.4 K/uL (1.0-4.8) Monocytes # (Auto) 0.6 K/uL (0.1-1.0) Eosinophils # (Auto) 0.08 K/uL (0.00-0.70) Basophils # (Auto) 0.04 K/uL (0.00-0.20) Absolute Immature Granulocyte (auto 0.03 K/uL (0-1) Nucleated Red Blood Cells 0.0 % (0.0-0.19) Sodium Level 136 mmol/L (136-145) Potassium Level 3.9 mmol/L (3.5-5.1) Chloride Level 100 mmol/L (101-111) L Carbon Dioxide Level 32 mmol/L (21-32) Blood Urea Nitrogen 22 mg/dL (7-18) H Creatinine 0.7 mg/dL (0.5-1.0) Glomerular Filtration Rate Calc 91 mL/min (>90) Random Glucose 110 mg/dL (70-105) H Total Calcium 10.0 mg/dL (8.5-10.1) Magnesium Level 1.70 mg/dL (1.80-2.40) L Troponin I High Sensitivity 18 ng/L (4-50) Urine Color YELLOW (YELLOW) Urine Appearance CLOUDY (CLEAR) H Urine pH 8.0 (5.0-8.0) Urine Specific [place] 1.031 (1.001-1.031) Urine Protein 10 mg/dL (NEGATIVE) H Urine Glucose (UA) NEGATIVE mg/dL (NEGATIVE) Urine Ketones NEGATIVE mg/dL (NEGATIVE) Urine Occult Blood NEGATIVE (NEGATIVE) Urine Nitrate NEGATIVE (NEGATIVE) Urine Bilirubin NEGATIVE mg/dL (NEGATIVE) Urine Urobilinogen 0.2 mg/dL (0.2-1.0) Urine Leukocyte Esterase NEGATIVE [place]/uL Urine RBC 2-5 /HPF (0-1) H Urine WBC 11-25 /HPF (0-1) H Urine WBC Clumps (Auto) FEW /HPF (0-1) Urine Squamous Epithelial Cells FEW /HPF (0-2) Urine Other Crystals (Auto) 5 /HPF (None Seen) Urine Amorphous Crystals (Auto) FEW /LPF (None Seen) Urine Bacteria FEW /HPF (None Seen) Urine Yeast FEW /HPF (None Seen) Labs Reviewed?: Yes EKG Comment: EKG SINUS TACHYCARDIA/HEART RATE 103/AXIS NORMAL/NO ECTOPY ED Course ED Course Orders Procedure Category Date Status Time Cbc With Differential LAB 05/27/25 Complete 19:39 12 Lead Ekg Tracing- EKG 05/27/25 Complete Technical 19:39 Magnesium LAB 05/27/25 Complete 19:39 Troponin I High LAB 05/27/25 Complete Sensitivity 19:39 Urinalysis Profile LAB 05/27/25 Complete 19:39 Basic Metabolic Panel LAB 05/27/25 Complete 19:39 Magnesium 2gm Premix PHA 05/27/25 In Process 50ml (Magnesium 2gm 21:00 Culture Urine ESTHER 05/27/25 In Process 21:34 Dexamethasone 4mg/Ml PHA 05/27/25 Logged 1ml Vial (Dexametha 22:00 Current Medications Medications (Trade) Dose Ordered Sig/Sunshine Route PRN Reason Start Time Stop Time Status Last Admin Dose Admin Dexamethasone Sodium Phosphate (dexaMETHasone 4MG/ML 1ML VIAL) 8 mg ONCE ONCE IVP 05/27/25 22:00 05/27/25 22:01 UNV Magnesium Sulfate 50 ml @ 0 mls/hr PROTOCOL IV 05/27/25 21:00 06/26/25 20:59 05/27/25 21:32 Vital Signs Date Time Temp Pulse Resp B/P (MAP) Pulse Ox O2 Delivery O2 Flow Rate FiO2 05/27/25 20:06 98.2 100 20 149/71 96 Room Air* 0 21 05/27/25 19:35 98.6 97 20 177/71 97 Room Air 2145/patient feels markedly improved after treatment. She will be discharged home with complaints of vertigo and dizziness. Magnesium was replaced Patient has a chronic anemia NIH is 0 on discharge HEART Score Response (Comments) Value EKG: Repolarization changes 1 Age: > 65yrs (+2) 2 Risk Factors: 1-2 risk factors (+1) 1 Initial Troponin: Normal limit (0) 0 Total 4 Medical Decision Making MDM MDM: Differential diagnosis: ACS/AMI/electrolyte imbalance/dehydration/arrhythmia/hypomagnesemia Rationale: Tests considered and ordered secondary to shared decision making include: EKG/labs Previous outside records reviewed: Old ER visits. Risk of complication and/or morbidity or mortality of patient management: None Medications-Per medication reconciliation Need for hospitalization: Patient does not meet criteria for hospitalization. None Need for emergency major/minor surgery: No There are no social concerns with this patient. Prescription drug management meclizine Prescriptions will include symptomatic care Patient's prior external medical records from other ER visits were reviewed by me as indicated. Prior testing and results from previous visits were reviewed. Prior tests were taken into account with medical decision making and resource utilization, independent historian/historians were used to obtain complete medical history. I independently interpreted the test that were performed, results were reviewed by me and considered findings on radiology if ordered. Medical management and examination interpretation discussions were had by me with other qualified healthcare professionals as indicated for the patient's care. DX & DISP Disposition: Discharge Departure Impression: Primary Impression: Benign positional vertigo Additional Impressions: Chronic anemia, Dehydration, Hypomagnesemia Condition: Stable Scripts Meclizine HCl (Meclizine HCl) 25 Mg Tablet 25 MG PO TID for vertigo, #30 TAB 0 Refills Prov: LADAN REBOLLAR NP 05/27/25 Additional Instructions: Follow-up with primary care provider in 1 to 2 days. Take medications as directed here in the emergency room. Okay to continue home medications unless otherwise discussed during your visit in the emergency room today. Return to your nearest emergency room if symptoms worsen or if there is no improvement. Call 911 if you need immediate assistance. Take Tylenol or Motrin [id number] as needed and if no contraindications are present. Increase oral hydration. A wound culture or urine culture was ordered here in the emergency room department please follow-up with primary care provider and advise them to get repeat ports from our facility. If you had any Kartik wrap/splints that were applied here, please do not remove them until you see your primary care or specialty. Continue meclizine at home every 8 hours from your primary care doctor. See your primary care doctor for follow up in 1-2 days. Referrals: GREGORY GONZALES MD (PCP) Time of Disposition: 21:46 I have reviewed the case, and I agree with, Diagnosis and Plan LADAN REBOLLAR NP May 27, 2025 19:42
--- NOTE | 2025-05-27 19:52 | EKG ---
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
[2025-05-27 20:15] LABS: IMMATURE GRANULOCYTE ABSOLUTE 0.03 K/uL (0-1); NUCLEATED RED BLOOD CELLS 0.0 % (0.0-0.19); PLATELET COUNT (AUTO) 241 K/uL (130-400); RED BLOOD CELL COUNT(AUTO) 3.74 MIL/uL (4.00-5.50); RED CELL DISTRIBUTION WIDTH 13.1 % (11.0-15.5); WHITE BLOOD COUNT (AUTO) 8.2 K/uL (4.8-10.8)
[2025-05-27 20:25] LABS: CREATININE 0.7 mg/dL (0.5-1.0); GLOMERULAR FILTR. RATE CALC 91.0 mL/min (>90); GLUCOSE,RANDOM 110.0 mg/dL (70-105); SODIUM SERUM 136.0 mmol/L (136-145); UREA NITROGEN, BLOOD 22.0 mg/dL (7-18)
[2025-05-27 21:14] LABS: APPEARANCE,URINE CLOUDY (CLEAR); GLUCOSE, URINE (UA) NEGATIVE (NEGATIVE); LEUKOCYTE ESTERASE ,URINE NEGATIVE Leu/uL (NEGATIVE); NITRATE,URINE NEGATIVE (NEGATIVE); OCCULT BLOOD,URINE NEGATIVE (NEGATIVE)
[2025-05-27 21:16] LABS: ADD UA MICROSCOPIC YES
[2025-05-27 21:30] LABS: SQUAMOUS EPITHELIAL CELL,UR FEW /HPF (0-2); UNCLASSIFIED CRYSTAL 5 /HPF (None Seen); WBC CLUMP FEW /HPF (0-1); YEAST,URINE BUDDING FEW /HPF (None Seen)
[2025-05-27] MEDS: MAGNESIUM 2GM PREMIX 50ML 50 ML IV SCH (21:32)
[2025-05-27] MEDS ORDERED: MECL-302 PO (21:47)
[2025-05-27 22:03] VITALS: BP 152/87; PULSE 82; RESP 20; TEMP 98.2; O2SAT 98
== END 2025-05-27 22:27 | disposition home or self-care (01) ==
LOC: EDH 19:31
DX: H81.10 Benign paroxysmal vertigo, unspecified ear (principal); D64.9 Anemia, unspecified; E86.0 Dehydration; E83.42 Hypomagnesemia; E78.00 Pure hypercholesterolemia, unspecified; I10 Essential (primary) hypertension; Z79.818 Long term (current) use of other agents affecting estrogen receptors and estrogen levels; Z79.899 Other long term (current) drug therapy; Z90.710 Acquired absence of both cervix and uterus
CPT/HCPCS: 99284; 96365; 96375; 83735; 84484; 80048; 85025; 87086; 81001; 36415; 93005; J1100; J3475

== ENCOUNTER 2025-05-29 13:51 | Emergency (ER) | payer MEDICARE ==
[~2025-05-29] VITALS: Ht 157.5 cm; Wt 80.3 kg
[~2025-05-29 13:51] MED LIST changes: +MECL-302 PO
[2025-05-29 14:43] LABS: IMMATURE GRANULOCYTE ABSOLUTE 0.03 K/uL (0-1); NUCLEATED RED BLOOD CELLS 0.0 % (0.0-0.19); PLATELET COUNT (AUTO) 267 K/uL (130-400); RED BLOOD CELL COUNT(AUTO) 3.65 MIL/uL (4.00-5.50); RED CELL DISTRIBUTION WIDTH 13.2 % (11.0-15.5); WHITE BLOOD COUNT (AUTO) 9.7 K/uL (4.8-10.8)
[2025-05-29 14:53] LABS: CREATININE 0.7 mg/dL (0.5-1.0); GLOMERULAR FILTR. RATE CALC 91.0 mL/min (>90); GLUCOSE,RANDOM 118.0 mg/dL (70-105); SODIUM SERUM 143.0 mmol/L (136-145); UREA NITROGEN, BLOOD 18.0 mg/dL (7-18)
--- NOTE | 2025-05-29 14:55 | ERN ---
General Chief Complaint: Chest Pain Stated Complaint: CP Time Seen by : 13:54 Source: patient History of Present Illness Initial Comments This patient is a 75-year-old female who presented to the ED with complaint of chest pain. Patient stated that she developed pain this morning which was stabbing in nature and it resolved on its own. It was associated with mild shortness of breath. Patient currently denies any chest pain. She was seen in the ED a week ago because of vertigo. She also complained of paresthesias in her left foot, localized to lateral toes. She stated that she has had these paresthesias for several months and she also stated that she walks with a stooped posture which helps with the pain in lower extremity. She refused to go or be transferred to [facility] for comprehensive neurological evaluation. She also confirmed she had been under a lot of stress. Timing/Duration: 24 hours Severity: mild Associated Symptoms: weakness Allergies: Coded Allergies: thimerosal (Unverified Allergy, Unknown, 06/28/23) Home Meds Active Scripts Meclizine HCl (Meclizine HCl) 25 Mg Tablet, 25 MG PO TID for vertigo, #30 TAB 0 Refills Prov:LADAN REBOLLAR NP 05/27/25 Methylprednisolone (Medrol) 4 Mg Tab.ds.pk, 1 TAB PO AD for 6 Days, #21 TAB 0 Refills continue from day 3 dose as you have received day 1 and day 2 doses at hospital Prov:DORA JARA MD 04/26/25 Amoxicillin/Potassium Clav (Augmentin 500-125 Tablet) 500 Mg-125 Mg Tablet, 1 TAB PO BID for 14 Days, #28 TAB 0 Refills Prov:DORA JARA MD 04/26/25 Meclizine HCl (Meclizine HCl) 12.5 Mg Tablet, 12.5 MG PO BID PRN for DIZZINESS for 3 Days, #6 TAB 0 Refills Prov:DORA JARA MD 04/26/25 Reported Medications Amlodipine Besylate (Amlodipine Besylate) 2.5 Mg Tablet, 2.5 TAB PO DAILY 04/24/25 Losartan Potassium (Losartan Potassium) 50 Mg Tablet, 1 TAB PO DAILY 04/24/25 Levothyroxine Sodium (Levothroid/Synthroid) 100 Mcg Tab, 1 TAB PO DAILY 04/24/25 Tramadol Hcl (Tramadol HCl) 50 Mg Tablet, 1 TAB PO BID PRN for PAIN 04/24/25 Estradiol (Estrace) 1 Mg Tablet, 1 TAB PO DAILY 04/24/25 Past Medical History Past Medical History: High Cholesterol, Hypertension, UTI Medical History Other: VERTIGO Past Surgical History: Hysterectomy Surgical History Other: RT OVARIAN REMOVAL, RT EYE SX, HEART CATH Family History Family History: DM, HTN Social History Social History: Negative, Lives with family Female( History) History: Not Applicable Constitutional: (+) weakness Respiratory: (+) short of breath Cardiovascular: (+) chest pain, (+) edema, (+) dyspnea on exertion Gastrointestinal/Abdominal: (-) nausea, (-) vomiting, (-) diarrhea, (-) abdominal pain, (-) abdominal distention, (-) constipation, (-) rectal bleeding, (-) dark stool/melena, (-) other documentation Physical Exam General Appearance: (+) mild distress Orientation: (+) alert Head/Face Trauma: No Ear, Nose, Throat: (+) hearing grossly normal, (+) normal ENT inspection, (+) moist mucous membraine Neck: (+) normal inspection, (+) supple, (+) full range of motion Respiratory: (+) chest non-tender Vascular: (+) edema Gastrointestinal: (+) soft, (+) non-tender Back: (+) normal inspection, (+) no vertebral tenderness Neurologic/Psychiatric: (+) normal speech, (+) no motor defecits Results Laboratory and Microbiology Lab and Micro Result Laboratory Tests Test 05/29/25 14:35 05/29/25 15:32 White Blood Count 9.7 K/uL (4.8-10.8) Red Blood Count 3.65 MIL/uL (4.00-5.50) L Hemoglobin 10.7 g/dL (12.0-16.0) L Hematocrit 31.8 % (36-48) L Mean Corpuscular Volume 87.1 fL (79-99) Mean Corpuscular Hemoglobin 29.3 pg (27.0-33.0) Mean Corpuscular Hemoglobin Concent 33.6 g/dL (32.0-36.0) Red Cell Distribution Width 13.2 % (11.0-15.5) Platelet Count 267 K/uL (130-400) Mean Platelet Volume 8.7 fL (7.5-10.5) Immature Granulocyte % (Auto) 0.3 % (0-1) Neutrophils (%) (Auto) 63.9 % (40.0-77.0) Lymphocytes (%) (Auto) 28.1 % (21.0-51.0) Monocytes (%) (Auto) 6.5 % (3.0-13.0) Eosinophils (%) (Auto) 0.8 % (0.0-8.0) Basophils (%) (Auto) 0.4 % (0.0-5.0) Neutrophils # (Auto) 6.2 K/uL (1.8-7.7) Lymphocytes # (Auto) 2.7 K/uL (1.0-4.8) Monocytes # (Auto) 0.6 K/uL (0.1-1.0) Eosinophils # (Auto) 0.08 K/uL (0.00-0.70) Basophils # (Auto) 0.04 K/uL (0.00-0.20) Absolute Immature Granulocyte (auto 0.03 K/uL (0-1) Nucleated Red Blood Cells 0.0 % (0.0-0.19) Sodium Level 143 mmol/L (136-145) Potassium Level 3.5 mmol/L (3.5-5.1) Chloride Level 103 mmol/L (101-111) Carbon Dioxide Level 34 mmol/L (21-32) H Blood Urea Nitrogen 18 mg/dL (7-18) Creatinine 0.7 mg/dL (0.5-1.0) Glomerular Filtration Rate Calc 91 mL/min (>90) Random Glucose 118 mg/dL (70-105) H Total Calcium 9.8 mg/dL (8.5-10.1) Magnesium Level 1.50 mg/dL (1.80-2.40) L Total Creatine Kinase 125 U/L (21-232) Troponin I High Sensitivity 11 ng/L (4-50) Urine Color LIGHT-YELLOW (YELLOW) Urine Appearance CLEAR (CLEAR) Urine pH 6.5 (5.0-8.0) Urine Specific [place] 1.027 (1.001-1.031) Urine Protein NEGATIVE mg/dL (NEGATIVE) Urine Glucose (UA) NEGATIVE mg/dL (NEGATIVE) Urine Ketones NEGATIVE mg/dL (NEGATIVE) Urine Occult Blood NEGATIVE (NEGATIVE) Urine Nitrate NEGATIVE (NEGATIVE) Urine Bilirubin NEGATIVE mg/dL (NEGATIVE) Urine Urobilinogen 0.2 mg/dL (0.2-1.0) Urine Leukocyte Esterase NEGATIVE [place]/uL Labs Reviewed?: Yes EKG/XRAY/US/CT/MRI EKG: (+) NSR EKG Comment 05/29/2025 13:42:44 Rate 87. Sinus rhythm Negative for ST segment elevation. AK 136 QT 337 [place] P 37, QRS 5, T 48 X-RAY Comment PATIENT: OVIDIO AIKEN MR#: [id number] : 1950 SEX: F AGE: 75 LOCATION: [facility] ORDER 17 STATUS: [facility] REPORT#: [id number] SERVICE 17 REASON: CP ORDERING PHYSICIAN: RAFAEL CHAND MD PROCEDURE: CXR1VW - CHEST 1VW EXAM: CR Chest, 1 View. CLINICAL HISTORY: COMPARISON: April 23, 2025 FINDINGS: LUNGS: There is no mass, infiltrate, or acute pulmonary abnormality. PLEURAL SPACES: No evidence of pleural effusion or pneumothorax. MEDIASTINUM: Cardiac size and mediastinal contours within normal limits. BONES: No acute osseous abnormality. IMPRESSION: No acute cardiopulmonary pathology is evident. /[place] DICTATED BY: MICHEAL HUGGINS Jr., MD DATE: 05/29/251611 ELECTRONICALLY SIGNED BY: MICHEAL HUGGINS Jr., MD DATE: 05/29/251611 CT Scan Comment XAM: Non-contrast CT examination of the Brain. CLINICAL HISTORY: Left sided weakness TECHNIQUE: Thin collimated axial CT images of the brain were obtained, with sagittal and coronal reformatted images also submitted. The CT scan was performed according to ALARA (As Low as Reasonably Achievable) principles. CONTRAST USED: None. COMPARISON: Prior CT brain dated April 23, 2025. FINDINGS: Mild generalized brain atrophy and chronic microvascular ischemic white matter disease. Subtle ill-defined hypodensities are seen in the right temporal lobe. No acute hemorrhage, mass, or mass effect. No hydrocephalus or abnormal extra-axial fluid collections. The posterior fossa is unremarkable. The skull base and calvarium are intact. The included portions of the paranasal sinuses and mastoid air cells are clear. Deviated nasal septum towards the left. IMPRESSION: * Subtle ill-defined hypodensities in the right temporal lobe, concerning for acute infarct. MRI brain with DWI is recommended for further evaluation. * Mild generalized brain atrophy and chronic microvascular ischemic white matter disease. /[place] DICTATED BY: LATRELL ZURITA MD DATE: 05/29/252058 ELECTRONICALLY SIGNED BY: DATE: EXAM: Non-contrast CT examination of the Brain. CLINICAL HISTORY: Left sided weakness TECHNIQUE: Thin collimated axial CT images of the brain were obtained, with sagittal and coronal reformatted images also submitted. The CT scan was performed according to ALARA (As Low as Reasonably Achievable) principles. CONTRAST USED: None. COMPARISON: Prior CT brain dated April 23, 2025. FINDINGS: Mild generalized brain atrophy and chronic microvascular ischemic white matter disease. Subtle ill-defined hypodensities are seen in the right temporal lobe. No acute hemorrhage, mass, or mass effect. No hydrocephalus or abnormal extra-axial fluid collections. The posterior fossa is unremarkable. The skull base and calvarium are intact. The included portions of the paranasal sinuses and mastoid air cells are clear. Deviated nasal septum towards the left. IMPRESSION: * Subtle ill-defined hypodensities in the right temporal lobe, concerning for acute infarct. MRI brain with DWI is recommended for further evaluation. * Mild generalized brain atrophy and chronic microvascular ischemic white matter disease. /[place] DICTATED BY: LATRELL ZURITA MD DATE: 05/29/252037 ELECTRONICALLY SIGNED BY: LATRELL ZURITA MD DATE: 05/29/252037 MDM Differential diagnosis: Hypomagnesemia, unspecified chronic pain This patient, 75 years old female, presented with complaints of chest pain. Patient also confirmed history of paresthesia in the left lower extremity. An EKG was done to evaluate chest pain which was unremarkable for any ST-elevation and demonstrated normal sinus rhythm. CBC showed normocytic anemia with hemoglobin 10.7. BMP analysis showed low magnesium, 1.5 for which she was given magnesium sulfate. Troponin 1 high sensitivity and total creatinine kinase were unremarkable. Chest x-ray was also unremarkable for any acute cardiopulmonary pathology. Urinalysis also came back unremarkable. Due to underlying chronic neurologic problems, and unavailability of Neurology consultation here, patient was communicated regarding the possibility of transfer to [facility] but she denied. 7:05 p.m. patient was signed out to me by a.m. physician. This is a 75-year-old obese female who was sent from her primary care physician's office with a note that patient has been having paresthesias in multiple areas of her body including the left lower extremity as well as chest discomfort. Apparently the paresthesias has been going, she denied any facial droop blurred vision diplopia slurred speech motor weakness or seizure activity. She denied any headache. She denied diaphoresis presyncope or syncope associated with the chest pain most discomfort is mid central with no particular radiation. She has not taken anything at home for relief Temperature 98.2 pulse 90 respirations 18 blood pressure 162/60 with a pulse oximetry of 98% on room air Morbidly obese female General: awake, alert, NAD Head/Face: Normocephalic, atraumatic Eyes: PERRL, EOMI, vision at baseline ENT: oral cavity clear, TMs clear, no signs of infection Neck: Trachea midline, supple, no nuchal rigidity Cardiovascular: RRR, normal S1/S2, No MRGs, no JVD Respiratory: CTAB, no respiratory distress, No rales or wheezes Abdomen: Soft, non-tender, non-distended, normal bowel sounds, no guarding or rebound. Skin: Warm, dry, normal turgor, no rash MS/Extremity: Pulses equal, no cyanosis, neurovascular intact, FROM Neuro: COAx4, GCS 15, strength 5/5, CN 2-12 intact, normal cerebellar exam, Psych: Normal behavior, mood, and affect normal Extremities-trace edema without any palpable cords, Homans sign is negative 7:15 p.m. labs reviewed CBC is with a normal limits BNP 7 shows a bicarb of 34 otherwise negative. Urinalysis is unremarkable. Magnesium 1.5 Chest x-ray is unremarkable for any acute infiltrate. A CT scan of the head was requested by the a.m. team which is still pending at this time. 8:[address] scan of the head results still pending 9:[address] scan of the head without contrast-multiple hypodensities in the temporal area suggestive of an acute stroke. Age related atrophy and chronic microvascular disease also was noted. I have updated the patient on all the labs and the CT scan results and recommended transfer to a facility with a neurology services. Patient stated t hat she had very bad experience at [facility]. We will request referral to [facility]. 10:00 p.m. transfer center from [facility] connected me to Dr. Rodriguez, neurologist and he accepted the patient in transfer. I have also spoken to ER physician and updated him on available results so far Rationale: Tests considered and ordered secondary to shared decision making include: labs, ECG and radiology Previous outside records reviewed: Old ER visits. Risk of complication and/or morbidity or mortality of patient management: None Medications-Per medication reconciliation Need for hospitalization: Patient does meet criteria for hospitalization. Need for emergency major/minor surgery: No There are no social concerns with this patient. Prescription drug management Prescriptions will include symptomatic care Patient's prior external medical records from other ER visits were reviewed by me as indicated. Prior testing and results from previous visits were reviewed. Prior tests were taken into account with medical decision making and resource utilization, independent historian/historians were used to obtain complete medical history. I independently interpreted the test that were performed, results were reviewed by me and considered findings on radiology if ordered. Medical management and examination interpretation discussions were had by me with other qualified healthcare professionals as indicated for the patient's care. THERE IS NO AVAILABILITY OF NEUROLOGY SERVICES AT [facility], PATIENT WILL BE TRANSFERRED TO [facility] FOR FURTHER NEUROLOGICAL EVALUATION. ED Course Orders Procedure Category Date Status Time 12 Lead Ekg Tracing- EKG 05/29/25 Complete Technical 14:02 Cbc With Differential LAB 05/29/25 Complete 14:18 Chest 1vw RAD 05/29/25 Resulted 14:18 Magnesium LAB 05/29/25 Complete 14:18 Creatine Kinase, Total LAB 05/29/25 Complete 14:18 Troponin I High LAB 05/29/25 Complete Sensitivity 14:18 Urinalysis Profile LAB 05/29/25 Complete 14:18 Basic Metabolic Panel LAB 05/29/25 Complete 14:18 Magnesium 2gm Premix PHA 9/17/25 Complete 50ml (Magnesium 2gm 15:30 Ct Head/Brain W/O CT 05/29/25 Resulted Contrast 17:50 Current Medications Medications (Trade) Dose Ordered Sig/Sunshine Route PRN Reason Start Time Stop Time Status Last Admin Dose Admin Magnesium Sulfate 50 ml @ 0 mls/hr PROTOCOL IV 05/29/25 15:30 05/29/25 23:32 DC 05/29/25 17:11 Vital Signs Date Time Temp Pulse Resp B/P (MAP) Pulse Ox O2 Delivery O2 Flow Rate FiO2 05/29/25 23:14 98.1 74 121/50 97 Room Air* 0 21 05/29/25 22:34 98.1 76 16 122/48 99 Room Air* 0 05/29/25 21:00 98.2 77 16 146/49 99 Room Air* 0 05/29/25 20:10 98.2 74 16 148/56 99 Room Air* 0 05/29/25 19:34 98.2 76 16 155/49 99 Room Air* 0 05/29/25 18:23 97.3 76 16 164/81 100 Room Air* 0 05/29/25 15:58 98.1 86 16 136/64 98 Room Air* 0 05/29/25 13:54 98.2 90 18 162/60 98 Room Air 0 7:00 p.m. patient was signed out to me by a.m. physician 10:[address] Rodriguez, neurologist at [facility] who has a accepted the patient as ER to ER transfer. Also updated the ER physician and discussed extensively her presentation lab results as well as CT scan findings of ill-defined densities in the temporal lobe concerning for an acute stroke Patient was accepted by ER physician also for transfer from [facility]. DX & DISP Disposition: Transfer Departure Impression: Primary Impression: Cerebrovascular accident Additional Impressions: Paresthesia, Hypomagnesemia Condition: Stable Additional Instructions: THE PATIENT HAS BEEN INFORMED ABOUT ALL THE DIAGNOSTIC TESTS AND PROCEDURES CARRIED OUT IN THE EMERGENCY ROOM TODAY AND HAS CONFIRMED UNDERSTANDING OF THE RESULTS. PATIENT WILL BE TRANSFERRED TO A FACILITY THAT PROVIDES A HIGHER LEVEL OF CARE SINCE SUCH SERVICES ARE NOT ACCESSIBLE LOCALLY OR WITHIN OUR IMMEDIATE COMMUNITY. THE PATIENT IS ALERT ORIENTED AND NOT EXPERIENCING ANY ACUTE DISTRESS. THERE ARE NO SIGNS OF SEPSIS AND PATIENT'S HEMODYNAMIC STATUS IS STABLE AT THE MOMENT. MEDICALLY, THE PATIENT IS CONSIDERED STABLE FOR TRANSFER PATIENT ACCEPTED BY DR. RODRIGUEZ NEUROLOGIST AT [facility] AND EMERGENCY ROOM AT [facility] FOR TRANSFER Referrals: GREGORY GONZALES MD (PCP) ROBERTO URRUTIA MD May 29, 2025 14:55 RAFAEL CHAND MD May 29, 2025 19:01 PETER BUTLER MD May 29, 2025 22:18
[2025-05-29 15:04] LABS: CREATINE KINASE, TOTAL 125.0 U/L (21-232)
--- NOTE | 2025-05-29 15:13 | HMCIMG ---
EXAM: CR Chest, 1 View. CLINICAL HISTORY: CP COMPARISON: April 23, 2025 FINDINGS: LUNGS: There is no mass, infiltrate, or acute pulmonary abnormality. PLEURAL SPACES: No evidence of pleural effusion or pneumothorax. MEDIASTINUM: Cardiac size and mediastinal contours within normal limits. BONES: No acute osseous abnormality. IMPRESSION: No acute cardiopulmonary pathology is evident. /[place]
[2025-05-29 15:47] LABS: APPEARANCE,URINE CLEAR (CLEAR); GLUCOSE, URINE (UA) NEGATIVE (NEGATIVE); LEUKOCYTE ESTERASE ,URINE NEGATIVE Leu/uL (NEGATIVE); NITRATE,URINE NEGATIVE (NEGATIVE); OCCULT BLOOD,URINE NEGATIVE (NEGATIVE)
[2025-05-29 15:52] LABS: ADD UA MICROSCOPIC NO
[2025-05-29] MEDS: MAGNESIUM 2GM PREMIX 50ML 50 ML IV SCH (17:11)
--- NOTE | 2025-05-29 18:48 | EKG ---
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
--- NOTE | 2025-05-29 19:39 | HMCIMG ---
EXAM: Non-contrast CT examination of the Brain. CLINICAL HISTORY: Left sided weakness TECHNIQUE: Thin collimated axial CT images of the brain were obtained, with sagittal and coronal reformatted images also submitted. The CT scan was performed according to ALARA (As Low as Reasonably Achievable) principles. CONTRAST USED: None. COMPARISON: Prior CT brain dated April 23, 2025. FINDINGS: Mild generalized brain atrophy and chronic microvascular ischemic white matter disease. Subtle ill-defined hypodensities are seen in the right temporal lobe. No acute hemorrhage, mass, or mass effect. No hydrocephalus or abnormal extra-axial fluid collections. The posterior fossa is unremarkable. The skull base and calvarium are intact. The included portions of the paranasal sinuses and mastoid air cells are clear. Deviated nasal septum towards the left. IMPRESSION: * Subtle ill-defined hypodensities in the right temporal lobe, concerning for acute infarct. MRI brain with DWI is recommended for further evaluation. * Mild generalized brain atrophy and chronic microvascular ischemic white matter disease. /[place]
--- NOTE | 2025-05-29 19:51 | NUR ---
ER PHYSICIAN AWARE OF CT HEAD W/O CONTRAST
--- NOTE | 2025-05-29 20:16 | NUR ---
COMPO CASTER MADE AWARE OF NEED FOR STROKE TRANSFER
[2025-05-29 22:34] VITALS: RESP 16
[2025-05-29 23:14] VITALS: BP 121/50; PULSE 74; TEMP 98.1; O2SAT 97
--- NOTE | 2025-05-29 23:30 | NUR ---
REPORT GIVEN TO PAT YANEZ RN, AT [facility]
== END 2025-05-29 23:31 | disposition short-term general hospital (02) ==
LOC: EDH 13:51
DX: I63.9 Cerebral infarction, unspecified (principal); E83.42 Hypomagnesemia; R20.2 Paresthesia of skin; E78.00 Pure hypercholesterolemia, unspecified; I10 Essential (primary) hypertension; Z79.890 Hormone replacement therapy; Z79.899 Other long term (current) drug therapy; Z90.710 Acquired absence of both cervix and uterus
CPT/HCPCS: 99285; 96365; 70450; 96366; 71045; 82550; 83735; 84484; 80048; 85025; 81003; 36415; 93005; J3475

== ENCOUNTER 2025-09-05 00:06 | Emergency (ER) | payer MEDICARE ==
[~2025-09-05] VITALS: Ht 157.5 cm; Wt 82.1 kg
[2025-09-05 00:09] VITALS: BP 169/80; PULSE 85; TEMP 98.1
--- NOTE | 2025-09-05 00:45 | ERN ---
General Chief Complaint: Multiple Complaints Stated Complaint: FATIGUE, R CHEST PAIN, COUGH, FEVER,CHILLS Time Seen by MD: 00:09 Source: patient History of Present Illness Initial Comments PATIENT IS ALSO COMING IN BECAUSE SHE HAS A SHAKING EPISODE EARLIER TODAY. SHE STATES HE HAD SOMETHING SIMILAR IN THE PAST BUT WAS ACCOMPANIED WITH A SHOULDER PAIN BUT TODAY SHE DID NOT HAVE SHOULDER PAIN SHE JUST CAME IN TO THE [facility] WHICH SUBSIDED ON ITS OWN. Allergies: Coded Allergies: thimerosal (Unverified Allergy, Unknown, 06/28/23) Home Meds Active Scripts Meclizine HCl (Meclizine HCl) 25 Mg Tablet, 25 MG PO TID for vertigo, #30 TAB 0 Refills Prov:LADAN REBOLLAR 05/27/25 Methylprednisolone (Medrol) 4 Mg Tab.ds.pk, 1 TAB PO AD for 6 Days, #21 TAB 0 Refills continue from day 3 dose as you have received day 1 and day 2 doses at hospital Prov:DORA JARA MD 04/26/25 Amoxicillin/Potassium Clav (Augmentin 500-125 Tablet) 500 Mg-125 Mg Tablet, 1 TAB PO BID for 14 Days, #28 TAB 0 Refills Prov:DORA JARA MD 04/26/25 Meclizine HCl (Meclizine HCl) 12.5 Mg Tablet, 12.5 MG PO BID PRN for DIZZINESS for 3 Days, #6 TAB 0 Refills Prov:DORA JARA MD 04/26/25 Reported Medications Amlodipine Besylate (Amlodipine Besylate) 2.5 Mg Tablet, 2.5 TAB PO DAILY 04/24/25 Losartan Potassium (Losartan Potassium) 50 Mg Tablet, 1 TAB PO DAILY 04/24/25 Levothyroxine Sodium (Levothroid/Synthroid) 100 Mcg Tab, 1 TAB PO DAILY 04/24/25 Tramadol Hcl (Tramadol HCl) 50 Mg Tablet, 1 TAB PO BID PRN for PAIN 04/24/25 Estradiol (Estrace) 1 Mg Tablet, 1 TAB PO DAILY 04/24/25 Past Medical History Past Medical History: Asthma, High Cholesterol, Hypertension, UTI Medical History Other: VERTIGO Past Surgical History: Hysterectomy Surgical History Other: RT OVARIAN REMOVAL, RT EYE SX, HEART CATH Family History Family History: DM, HTN Social History Social History: Negative, Lives with family Female( History) History: Not Applicable ROS Dictation CONSTITUTIONAL: NO CHILLS, NO FEVER, NO WEAKNESS, NO DIAPHORESIS, NO MALAISE. HEAD/FACE: NO SIGNS OF TRAUMA. EENT: NO EYE PAIN, NO BLURRED VISION, NO TEARING, NO DOUBLE VISION, NO EAR PAIN, NO EAR DISCHARGE, NO NOSE PAIN, NO NASAL CONGESTION, NO THROAT PAIN, NO T HROAT SWELLING, NO MOUTH PAIN. RESPIRATORY: NO COUGH, NO ORTHOPNEA, NO SOB, NO STRIDOR, NO WHEEZING. CARDIOVASCULAR: NO CHEST PAIN, NO EDEMA, NO PALPITATIONS, NO SYNCOPE. GASTROINTESTINAL/ABDOMINAL: NO ABDOMINAL PAIN, NO CONSTIPATION, NO DIARRHEA, N O NAUSEA, NO VOMITING. GENITOURINARY: NO ABNORMAL DISCHARGE, NO DYSURIA, NO FREQUENT URINATION, NO HEMATURIA. NO COMPLAINTS OF PAIN IN THE GENITALS. MUSCULOSKELETAL: NO BACK PAIN, NO GOUT, JOINT PAIN, NO JOINT SWELLING, MUSCLE PAIN, NO MUSCLE STIFFNESS, NO NECK PAIN. INTEGUMENTARY: NO CHANGE IN COLOR, NO CHANGE IN HAIR/NAILS, NO DRYNESS, NO LESION, NO LUMPS, NO RASH. NEUROLOGICAL/PSYCH: NO ANXIETY, NOT DEPRESSED, NO EMOTIONAL PROBLEM, NO HEADACHE, NO NUMBNESS, NO PRE-EXISTING DEFICIT, NO HISTORY OF SEIZURES, NO TREMORS, NO WEAKNESS. HEMATOLOGIC/LYMPHATIC: NOT ANEMIC, NO HISTORY OF BLOOD CLOTS, NO APPARENT BLEEDING, NO BRUISING, GLANDS NOT SWOLLEN. ALL SYSTEMS NEGATIVE, EXCEPT NOTED. Physical Exam Physical Exam Dictation VITAL SIGNS: REVIEWED. GENERAL APPEARANCE: ALERT, ORIENTED X3, NO ACUTE DISTRESS, OBESE. HEAD AND FACE: NON-TRAUMATIC. EYES: PERRL, PINK CONJUNCTIVAS, EYELID NO TRAUMA, ANTERIOR CHAMBER CLEAR. EARS: PINNAS INTACT AND NO SIGNS OF TRAUMA OR ERYTHEMA. EAR CANALS CLEAR AND NO DISCHARGE. TMS NO ERYTHEMA. NOSE: NO DISCHARGE, NO BLEEDING. OROPHARYNX: MOUTH NORMAL, TEETH NO CARIES, TONGUE PINK. PHARYNX CLEAR, NO ERYTHEMA. TONSILS NO EXUDATES, NO ABSCESSES NOTED. MUCOUS MEMBRANE MOIST. NECK: SUPPLE, NON-TENDER, NO THYROMEGALY, NO MASSES, NO JVD, NO BRUITS. BREAST: DEFERRED. CHEST: NO TENDERNESS, NO CREPITUS, NO PARADOXICAL MOVEMENT, NO RETRACTIONS. LUNGS: CLEAR, WELL-VENTILATED, SYMMETRIC, NO RALES, NO WHEEZING, NO RHONCHI, NO STRIDOR, GOOD BREATH SOUNDS BILATERALLY. HEART: REGULAR RATE, REGULAR RHYTHM, NO MURMUR, NO GALLOPS. VASCULAR: NO PERIPHERAL EDEMA. ABDOMEN: SOFT, POSITIVE BOWEL SOUNDS, NONDISTENDED, NO GUARDING, NONTENDER, NO REBOUND, NO MASSES NO HEPATOMEGALY, NO SPLENOMEGALY, NO FORRESTER'S SIGN, NO HERNIAS. RECTAL: DEFERRED. GENITAL: DEFERRED. NEUROLOGICAL: NORMAL SPEECH, GROSS MOTOR FUNCTION INTACT, GROSS SENSORY FUNCTION INTACT. MUSCULOSKELETAL: NECK NONTENDER, FULL RANGE OF MOTION, BACK NONTENDER, FULL RANGE OF MOTION. EXTREMITIES: NONTENDER, FULL RANGE OF MOTION. SKIN: COLOR PINK, DRY, NO TURGOR, NO RASH, NO LACERATIONS, NO ABRASIONS, NO CO NTUSIONS. LYMPHATICS: DEFERRED. Results Laboratory and Microbiology Lab and Micro Result Laboratory Tests Test 09/05/25 00:46 09/05/25 01:33 White Blood Count 9.0 K/uL (4.8-10.8) Red Blood Count 3.54 MIL/uL (4.00-5.50) L Hemoglobin 10.1 g/dL (12.0-16.0) L Hematocrit 31.4 % (36-48) L Mean Corpuscular Volume 88.7 fL (79-99) Mean Corpuscular Hemoglobin 28.5 pg (27.0-33.0) Mean Corpuscular Hemoglobin Concent 32.2 g/dL (32.0-36.0) Red Cell Distribution Width 12.9 % (11.0-15.5) Platelet Count 225 K/uL (130-400) Mean Platelet Volume 8.8 fL (7.5-10.5) Immature Granulocyte % (Auto) 0.2 % (0-1) Neutrophils (%) (Auto) 74.4 % (40.0-77.0) Lymphocytes (%) (Auto) 17.3 % (21.0-51.0) L Monocytes (%) (Auto) 6.9 % (3.0-13.0) Eosinophils (%) (Auto) 0.9 % (0.0-8.0) Basophils (%) (Auto) 0.3 % (0.0-5.0) Neutrophils # (Auto) 6.7 K/uL (1.8-7.7) Lymphocytes # (Auto) 1.6 K/uL (1.0-4.8) Monocytes # (Auto) 0.6 K/uL (0.1-1.0) Eosinophils # (Auto) 0.08 K/uL (0.00-0.70) Basophils # (Auto) 0.03 K/uL (0.00-0.20) Absolute Immature Granulocyte (auto 0.02 K/uL (0-1) Nucleated Red Blood Cells 0.0 % (0.0-0.19) Sodium Level 140 mmol/L (136-145) Potassium Level 4.1 mmol/L (3.5-5.1) Chloride Level 105 mmol/L (101-111) Carbon Dioxide Level 33 mmol/L (21-32) H Blood Urea Nitrogen 16 mg/dL (7-18) Creatinine 0.8 mg/dL (0.5-1.0) Glomerular Filtration Rate Calc 77 mL/min (>90) Random Glucose 96 mg/dL (70-105) Total Calcium 9.2 mg/dL (8.5-10.1) Total Bilirubin 0.2 mg/dL (0.2-1.0) Aspartate Amino Transf (AST/SGOT) 34 U/L (10-37) Alanine Aminotransferase (ALT/SGPT) 20 U/L (12-78) Alkaline Phosphatase 95 U/L (50-136) Total Protein 7.8 g/dL (6.0-8.3) Albumin 3.1 g/dL (3.5-5.0) L Urine Color Light-Yellow (YELLOW) Urine Appearance TURBID (CLEAR) Urine pH 8.5 (5.0-8.0) H Urine Specific [place] 1.020 (1.001-1.031) Urine Protein NEGATIVE mg/dL (NEGATIVE) Urine Glucose (UA) NEGATIVE mg/dL (NEGATIVE) Urine Ketones NEGATIVE mg/dL (NEGATIVE) Urine Occult Blood NEGATIVE (NEGATIVE) Urine Nitrate NEGATIVE (NEGATIVE) Urine Bilirubin NEGATIVE mg/dL (NEGATIVE) Urine Urobilinogen 0.2 mg/dL (0.2-1.0) Urine Leukocyte Esterase NEGATIVE [place]/uL Urine RBC 6-10 /HPF (0-1) H Urine WBC 0-1 /HPF (0-1) Urine Squamous Epithelial Cells FEW /HPF (0-2) Urine Amorphous Crystals (Auto) MOD /LPF (None Seen) Urine Bacteria RARE /HPF (None Seen) Labs Reviewed?: Yes MDM MDM: DIFFERENTIAL DIAGNOSIS: , DEHYDRATION, SHAKING RATIONALE: TESTS CONSIDERED AND ORDERED SECONDARY TO SHARED DECISION MAKING INCLUDE: PREVIOUS OUTSIDE RECORDS REVIEWED: OLD ER VISITS. RISK OF COMPLICATION AND/OR MORBIDITY OR MORTALITY OF PATIENT MANAGEMENT: NONE MEDICATIONS-PER MEDICATION RECONCILIATION NEED FOR HOSPITALIZATION: PATIENT DOES NOT MEET CRITERIA FOR HOSPITALIZATION. NEED FOR EMERGENCY MAJOR/MINOR SURGERY: NO PATIENT IS A 75-YEAR-OLD FEMALE COMING IN DUE TO AN EPISODE OF SHAKING WHICH HAS A IMPROVED. LABORATORY WORKUP NEGATIVE FOR ACUTE FINDINGS. PATIENT WILL BE DISCHARGED IN STABLE CONDITION SHE STATES HE FEELS BETTER SHE WAS HYDRATED WITH IV FLUIDS. ED Course Orders Procedure Category Date Status Time Cbc With Differential LAB 09/05/25 Complete 00:13 Comprehensive LAB 09/05/25 Complete Metabolic Panel 00:13 Urinalysis LAB 09/05/25 Complete W/Microscopic 00:13 Vital Signs Date Time Temp Pulse Resp B/P (MAP) Pulse Ox O2 Delivery O2 Flow Rate FiO2 09/05/25 00:09 98.1 85 169/80 100 Room Air 0 DX & DISP Disposition: Discharge Departure Impression: Primary Impression: Dehydration Additional Impression: Chronic anemia Condition: Stable Additional Instructions: FOLLOW-UP WITH PRIMARY CARE PROVIDER IN 1 TO 2 DAYS. TAKE MEDICATIONS DIRECTED HERE IN THE EMERGENCY ROOM. OKAY TO CONTINUE HOME MEDICATIONS UNLESS OTHERWISE DISCUSSED DURING YOUR VISIT IN THE EMERGENCY ROOM TODAY. RETURN TO YOUR NEAREST EMERGENCY ROOM IF SYMPTOMS WORSEN OR IF THERE IS NO IMPROVEMENT. CALL 911 IF YOU NEED IMMEDIATE ASSISTANCE. TAKE TYLENOL [id number] NEEDED AND IF NO CONTRAINDICATIONS ARE PRESENT. INCREASE ORAL HYDRATION. A WOUND CULTURE OR URINE CULTURE WAS ORDERED HERE IN THE EMERGENCY ROOM DEPARTMENT PLEASE FOLLOW-UP WITH PRIMARY CARE PROVIDER AND ADVISE THEM TO GET REPORTS FROM OUR FACILITY. IF YOU HAD ANY JEANNIE WRAP/SPLINTS THAT WERE APPLIED HERE, PLEASE DO NOT REMOVE THEM UNTIL YOU SEE YOUR PRIMARY CARE OR SPECIALTY. REFERRALS: Referrals: GREGORY GONZALES MD (PCP) Time of Disposition: 02:37 RAFAEL CHAND MD Sep 05, 2025 00:45
[2025-09-05 00:59] LABS: IMMATURE GRANULOCYTE ABSOLUTE 0.02 K/uL (0-1); NUCLEATED RED BLOOD CELLS 0.0 % (0.0-0.19); PLATELET COUNT (AUTO) 225 K/uL (130-400); RED BLOOD CELL COUNT(AUTO) 3.54 MIL/uL (4.00-5.50); RED CELL DISTRIBUTION WIDTH 12.9 % (11.0-15.5); WHITE BLOOD COUNT (AUTO) 9.0 K/uL (4.8-10.8)
[2025-09-05 01:00] LABS: CREATININE 0.8 mg/dL (0.5-1.0); GLOMERULAR FILTR. RATE CALC 77.0 mL/min (>90); GLUCOSE,RANDOM 96.0 mg/dL (70-105); SODIUM SERUM 140.0 mmol/L (136-145); UREA NITROGEN, BLOOD 16.0 mg/dL (7-18)
[2025-09-05 01:05] LABS: ASPARTATE AMINOTRANSFERASE 34.0 U/L (10-37); TOTAL PROTEIN, SERUM 7.8 g/dL (6.0-8.3)
[2025-09-05 01:51] LABS: APPEARANCE,URINE TURBID (CLEAR); GLUCOSE, URINE (UA) NEGATIVE (NEGATIVE); LEUKOCYTE ESTERASE ,URINE NEGATIVE Leu/uL (NEGATIVE); NITRATE,URINE NEGATIVE (NEGATIVE); OCCULT BLOOD,URINE NEGATIVE (NEGATIVE); SQUAMOUS EPITHELIAL CELL,UR FEW /HPF (0-2)
== END 2025-09-05 02:46 | disposition home or self-care (01) ==
LOC: EDH 00:06
DX: E86.0 Dehydration (principal); D64.9 Anemia, unspecified; E78.00 Pure hypercholesterolemia, unspecified; J45.909 Unspecified asthma, uncomplicated; I10 Essential (primary) hypertension; Z88.8 Allergy status to other drugs, medicaments and biological substances; Z79.890 Hormone replacement therapy; Z79.899 Other long term (current) drug therapy; Z87.440 Personal history of urinary (tract) infections; Z90.710 Acquired absence of both cervix and uterus
CPT/HCPCS: 36415; 80053; 81001; 85025; 99283